=== PATIENT | female | born 1960 | race African-American/Black ===

== ENCOUNTER 2018-12-14 17:45 | Inpatient (IN) ==
[2018-12-14 19:23] LABS: Apearance,Urine CLEAR (Clear); Bilirubin,Urine Small mg/dL (Negative); Blood, Urine Negative (Negative); Glucose,Urine (UA) Negative (Negative); Hyaline Casts,Urine 7 /LPF (0-3); Ketones,Urine Negative (Negative); Mucus,Urine Occasional /LPF (Occasional); Nitrite,Urine Negative (Negative); Protein,Urine 30 MG/DL; RBC,Urine 2 /HPF (0-4); Squamous Epithelial Cell,Urine Occasional /HPF (0-10); Urine Color Dark yellow (Yellow); Urine Specific Gravity 1.029 (1.001-1.035); WBC,Urine 1 /HPF (0-6)
[2018-12-14 19:43] LABS: Basophils % 0.2 % (0.0-0.8); Hematocrit 36.4 VOL% (35.7-47.0); Hemoglobin 11.5 GM/DL (12.0-16.0); Immature Granulocytes % 0.7 %; Lymphocytes # 0.6 10*3/uL (1.4-4.0); Mean Corpuscular HGB Conc 31.6 GM/DL (32-36); Mean Corpuscular Hemoglobin 32 PG (27-34); Mean Corpuscular Volume 102.2 FL (87-102); Mean Platelet Volume 10.6 FL (9.6-12.0); Monocytes # 0.5 10*3/uL (0.11-0.8); Monocytes % 3.2 % (1.7-12.7); Neutrophils # 13.9 10*3/uL (1.4-7.4); Neutrophils % 91.9 % (38.7-73.9); Platelet Count 168 T/CUMM (130-400); Red Blood Count 3.56 MC/CUMM (3.8-5.5); Red Cell Distribution Width 13.6 % (9.3-17.3); White Blood Count 15.1 T/CUMM (4-12)
[2018-12-14 20:01] LABS: Alanine Aminotransferase 33 U/L (13-56); Albumin 3.3 G/DL (3.4-5.0); Alkaline Phosphatase 210 U/L (45-117); Aspartate Amino Transferase 45 U/L (0-37); Blood Urea Nitrogen 23 MG/DL (7-18); Calcium 8.8 MG/DL (8.5-10.1); Glucose 78 MG/DL (74-106); Osmolality,Calculated 275.8 MOS/KG (273-304); Potassium 3.6 MMOL/L (3.5-5.1); Sodium 137 MMOL/L (136-145); Total Protein 7.8 G/DL (6.4-8.3)
[2018-12-14 20:03] LABS: Band Neutrophils 13 % (0-10); Lymphocytes 2 % (20-55); Platelet Estimate Adequate; Segmented Neutrophils 82 % (50-85); Total Cells Counted 100
[2018-12-14] MEDS ORDERED: IBUPROFEN 800 MG TABLET PO STA (21:42)
[2018-12-14] MEDS ORDERED: IBUPROFEN 400 MG TABLET ONE (21:44)
[2018-12-14] MEDS ORDERED: SODIUM CHLORIDE 0.9% 1,000 ML IV STA (22:02)
[2018-12-14] MEDS ORDERED: HYDROmorphone 2 MG/1 ML VIAL IV STA (22:17)
[2018-12-14] MEDS ORDERED: HYDROmorphone 2 MG/1 ML VIAL ONE (22:18)
[2018-12-14] MEDS ORDERED: ONDANSETRON 4 MG/2 ML VIAL IV PRN (22:32)
[2018-12-14] MEDS ORDERED: LORATADINE 10 MG TABLET PO PRN (22:41)
[2018-12-14] MEDS: SODIUM CHLORIDE 0.9% 1,000 ML IV SCH (23:52)
[2018-12-15] MEDS: AZTREONAM 2,000 MG in SYRINGE 1 EACH IV SCH ×4 (01:13→21:36)
[2018-12-15] MEDS: DULoxetine 30 MG CAPSULE PO SCH ×2 (01:13→21:13)
[2018-12-15] MEDS: VANCOMYCIN INJ 2,000 MG in SODIUM CHLORIDE 0.9% 500 ML IV SCH ×2 (01:22→13:54)
[2018-12-15] MEDS: HYDROmorphone 2 MG/1 ML VIAL IV PRN ×6 (02:29→23:14)
[2018-12-15] MEDS: oxyCODONE IR 5 MG TABLET PO PRN ×2 (04:34→21:14)
[2018-12-15] MEDS: LEVOTHYROXINE 100 MCG TABLET PO SCH (05:39)
[2018-12-15 07:17] LABS: Basophils % 0.2 % (0.0-0.8); Hematocrit 34.2 VOL% (35.7-47.0); Hemoglobin 10.8 GM/DL (12.0-16.0); Immature Granulocytes % 0.4 %; Immature Granulocytes Absolute 0.05 #; Lymphocytes # 0.4 10*3/uL (1.4-4.0); Lymphocytes % 3.6 % (21.3-54.2); Mean Corpuscular HGB Conc 31.6 GM/DL (32-36); Mean Corpuscular Hemoglobin 32 PG (27-34); Mean Corpuscular Volume 101.2 FL (87-102); Mean Platelet Volume 10.7 FL (9.6-12.0); Monocytes # 0.5 10*3/uL (0.11-0.8); Monocytes % 4.2 % (1.7-12.7); Neutrophils # 10.4 10*3/uL (1.4-7.4); Neutrophils % 91.6 % (38.7-73.9); Platelet Count 139 T/CUMM (130-400); Red Blood Count 3.38 MC/CUMM (3.8-5.5); White Blood Count 11.3 T/CUMM (4-12)
[2018-12-15 07:36] LABS: Albumin 2.9 G/DL (3.4-5.0); Bilirubin,Total 0.8 MG/DL (0.2-1.0); Calcium 8.2 MG/DL (8.5-10.1); Osmolality,Calculated 265.5 MOS/KG (273-304); Potassium 3.3 MMOL/L (3.5-5.1); Total Protein 7.3 G/DL (6.4-8.3)
[2018-12-15 07:41] LABS: Band Neutrophils 23 % (0-10); Lymphocytes 3 % (20-55); Polychromasia Slight; Segmented Neutrophils 70 % (50-85); Total Cells Counted 100
[2018-12-15 07:42] LABS: Ovalocytes Slight; Platelet Estimate Adequate; Schistocytes Slight; Tear Drop Cells Slight
[2018-12-15] MEDS: ENOXAPARIN 40 MG/0.4 ML SYRINGE SUBCUT SCH (09:22)
[2018-12-15] MEDS: GABAPENTIN 600 MG TABLET PO SCH ×2 (09:23→21:14)
[2018-12-15] MEDS: CHOLECALCIFEROL 1,000 UNIT TABLET PO SCH (09:23)
[2018-12-15] MEDS: FERROUS SULFATE 325 MG TABLET PO SCH ×2 (09:23→21:13)
[2018-12-15] MEDS: DIAZEPAM 5 MG TABLET PO SCH ×2 (09:23→21:14)
[2018-12-15] MEDS: VITAMIN E 400 UNIT CAPSULE PO SCH (09:23)
[2018-12-15] MEDS: PANTOPRAZOLE 40 MG TABLET PO SCH (09:23)
[2018-12-15] MEDS: ASCORBIC ACID 500 MG TABLET PO SCH (09:24)
[2018-12-15] MEDS: valACYclovir 500 MG TABLET PO SCH (09:24)
[2018-12-15] MEDS: CILOSTAZOL 50 MG TABLET PO SCH ×2 (10:48→21:13)
[2018-12-15] MEDS ORDERED: HYDROmorphone 2 MG/1 ML VIAL IV ONE (11:00)
[2018-12-15] MEDS: SODIUM CHLORIDE 0.9% 1,000 ML IV SCH ×2 (11:09→21:12)
[2018-12-15] MEDS: LINACLOTIDE 145 MCG CAPSULE PO SCH (11:11)
[2018-12-15] MEDS: POTASSIUM CHLORIDE 8 MEQ CAPSULE PO SCH (11:11)
[2018-12-15] MEDS: ACETAMINOPHEN 325 MG TABLET PO PRN ×2 (13:53→21:13)
[2018-12-15] MEDS: METHOCARBAMOL 500 MG TABLET PO PRN ×2 (13:54→18:25)
[2018-12-15] MEDS: PERPHENAZINE 2 MG TABLET PO SCH (21:14)
[2018-12-16] MEDS: VANCOMYCIN INJ 2,000 MG in SODIUM CHLORIDE 0.9% 500 ML IV SCH ×2 (00:41→14:08)
[2018-12-16] MEDS: HYDROmorphone 2 MG/1 ML VIAL IV PRN ×7 (02:34→23:44)
[2018-12-16] MEDS: AZTREONAM 2,000 MG in SYRINGE 1 EACH IV SCH ×2 (02:35→08:28)
[2018-12-16] MEDS: LEVOTHYROXINE 100 MCG TABLET PO SCH (07:08)
[2018-12-16] MEDS: CHOLECALCIFEROL 1,000 UNIT TABLET PO SCH (08:23)
[2018-12-16] MEDS: valACYclovir 500 MG TABLET PO SCH (08:24)
[2018-12-16] MEDS: POTASSIUM CHLORIDE 8 MEQ CAPSULE PO SCH (08:24)
[2018-12-16] MEDS: ASCORBIC ACID 500 MG TABLET PO SCH (08:24)
[2018-12-16] MEDS: GABAPENTIN 600 MG TABLET PO SCH ×2 (08:25→21:03)
[2018-12-16] MEDS: CILOSTAZOL 50 MG TABLET PO SCH ×2 (08:25→21:03)
[2018-12-16] MEDS: ACETAMINOPHEN 325 MG TABLET PO PRN ×3 (08:25→23:43)
[2018-12-16] MEDS: VITAMIN E 400 UNIT CAPSULE PO SCH (08:25)
[2018-12-16] MEDS: FERROUS SULFATE 325 MG TABLET PO SCH ×2 (08:25→21:03)
[2018-12-16] MEDS: LINACLOTIDE 145 MCG CAPSULE PO SCH (08:26)
[2018-12-16] MEDS: DIAZEPAM 5 MG TABLET PO SCH ×2 (08:26→21:03)
[2018-12-16] MEDS: PANTOPRAZOLE 40 MG TABLET PO SCH (08:26)
[2018-12-16] MEDS: ENOXAPARIN 40 MG/0.4 ML SYRINGE SUBCUT SCH (08:27)
[2018-12-16] MEDS: SODIUM CHLORIDE 0.9% 1,000 ML IV SCH ×2 (08:28→16:34)
[2018-12-16] MEDS: oxyCODONE IR 5 MG TABLET PO PRN (10:02)
[2018-12-16] MEDS ORDERED: KETOROLAC 30 MG/1 ML VIAL IV ONE (15:00)
[2018-12-16] MEDS: METHOCARBAMOL 500 MG TABLET PO PRN (15:41)
[2018-12-16] MEDS: DULoxetine 30 MG CAPSULE PO SCH (21:03)
[2018-12-16] MEDS: KETOROLAC 15 MG/1 ML VIAL IV SCH (21:03)
[2018-12-16] MEDS: PERPHENAZINE 2 MG TABLET PO SCH (21:03)
[2018-12-17] MEDS: VANCOMYCIN INJ 2,000 MG in SODIUM CHLORIDE 0.9% 500 ML IV SCH ×2 (01:16→13:20)
[2018-12-17] MEDS: KETOROLAC 15 MG/1 ML VIAL IV SCH ×4 (03:35→20:45)
[2018-12-17] MEDS: SODIUM CHLORIDE 0.9% 1,000 ML IV SCH ×2 (05:16→14:24)
[2018-12-17 05:37] LABS: Calcium 8.4 MG/DL (8.5-10.1); Osmolality,Calculated 270.8 MOS/KG (273-304); Potassium 3.4 MMOL/L (3.5-5.1)
[2018-12-17] MEDS: METHOCARBAMOL 500 MG TABLET PO PRN (06:13)
[2018-12-17] MEDS: LEVOTHYROXINE 100 MCG TABLET PO SCH (06:13)
[2018-12-17] MEDS: HYDROmorphone 2 MG/1 ML VIAL IV PRN ×3 (07:06→14:24)
[2018-12-17] MEDS: MULTIVITAMIN (BEROCCA) TABLET PO SCH (08:40)
[2018-12-17] MEDS: CILOSTAZOL 50 MG TABLET PO SCH ×2 (08:40→20:45)
[2018-12-17] MEDS: valACYclovir 500 MG TABLET PO SCH (08:40)
[2018-12-17] MEDS: VITAMIN E 400 UNIT CAPSULE PO SCH (08:40)
[2018-12-17] MEDS: DIAZEPAM 5 MG TABLET PO SCH ×2 (08:40→20:45)
[2018-12-17] MEDS: FERROUS SULFATE 325 MG TABLET PO SCH ×2 (08:41→20:45)
[2018-12-17] MEDS: POTASSIUM CHLORIDE 8 MEQ CAPSULE PO SCH (08:41)
[2018-12-17] MEDS: ENOXAPARIN 40 MG/0.4 ML SYRINGE SUBCUT SCH (08:41)
[2018-12-17] MEDS: GABAPENTIN 600 MG TABLET PO SCH ×2 (08:41→20:45)
[2018-12-17] MEDS: CHOLECALCIFEROL 1,000 UNIT TABLET PO SCH (08:41)
[2018-12-17] MEDS: ASCORBIC ACID 500 MG TABLET PO SCH (08:41)
[2018-12-17] MEDS: LINACLOTIDE 145 MCG CAPSULE PO SCH (08:41)
[2018-12-17] MEDS: PANTOPRAZOLE 40 MG TABLET PO SCH (08:41)
[2018-12-17] MEDS: fentaNYL 100 MCG/HR PATCH TRANSDERM SCH (08:52)
[2018-12-17] MEDS ORDERED: POTASSIUM CHLORIDE 20 MEQ TABLET PO ONE (10:30)
[2018-12-17] MEDS: ERGOCALCIFEROL 50,000 UNIT CAPSULE PO SCH (10:40)
[2018-12-17] MEDS ORDERED: ALBUTEROL/IPRATROPIUM 3 ML NEB RESP TX ONE (12:19)
[2018-12-17] MEDS: ACETAMINOPHEN 325 MG TABLET PO PRN ×2 (12:47→20:45)
[2018-12-17 12:51] LABS: ABG Base Excess -3.1 MMOL/L (-2.5-2.5); ABG HCO3 21.6 MMOL/L (20-26); ABG Oxygen Saturation 86.2 % (95-100); ABG PCO2 32.9 MM HG (35-48); ABG PH 7.409 (7.35-7.45); ABG TCO2 18.8 MMOL/L (23-27); Allen Test Positive
[2018-12-17] MEDS: oxyCODONE IR 5 MG TABLET PO PRN (13:22)
[2018-12-17] MEDS: ALBUTEROL/IPRATROPIUM 3 ML NEB RESP TX SCH ×4 (14:10→23:06)
[2018-12-17] MEDS: DULoxetine 30 MG CAPSULE PO SCH (20:45)
[2018-12-17] MEDS: PERPHENAZINE 2 MG TABLET PO SCH (20:52)
[2018-12-18] MEDS: HYDROmorphone 2 MG/1 ML VIAL IV PRN ×7 (01:02→23:28)
[2018-12-18] MEDS: VANCOMYCIN INJ 2,000 MG in SODIUM CHLORIDE 0.9% 500 ML IV SCH ×2 (01:04→12:24)
[2018-12-18] MEDS: KETOROLAC 15 MG/1 ML VIAL IV SCH ×4 (03:18→20:55)
[2018-12-18] MEDS: ALBUTEROL/IPRATROPIUM 3 ML NEB RESP TX SCH ×5 (03:57→19:58)
[2018-12-18] MEDS: ACETAMINOPHEN 325 MG TABLET PO PRN ×3 (06:21→21:00)
[2018-12-18] MEDS: LEVOTHYROXINE 100 MCG TABLET PO SCH (06:21)
[2018-12-18] MEDS: METHOCARBAMOL 500 MG TABLET PO PRN (06:21)
[2018-12-18] MEDS: VITAMIN E 400 UNIT CAPSULE PO SCH (08:39)
[2018-12-18] MEDS: MULTIVITAMIN (BEROCCA) TABLET PO SCH (08:39)
[2018-12-18] MEDS: DIAZEPAM 5 MG TABLET PO SCH ×2 (08:39→21:02)
[2018-12-18] MEDS: GABAPENTIN 600 MG TABLET PO SCH ×2 (08:39→21:01)
[2018-12-18] MEDS: ASCORBIC ACID 500 MG TABLET PO SCH (08:39)
[2018-12-18] MEDS: valACYclovir 500 MG TABLET PO SCH (08:40)
[2018-12-18] MEDS: PANTOPRAZOLE 40 MG TABLET PO SCH (08:40)
[2018-12-18] MEDS: CILOSTAZOL 50 MG TABLET PO SCH (08:40)
[2018-12-18] MEDS: FERROUS SULFATE 325 MG TABLET PO SCH ×2 (08:40→21:02)
[2018-12-18] MEDS: POTASSIUM CHLORIDE 20 MEQ TABLET PO SCH (08:40)
[2018-12-18] MEDS: SODIUM CHLORIDE 0.9% 1,000 ML IV SCH (08:41)
[2018-12-18] MEDS: ENOXAPARIN 40 MG/0.4 ML SYRINGE SUBCUT SCH (08:41)
[2018-12-18] MEDS: LINACLOTIDE 145 MCG CAPSULE PO SCH (08:54)
[2018-12-18] MEDS ORDERED: FUROSEMIDE 40 MG/4 ML VIAL IV ONE (10:30)
[2018-12-18] MEDS: oxyCODONE IR 5 MG TABLET PO PRN (10:56)
[2018-12-18] MEDS: FUROSEMIDE 20 MG/2 ML VIAL IV SCH (15:47)
[2018-12-18] MEDS: LEVOFLOXACIN INJ 750 MG in PREMIX 1 EACH IV SCH (15:48)
[2018-12-18] MEDS: MEROPENEM 1,000 MG in SODIUM CHLORIDE 0.9% 100 ML IV SCH (17:27)
[2018-12-18] MEDS: PERPHENAZINE 2 MG TABLET PO SCH (21:00)
[2018-12-18] MEDS: DULoxetine 30 MG CAPSULE PO SCH (21:01)
[2018-12-19] MEDS: ALBUTEROL/IPRATROPIUM 3 ML NEB RESP TX SCH ×7 (00:12→23:27)
[2018-12-19] MEDS: oxyCODONE IR 5 MG TABLET PO PRN ×2 (00:38→08:07)
[2018-12-19] MEDS: VANCOMYCIN INJ 2,000 MG in SODIUM CHLORIDE 0.9% 500 ML IV SCH ×3 (00:39→16:49)
[2018-12-19] MEDS: KETOROLAC 15 MG/1 ML VIAL IV SCH ×4 (02:43→20:12)
[2018-12-19] MEDS: MEROPENEM 1,000 MG in SODIUM CHLORIDE 0.9% 100 ML IV SCH ×3 (02:47→20:10)
[2018-12-19] MEDS: HYDROmorphone 2 MG/1 ML VIAL IV PRN ×6 (03:47→23:15)
[2018-12-19 05:46] LABS: Basophils % 0.2 % (0.0-0.8); Eosinophils # 0.2 10*3/uL (0.0-0.87); Eosinophils % 0.9 % (0.00-10.9); Hematocrit 29.5 VOL% (35.7-47.0); Hemoglobin 9.3 GM/DL (12.0-16.0); Immature Granulocytes Absolute 0.68 #; Lymphocytes # 1.5 10*3/uL (1.4-4.0); Lymphocytes % 8.9 % (21.3-54.2); Mean Corpuscular HGB Conc 31.5 GM/DL (32-36); Mean Corpuscular Hemoglobin 32 PG (27-34); Mean Corpuscular Volume 100.3 FL (87-102); Mean Platelet Volume 10.7 FL (9.6-12.0); Monocytes # 1.4 10*3/uL (0.11-0.8); Neutrophils # 13.3 10*3/uL (1.4-7.4); Platelet Count 244 T/CUMM (130-400); Red Blood Count 2.94 MC/CUMM (3.8-5.5); Red Cell Distribution Width 14.8 % (9.3-17.3); White Blood Count 17.1 T/CUMM (4-12)
[2018-12-19 06:05] LABS: Calcium 8.6 MG/DL (8.5-10.1)
[2018-12-19 06:06] LABS: Band Neutrophils 1 % (0-10); Hypochromasia 1+; Lymphocytes 11 % (20-55); Ovalocytes Slight; Platelet Estimate Adequate; Segmented Neutrophils 82 % (50-85); Total Cells Counted 100
[2018-12-19] MEDS: LEVOTHYROXINE 100 MCG TABLET PO SCH (06:47)
[2018-12-19 06:50] LABS: HIV Antigen/Antibody Result Nonreactive (Nonreactive)
[2018-12-19] MEDS: valACYclovir 500 MG TABLET PO SCH (09:46)
[2018-12-19] MEDS: ENOXAPARIN 40 MG/0.4 ML SYRINGE SUBCUT SCH (09:46)
[2018-12-19] MEDS: FUROSEMIDE 20 MG/2 ML VIAL IV SCH ×2 (09:47→18:16)
[2018-12-19] MEDS: FERROUS SULFATE 325 MG TABLET PO SCH ×2 (09:47→20:12)
[2018-12-19] MEDS: GABAPENTIN 600 MG TABLET PO SCH ×2 (09:47→20:12)
[2018-12-19] MEDS: VITAMIN E 400 UNIT CAPSULE PO SCH (09:47)
[2018-12-19] MEDS: DIAZEPAM 5 MG TABLET PO SCH ×2 (09:47→20:12)
[2018-12-19] MEDS: POTASSIUM CHLORIDE 20 MEQ TABLET PO SCH (09:47)
[2018-12-19] MEDS: MULTIVITAMIN (BEROCCA) TABLET PO SCH (09:47)
[2018-12-19] MEDS: ASCORBIC ACID 500 MG TABLET PO SCH (09:48)
[2018-12-19] MEDS: LINACLOTIDE 145 MCG CAPSULE PO SCH (09:49)
[2018-12-19] MEDS: PANTOPRAZOLE 40 MG TABLET PO SCH (09:49)
[2018-12-19] MEDS: PERPHENAZINE 2 MG TABLET PO SCH (20:12)
[2018-12-19] MEDS: DULoxetine 30 MG CAPSULE PO SCH (20:12)
[2018-12-19] MEDS: LEVOFLOXACIN INJ 750 MG in PREMIX 1 EACH IV SCH (22:14)
[2018-12-20] MEDS: METHOCARBAMOL 500 MG TABLET PO PRN ×2 (00:39→23:46)
[2018-12-20] MEDS: ACETAMINOPHEN 325 MG TABLET PO PRN (01:30)
[2018-12-20] MEDS: oxyCODONE IR 5 MG TABLET PO PRN ×2 (01:36→12:06)
[2018-12-20] MEDS: ALBUTEROL/IPRATROPIUM 3 ML NEB RESP TX SCH ×6 (02:51→23:42)
[2018-12-20] MEDS: MEROPENEM 1,000 MG in SODIUM CHLORIDE 0.9% 100 ML IV SCH ×3 (03:00→17:49)
[2018-12-20] MEDS: KETOROLAC 15 MG/1 ML VIAL IV SCH ×4 (03:00→20:20)
[2018-12-20] MEDS: HYDROmorphone 2 MG/1 ML VIAL IV PRN ×5 (03:43→23:42)
[2018-12-20 04:13] LABS: Basophils % 0.2 % (0.0-0.8); Eosinophils # 0.1 10*3/uL (0.0-0.87); Eosinophils % 0.7 % (0.00-10.9); Hematocrit 27.5 VOL% (35.7-47.0); Hemoglobin 8.7 GM/DL (12.0-16.0); Immature Granulocytes % 4.7 %; Lymphocytes # 1.4 10*3/uL (1.4-4.0); Lymphocytes % 8.5 % (21.3-54.2); Mean Corpuscular HGB Conc 31.6 GM/DL (32-36); Mean Corpuscular Hemoglobin 31 PG (27-34); Mean Corpuscular Volume 98.6 FL (87-102); Monocytes # 1.3 10*3/uL (0.11-0.8); Monocytes % 7.5 % (1.7-12.7); Neutrophils # 13.3 10*3/uL (1.4-7.4); Neutrophils % 78.4 % (38.7-73.9); Platelet Count 306 T/CUMM (130-400); Red Blood Count 2.79 MC/CUMM (3.8-5.5); Red Cell Distribution Width 14.5 % (9.3-17.3)
[2018-12-20 04:22] LABS: Calcium 8.3 MG/DL (8.5-10.1); Osmolality,Calculated 266.2 MOS/KG (273-304); Potassium 3.6 MMOL/L (3.5-5.1)
[2018-12-20 06:27] LABS: Anisocytosis 1+; Eosinophils 2 % (0-10); Lymphocytes 12 % (20-55); Segmented Neutrophils 81 % (50-85); Total Cells Counted 100
[2018-12-20 06:28] LABS: Hypochromasia Slight; Ovalocytes Slight; Platelet Estimate Adequate
[2018-12-20] MEDS: LEVOTHYROXINE 100 MCG TABLET PO SCH (06:32)
[2018-12-20] MEDS: POTASSIUM CHLORIDE 20 MEQ TABLET PO SCH (08:14)
[2018-12-20] MEDS: LINACLOTIDE 145 MCG CAPSULE PO SCH (08:14)
[2018-12-20] MEDS: FERROUS SULFATE 325 MG TABLET PO SCH ×2 (08:15→20:20)
[2018-12-20] MEDS: PANTOPRAZOLE 40 MG TABLET PO SCH (08:15)
[2018-12-20] MEDS: valACYclovir 500 MG TABLET PO SCH (08:15)
[2018-12-20] MEDS: ASCORBIC ACID 500 MG TABLET PO SCH (08:15)
[2018-12-20] MEDS: GABAPENTIN 600 MG TABLET PO SCH ×2 (08:15→20:20)
[2018-12-20] MEDS: MULTIVITAMIN (BEROCCA) TABLET PO SCH (08:15)
[2018-12-20] MEDS: VITAMIN E 400 UNIT CAPSULE PO SCH (08:16)
[2018-12-20] MEDS: DIAZEPAM 5 MG TABLET PO SCH ×2 (08:16→20:20)
[2018-12-20] MEDS: FUROSEMIDE 20 MG/2 ML VIAL IV SCH ×2 (08:20→16:17)
[2018-12-20] MEDS: fentaNYL 100 MCG/HR PATCH TRANSDERM SCH (08:21)
[2018-12-20] MEDS: ENOXAPARIN 40 MG/0.4 ML SYRINGE SUBCUT SCH (08:24)
[2018-12-20] MEDS: VANCOMYCIN INJ 2,000 MG in SODIUM CHLORIDE 0.9% 500 ML IV SCH (14:20)
[2018-12-20] MEDS: LEVOFLOXACIN INJ 750 MG in PREMIX 1 EACH IV SCH (16:19)
[2018-12-20] MEDS: DULoxetine 30 MG CAPSULE PO SCH (20:19)
[2018-12-20] MEDS: PERPHENAZINE 2 MG TABLET PO SCH (20:24)
[2018-12-21] MEDS: MEROPENEM 1,000 MG in SODIUM CHLORIDE 0.9% 100 ML IV SCH ×3 (01:13→17:00)
[2018-12-21] MEDS: oxyCODONE IR 5 MG TABLET PO PRN ×2 (02:30→20:24)
[2018-12-21] MEDS: KETOROLAC 15 MG/1 ML VIAL IV SCH ×3 (03:30→15:28)
[2018-12-21] MEDS: ALBUTEROL/IPRATROPIUM 3 ML NEB RESP TX SCH ×5 (03:30→23:00)
[2018-12-21 05:09] LABS: Basophils # 0.1 10*3/uL (0.0-0.2); Basophils % 0.2 % (0.0-0.8); Eosinophils # 0.1 10*3/uL (0.0-0.87); Eosinophils % 0.5 % (0.00-10.9); Hematocrit 27.8 VOL% (35.7-47.0); Hemoglobin 8.9 GM/DL (12.0-16.0); Immature Granulocytes % 4.8 %; Immature Granulocytes Absolute 0.97 #; Lymphocytes # 1.8 10*3/uL (1.4-4.0); Lymphocytes % 8.6 % (21.3-54.2); Mean Corpuscular Hemoglobin 32 PG (27-34); Mean Corpuscular Volume 98.6 FL (87-102); Mean Platelet Volume 9.6 FL (9.6-12.0); Monocytes # 1.3 10*3/uL (0.11-0.8); Monocytes % 6.5 % (1.7-12.7); Neutrophils # 16.1 10*3/uL (1.4-7.4); Neutrophils % 79.4 % (38.7-73.9); Platelet Count 359 T/CUMM (130-400); Red Blood Count 2.82 MC/CUMM (3.8-5.5); Red Cell Distribution Width 14.6 % (9.3-17.3); White Blood Count 20.3 T/CUMM (4-12)
[2018-12-21 05:29] LABS: Calcium 8.4 MG/DL (8.5-10.1); Osmolality,Calculated 272.8 MOS/KG (273-304); Potassium 3.8 MMOL/L (3.5-5.1)
[2018-12-21] MEDS: LEVOTHYROXINE 100 MCG TABLET PO SCH (05:32)
[2018-12-21] MEDS: HYDROmorphone 2 MG/1 ML VIAL IV PRN ×5 (05:32→22:17)
[2018-12-21 05:44] LABS: Anisocytosis 1+; Band Neutrophils 1 % (0-10); Hypochromasia 1+; Lymphocytes 10 % (20-55); Platelet Estimate Adequate; Segmented Neutrophils 81 % (50-85); Total Cells Counted 100
[2018-12-21] MEDS: FUROSEMIDE 20 MG/2 ML VIAL IV SCH ×2 (09:30→16:05)
[2018-12-21] MEDS: MULTIVITAMIN (BEROCCA) TABLET PO SCH (09:44)
[2018-12-21] MEDS: valACYclovir 500 MG TABLET PO SCH (09:44)
[2018-12-21] MEDS: DIAZEPAM 5 MG TABLET PO SCH ×2 (09:44→20:24)
[2018-12-21] MEDS: VITAMIN E 400 UNIT CAPSULE PO SCH (09:45)
[2018-12-21] MEDS: GABAPENTIN 600 MG TABLET PO SCH ×2 (09:45→20:23)
[2018-12-21] MEDS: ASCORBIC ACID 500 MG TABLET PO SCH (09:45)
[2018-12-21] MEDS: FERROUS SULFATE 325 MG TABLET PO SCH ×2 (09:45→20:24)
[2018-12-21] MEDS: LINACLOTIDE 145 MCG CAPSULE PO SCH (09:45)
[2018-12-21] MEDS: PANTOPRAZOLE 40 MG TABLET PO SCH (09:45)
[2018-12-21] MEDS: ENOXAPARIN 40 MG/0.4 ML SYRINGE SUBCUT SCH (09:46)
[2018-12-21] MEDS: VANCOMYCIN INJ 2,000 MG in SODIUM CHLORIDE 0.9% 500 ML IV SCH (14:00)
[2018-12-21] MEDS: POTASSIUM CHLORIDE 20 MEQ TABLET PO SCH (15:27)
[2018-12-21] MEDS: LEVOFLOXACIN INJ 750 MG in PREMIX 1 EACH IV SCH (16:30)
[2018-12-21] MEDS: DULoxetine 30 MG CAPSULE PO SCH (20:22)
[2018-12-21] MEDS: PERPHENAZINE 2 MG TABLET PO SCH (20:22)
[2018-12-21] MEDS: SENNA 8.6 MG TABLET PO SCH (22:48)
[2018-12-21] MEDS: LUBIPROSTONE 24 MCG CAPSULE PO SCH (22:49)
[2018-12-21] MEDS: METHOCARBAMOL 500 MG TABLET PO PRN (23:25)
[2018-12-22] MEDS: HYDROmorphone 2 MG/1 ML VIAL IV PRN ×7 (00:24→21:08)
[2018-12-22] MEDS: MEROPENEM 1,000 MG in SODIUM CHLORIDE 0.9% 100 ML IV SCH ×2 (00:44→09:27)
[2018-12-22] MEDS: ACETAMINOPHEN 325 MG TABLET PO PRN (00:45)
[2018-12-22] MEDS: ALBUTEROL/IPRATROPIUM 3 ML NEB RESP TX SCH ×6 (02:40→22:41)
[2018-12-22] MEDS: oxyCODONE IR 5 MG TABLET PO PRN ×3 (03:23→23:06)
[2018-12-22 05:30] LABS: Basophils # 0.1 10*3/uL (0.0-0.2); Basophils % 0.3 % (0.0-0.8); Eosinophils # 0.1 10*3/uL (0.0-0.87); Eosinophils % 0.2 % (0.00-10.9); Hematocrit 27.1 VOL% (35.7-47.0); Hemoglobin 8.9 GM/DL (12.0-16.0); Immature Granulocytes % 4.4 %; Immature Granulocytes Absolute 1.08 #; Lymphocytes # 1.9 10*3/uL (1.4-4.0); Lymphocytes % 7.7 % (21.3-54.2); Mean Corpuscular HGB Conc 32.8 GM/DL (32-36); Mean Corpuscular Hemoglobin 32 PG (27-34); Mean Corpuscular Volume 98.5 FL (87-102); Mean Platelet Volume 9.5 FL (9.6-12.0); Monocytes # 1.3 10*3/uL (0.11-0.8); Monocytes % 5.3 % (1.7-12.7); Neutrophils # 19.9 10*3/uL (1.4-7.4); Neutrophils % 82.1 % (38.7-73.9); Platelet Count 397 T/CUMM (130-400); Red Blood Count 2.75 MC/CUMM (3.8-5.5); Red Cell Distribution Width 14.5 % (9.3-17.3); White Blood Count 24.3 T/CUMM (4-12)
[2018-12-22 05:58] LABS: Band Neutrophils 4 % (0-10); Hypochromasia 1+; Lymphocytes 4 % (20-55); Platelet Estimate Adequate; Segmented Neutrophils 86 % (50-85); Total Cells Counted 100
[2018-12-22 06:06] LABS: Calcium 8.9 MG/DL (8.5-10.1); Osmolality,Calculated 265.2 MOS/KG (273-304); Potassium 4.1 MMOL/L (3.5-5.1)
[2018-12-22] MEDS: LEVOTHYROXINE 100 MCG TABLET PO SCH (06:26)
[2018-12-22] MEDS ORDERED: MIDAZOLAM 10 MG/2 ML VIAL ONE (07:25)
[2018-12-22] MEDS ORDERED: MEPERIDINE 25 MG/1 ML VIAL ONE (07:25)
[2018-12-22] MEDS ORDERED: SODIUM CHLORIDE 0.9% 1,000 ML IV SCH (07:30)
[2018-12-22] MEDS ORDERED: MEPERIDINE 25 MG/1 ML VIAL IV ONE (08:14)
[2018-12-22] MEDS ORDERED: MIDAZOLAM 2 MG/2 ML VIAL IV ONE (08:14)
[2018-12-22] MEDS: FUROSEMIDE 20 MG/2 ML VIAL IV SCH ×2 (09:30→16:23)
[2018-12-22] MEDS: ENOXAPARIN 40 MG/0.4 ML SYRINGE SUBCUT SCH (09:38)
[2018-12-22] MEDS ORDERED: oxyCODONE IR 5 MG TABLET PO PRN (11:50)
[2018-12-22] MEDS: POLYETHYLENE GLYCOL POWDER 17 GM PACK PO SCH ×2 (12:24→21:15)
[2018-12-22] MEDS: POTASSIUM CHLORIDE 20 MEQ TABLET PO SCH (12:25)
[2018-12-22] MEDS: ASCORBIC ACID 500 MG TABLET PO SCH (12:25)
[2018-12-22] MEDS: FERROUS SULFATE 325 MG TABLET PO SCH ×2 (12:25→22:00)
[2018-12-22] MEDS: VITAMIN E 400 UNIT CAPSULE PO SCH (12:25)
[2018-12-22] MEDS: MULTIVITAMIN (BEROCCA) TABLET PO SCH (12:25)
[2018-12-22] MEDS: LACTULOSE 20 GM/30 ML UDCUP PO SCH ×2 (12:25→22:00)
[2018-12-22] MEDS: valACYclovir 500 MG TABLET PO SCH (12:25)
[2018-12-22] MEDS: GABAPENTIN 600 MG TABLET PO SCH ×2 (12:25→21:14)
[2018-12-22] MEDS: DOCUSATE SODIUM 100 MG CAPSULE PO SCH ×2 (12:25→21:14)
[2018-12-22] MEDS: DIAZEPAM 5 MG TABLET PO SCH ×2 (12:26→21:14)
[2018-12-22] MEDS: PANTOPRAZOLE 40 MG TABLET PO SCH (12:26)
[2018-12-22] MEDS: LUBIPROSTONE 24 MCG CAPSULE PO SCH ×2 (12:26→21:54)
[2018-12-22] MEDS: VANCOMYCIN INJ 2,000 MG in SODIUM CHLORIDE 0.9% 500 ML IV SCH (16:28)
[2018-12-22] MEDS: LEVOFLOXACIN INJ 750 MG in PREMIX 1 EACH IV SCH (19:12)
[2018-12-22] MEDS: DULoxetine 30 MG CAPSULE PO SCH (21:14)
[2018-12-22] MEDS: PERPHENAZINE 2 MG TABLET PO SCH (21:53)
[2018-12-22] MEDS: SENNA 8.6 MG TABLET PO SCH (22:01)
[2018-12-22] MEDS ORDERED: SODIUM CHLORIDE 0.9% 1,000 ML IV PRN (23:27)
[2018-12-23] MEDS: HYDROmorphone 2 MG/1 ML VIAL IV PRN ×6 (00:05→23:42)
[2018-12-23 00:24] LABS: Hematocrit 26.7 VOL% (35.7-47.0); Hemoglobin 8.7 GM/DL (12.0-16.0)
[2018-12-23] MEDS: ACETAMINOPHEN 325 MG TABLET PO PRN (01:05)
[2018-12-23] MEDS: METHOCARBAMOL 500 MG TABLET PO PRN ×3 (01:05→20:32)
[2018-12-23] MEDS: ALBUTEROL/IPRATROPIUM 3 ML NEB RESP TX SCH ×6 (02:34→23:28)
[2018-12-23 05:41] LABS: Basophils % 0.2 % (0.0-0.8); Eosinophils # 0.1 10*3/uL (0.0-0.87); Eosinophils % 0.3 % (0.00-10.9); Hematocrit 28.8 VOL% (35.7-47.0); Hemoglobin 9.5 GM/DL (12.0-16.0); Immature Granulocytes Absolute 0.73 #; Lymphocytes % 8.1 % (21.3-54.2); Mean Corpuscular Hemoglobin 32 PG (27-34); Mean Corpuscular Volume 97.6 FL (87-102); Mean Platelet Volume 9.7 FL (9.6-12.0); Monocytes # 1.1 10*3/uL (0.11-0.8); Monocytes % 4.5 % (1.7-12.7); Neutrophils # 20.2 10*3/uL (1.4-7.4); Neutrophils % 83.9 % (38.7-73.9); Platelet Count 458 T/CUMM (130-400); Red Blood Count 2.95 MC/CUMM (3.8-5.5); Red Cell Distribution Width 14.2 % (9.3-17.3); White Blood Count 24.1 T/CUMM (4-12)
[2018-12-23] MEDS: VANCOMYCIN INJ 2,000 MG in SODIUM CHLORIDE 0.9% 500 ML IV SCH ×2 (05:45→18:16)
[2018-12-23 05:56] LABS: Calcium 9.1 MG/DL (8.5-10.1); Osmolality,Calculated 263.4 MOS/KG (273-304); Potassium 4.1 MMOL/L (3.5-5.1)
[2018-12-23 06:00] LABS: Band Neutrophils 1 % (0-10); Hypochromasia 1+; Lymphocytes 8 % (20-55); Polychromasia Slight; Segmented Neutrophils 89 % (50-85); Total Cells Counted 100
[2018-12-23 06:01] LABS: Giant Platelets Few; Macrocytosis Slight
[2018-12-23] MEDS: LACTULOSE 20 GM/30 ML UDCUP PO SCH ×2 (08:05→20:39)
[2018-12-23] MEDS: DIAZEPAM 5 MG TABLET PO SCH ×2 (08:05→20:31)
[2018-12-23] MEDS: LUBIPROSTONE 24 MCG CAPSULE PO SCH ×2 (08:05→20:32)
[2018-12-23] MEDS: DOCUSATE SODIUM 100 MG CAPSULE PO SCH ×2 (08:05→20:32)
[2018-12-23] MEDS: ASCORBIC ACID 500 MG TABLET PO SCH (08:06)
[2018-12-23] MEDS: PANTOPRAZOLE 40 MG TABLET PO SCH (08:06)
[2018-12-23] MEDS: VITAMIN E 400 UNIT CAPSULE PO SCH (08:06)
[2018-12-23] MEDS: GABAPENTIN 600 MG TABLET PO SCH ×2 (08:06→20:33)
[2018-12-23] MEDS: FERROUS SULFATE 325 MG TABLET PO SCH ×2 (08:06→20:33)
[2018-12-23] MEDS: MULTIVITAMIN (BEROCCA) TABLET PO SCH (08:06)
[2018-12-23] MEDS: valACYclovir 500 MG TABLET PO SCH (08:06)
[2018-12-23] MEDS: fentaNYL 100 MCG/HR PATCH TRANSDERM SCH (08:07)
[2018-12-23] MEDS: LEVOTHYROXINE 100 MCG TABLET PO SCH (08:07)
[2018-12-23] MEDS: POTASSIUM CHLORIDE 20 MEQ TABLET PO SCH (08:08)
[2018-12-23] MEDS: POLYETHYLENE GLYCOL POWDER 17 GM PACK PO SCH ×2 (08:09→20:39)
[2018-12-23] MEDS: ENOXAPARIN 40 MG/0.4 ML SYRINGE SUBCUT SCH (08:10)
[2018-12-23] MEDS: FUROSEMIDE 20 MG/2 ML VIAL IV SCH ×2 (08:31→15:50)
[2018-12-23] MEDS: LEVOFLOXACIN INJ 750 MG in PREMIX 1 EACH IV SCH (09:32)
[2018-12-23] MEDS: oxyCODONE IR 5 MG TABLET PO PRN ×3 (10:09→22:11)
[2018-12-23] MEDS: PERPHENAZINE 2 MG TABLET PO SCH (20:32)
[2018-12-23] MEDS: DULoxetine 30 MG CAPSULE PO SCH (20:32)
[2018-12-23] MEDS: SENNA 8.6 MG TABLET PO SCH (20:33)
[2018-12-24] MEDS: oxyCODONE IR 5 MG TABLET PO PRN ×5 (02:45→23:50)
[2018-12-24] MEDS: ALBUTEROL/IPRATROPIUM 3 ML NEB RESP TX SCH ×6 (03:15→19:00)
[2018-12-24] MEDS: HYDROmorphone 2 MG/1 ML VIAL IV PRN ×5 (04:22→20:21)
[2018-12-24 05:55] LABS: Calcium 8.9 MG/DL (8.5-10.1); Osmolality,Calculated 263.4 MOS/KG (273-304)
[2018-12-24 06:10] LABS: Basophils % 0.2 % (0.0-0.8); Eosinophils # 0.1 10*3/uL (0.0-0.87); Eosinophils % 0.4 % (0.00-10.9); Hematocrit 31.2 VOL% (35.7-47.0); Hemoglobin 9.4 GM/DL (12.0-16.0); Immature Granulocytes Absolute 0.38 #; Lymphocytes # 1.5 10*3/uL (1.4-4.0); Lymphocytes % 7.9 % (21.3-54.2); Mean Corpuscular HGB Conc 30.1 GM/DL (32-36); Mean Corpuscular Hemoglobin 31 PG (27-34); Mean Corpuscular Volume 103.7 FL (87-102); Mean Platelet Volume 10.3 FL (9.6-12.0); Neutrophils # 16.1 10*3/uL (1.4-7.4); Neutrophils % 84.5 % (38.7-73.9); Platelet Count 443 T/CUMM (130-400); Red Blood Count 3.01 MC/CUMM (3.8-5.5); Red Cell Distribution Width 14.4 % (9.3-17.3)
[2018-12-24] MEDS: LEVOTHYROXINE 100 MCG TABLET PO SCH (06:30)
[2018-12-24] MEDS: VANCOMYCIN INJ 2,000 MG in SODIUM CHLORIDE 0.9% 500 ML IV SCH ×2 (06:30→17:54)
[2018-12-24 06:31] LABS: Platelet Estimate Adequate
[2018-12-24 06:32] LABS: Hypochromasia Slight; Macrocytosis Slight
[2018-12-24] MEDS: FUROSEMIDE 20 MG/2 ML VIAL IV SCH ×2 (09:20→16:14)
[2018-12-24] MEDS: POTASSIUM CHLORIDE 20 MEQ TABLET PO SCH (09:21)
[2018-12-24] MEDS: LEVOFLOXACIN INJ 750 MG in PREMIX 1 EACH IV SCH (09:21)
[2018-12-24] MEDS: PANTOPRAZOLE 40 MG TABLET PO SCH (09:22)
[2018-12-24] MEDS: DOCUSATE SODIUM 100 MG CAPSULE PO SCH ×2 (09:22→20:25)
[2018-12-24] MEDS: valACYclovir 500 MG TABLET PO SCH (09:23)
[2018-12-24] MEDS: POLYETHYLENE GLYCOL POWDER 17 GM PACK PO SCH ×2 (09:23→20:19)
[2018-12-24] MEDS: VITAMIN E 400 UNIT CAPSULE PO SCH (09:23)
[2018-12-24] MEDS: FERROUS SULFATE 325 MG TABLET PO SCH ×2 (09:23→20:25)
[2018-12-24] MEDS: GABAPENTIN 600 MG TABLET PO SCH ×2 (09:23→20:26)
[2018-12-24] MEDS: ERGOCALCIFEROL 50,000 UNIT CAPSULE PO SCH (09:23)
[2018-12-24] MEDS: ASCORBIC ACID 500 MG TABLET PO SCH (09:23)
[2018-12-24] MEDS: ENOXAPARIN 40 MG/0.4 ML SYRINGE SUBCUT SCH (09:23)
[2018-12-24] MEDS: LACTULOSE 20 GM/30 ML UDCUP PO SCH ×2 (09:39→20:18)
[2018-12-24] MEDS: MULTIVITAMIN (BEROCCA) TABLET PO SCH (09:42)
[2018-12-24] MEDS: LUBIPROSTONE 24 MCG CAPSULE PO SCH ×2 (09:43→20:26)
[2018-12-24] MEDS: DIAZEPAM 5 MG TABLET PO SCH ×2 (16:51→20:25)
[2018-12-24] MEDS: PERPHENAZINE 2 MG TABLET PO SCH (20:20)
[2018-12-24] MEDS: SENNA 8.6 MG TABLET PO SCH (20:25)
[2018-12-24] MEDS: DULoxetine 30 MG CAPSULE PO SCH (20:37)
[2018-12-25] MEDS: HYDROmorphone 2 MG/1 ML VIAL IV PRN ×5 (02:17→22:04)
[2018-12-25] MEDS: ALBUTEROL/IPRATROPIUM 3 ML NEB RESP TX SCH ×7 (03:05→23:03)
[2018-12-25] MEDS: oxyCODONE IR 5 MG TABLET PO PRN ×3 (05:00→18:15)
[2018-12-25] MEDS: VANCOMYCIN INJ 2,000 MG in SODIUM CHLORIDE 0.9% 500 ML IV SCH (05:00)
[2018-12-25] MEDS: LEVOTHYROXINE 100 MCG TABLET PO SCH (06:08)
[2018-12-25] MEDS: LUBIPROSTONE 24 MCG CAPSULE PO SCH ×2 (10:37→21:58)
[2018-12-25] MEDS: ASCORBIC ACID 500 MG TABLET PO SCH (10:37)
[2018-12-25] MEDS: GABAPENTIN 600 MG TABLET PO SCH ×2 (10:37→21:57)
[2018-12-25] MEDS: VITAMIN E 400 UNIT CAPSULE PO SCH (10:37)
[2018-12-25] MEDS: DIAZEPAM 5 MG TABLET PO SCH ×2 (10:37→21:56)
[2018-12-25] MEDS: valACYclovir 500 MG TABLET PO SCH (10:37)
[2018-12-25] MEDS: PANTOPRAZOLE 40 MG TABLET PO SCH (10:38)
[2018-12-25] MEDS: FERROUS SULFATE 325 MG TABLET PO SCH ×2 (10:38→21:56)
[2018-12-25] MEDS: MULTIVITAMIN (BEROCCA) TABLET PO SCH (10:38)
[2018-12-25] MEDS: POTASSIUM CHLORIDE 20 MEQ TABLET PO SCH (10:38)
[2018-12-25] MEDS: FUROSEMIDE 20 MG/2 ML VIAL IV SCH ×2 (10:38→15:40)
[2018-12-25] MEDS: DOCUSATE SODIUM 100 MG CAPSULE PO SCH ×2 (10:38→21:56)
[2018-12-25] MEDS: POLYETHYLENE GLYCOL POWDER 17 GM PACK PO SCH ×2 (10:39→21:55)
[2018-12-25] MEDS: LACTULOSE 20 GM/30 ML UDCUP PO SCH ×2 (10:39→22:04)
[2018-12-25] MEDS: ENOXAPARIN 40 MG/0.4 ML SYRINGE SUBCUT SCH (10:39)
[2018-12-25] MEDS: METHOCARBAMOL 500 MG TABLET PO PRN (19:50)
[2018-12-25] MEDS: ACETAMINOPHEN 325 MG TABLET PO PRN (19:50)
[2018-12-25] MEDS: DULoxetine 30 MG CAPSULE PO SCH (21:56)
[2018-12-25] MEDS: SENNA 8.6 MG TABLET PO SCH (21:56)
[2018-12-25] MEDS: PERPHENAZINE 2 MG TABLET PO SCH (21:56)
[2018-12-26] MEDS: ALBUTEROL/IPRATROPIUM 3 ML NEB RESP TX SCH ×3 (02:29→11:04)
[2018-12-26] MEDS: oxyCODONE IR 5 MG TABLET PO PRN ×3 (03:10→12:15)
[2018-12-26] MEDS: HYDROmorphone 2 MG/1 ML VIAL IV PRN ×2 (04:09→10:23)
[2018-12-26] MEDS: LEVOTHYROXINE 100 MCG TABLET PO SCH (06:07)
[2018-12-26] MEDS: FUROSEMIDE 20 MG/2 ML VIAL IV SCH (09:02)
[2018-12-26] MEDS: fentaNYL 100 MCG/HR PATCH TRANSDERM SCH (09:02)
[2018-12-26] MEDS: ENOXAPARIN 40 MG/0.4 ML SYRINGE SUBCUT SCH (09:03)
[2018-12-26] MEDS: POLYETHYLENE GLYCOL POWDER 17 GM PACK PO SCH (09:03)
[2018-12-26] MEDS: LUBIPROSTONE 24 MCG CAPSULE PO SCH (09:03)
[2018-12-26] MEDS: MULTIVITAMIN (BEROCCA) TABLET PO SCH (09:04)
[2018-12-26] MEDS: ASCORBIC ACID 500 MG TABLET PO SCH (09:04)
[2018-12-26] MEDS: valACYclovir 500 MG TABLET PO SCH (09:04)
[2018-12-26] MEDS: PANTOPRAZOLE 40 MG TABLET PO SCH (09:05)
[2018-12-26] MEDS: DOCUSATE SODIUM 100 MG CAPSULE PO SCH (09:05)
[2018-12-26] MEDS: VITAMIN E 400 UNIT CAPSULE PO SCH (09:05)
[2018-12-26] MEDS: FERROUS SULFATE 325 MG TABLET PO SCH (09:05)
[2018-12-26] MEDS: GABAPENTIN 600 MG TABLET PO SCH (09:05)
[2018-12-26] MEDS: DIAZEPAM 5 MG TABLET PO SCH (09:05)
[2018-12-26] MEDS: LACTULOSE 20 GM/30 ML UDCUP PO SCH (09:07)
[2018-12-26] MEDS: POTASSIUM CHLORIDE 20 MEQ TABLET PO SCH (10:22)
[2018-12-26] MEDS ORDERED: ALTEPLASE 2 MG VIAL ONE (10:39)
[2018-12-26 11:40] VITALS: BP 133/70
== END 2018-12-26 15:29 | disposition home health service (06) | DRG 720 ==
LOC: EDUNIT# → EDBD → N.EDINP 17:45 → N.ED 17:45 → N.EDINP 23:18 → N.2E 23:29 → SUATTDRO 12-15 15:15
PROVIDERS: ADMIT Hospitalist; ATTEND Hospitalist

== ENCOUNTER 2018-12-26 22:19 | Inpatient (IN) ==
[2018-12-26 23:29] LABS: Albumin 2.8 G/DL (3.4-5.0); Bilirubin,Total 0.8 MG/DL (0.2-1.0); Calcium 9.3 MG/DL (8.5-10.1); Osmolality,Calculated 265.7 MOS/KG (273-304); Potassium 4.3 MMOL/L (3.5-5.1); Total Protein 8.7 G/DL (6.4-8.3)
[2018-12-26 23:31] LABS: Basophils % 0.1 % (0.0-0.8); Hematocrit 33.2 VOL% (35.7-47.0); Hemoglobin 10.7 GM/DL (12.0-16.0); Immature Granulocytes % 1.2 %; Immature Granulocytes Absolute 0.29 #; Lymphocytes # 1.1 10*3/uL (1.4-4.0); Lymphocytes % 4.5 % (21.3-54.2); Mean Corpuscular HGB Conc 32.2 GM/DL (32-36); Mean Corpuscular Hemoglobin 32 PG (27-34); Mean Corpuscular Volume 98.2 FL (87-102); Monocytes # 0.6 10*3/uL (0.11-0.8); Monocytes % 2.6 % (1.7-12.7); Neutrophils # 22.3 10*3/uL (1.4-7.4); Neutrophils % 91.6 % (38.7-73.9); Red Blood Count 3.38 MC/CUMM (3.8-5.5); Red Cell Distribution Width 13.8 % (9.3-17.3)
[2018-12-26 23:33] LABS: Platelet Count 629 T/CUMM (130-400); White Blood Count 24.3 T/CUMM (4-12)
[2018-12-27] MEDS ORDERED: ONDANSETRON 4 MG/2 ML VIAL IV PRN (01:31)
[2018-12-27] MEDS ORDERED: BISACODYL 5 MG TABLET PO PRN (01:31)
[2018-12-27] MEDS ORDERED: NICOTINE 21 MG/24 HR PATCH TRANSDERM PRN (01:31)
[2018-12-27 01:45] LABS: ABG HCO3 32.5 MMOL/L (20-26); ABG Oxygen Saturation 95.6 % (95-100); ABG PCO2 45.2 MM HG (35-48); ABG PH 7.475 (7.35-7.45); ABG PO2 85.3 MM HG (80-95); ABG TCO2 33.9 MMOL/L (23-27); Allen Test Positive
[2018-12-27] MEDS: SODIUM CHLORIDE 0.9% 1,000 ML IV SCH ×3 (03:09→18:23)
[2018-12-27 03:16] LABS: Anisocytosis Slight; Band Neutrophils 5 % (0-10); Lymphocytes 5 % (20-55); Macrocytosis Slight; Platelet Estimate Increased; Segmented Neutrophils 87 % (50-85); Total Cells Counted 100
[2018-12-27] MEDS: VANCOMYCIN INJ 2,000 MG in SODIUM CHLORIDE 0.9% 500 ML IV SCH ×2 (04:23→18:37)
[2018-12-27] MEDS: PANTOPRAZOLE 40 MG TABLET PO SCH (08:59)
[2018-12-27] MEDS: ACETAMINOPHEN 325 MG TABLET PO PRN ×4 (09:02→22:43)
[2018-12-28] MEDS: SODIUM CHLORIDE 0.9% 1,000 ML IV SCH ×3 (02:28→17:44)
[2018-12-28] MEDS: ACETAMINOPHEN 325 MG TABLET PO PRN ×3 (02:38→23:29)
[2018-12-28] MEDS: VANCOMYCIN INJ 2,000 MG in SODIUM CHLORIDE 0.9% 500 ML IV SCH ×2 (06:29→17:58)
[2018-12-28 09:23] LABS: Basophils % 0.3 % (0.0-0.8); Eosinophils # 0.1 10*3/uL (0.0-0.87); Eosinophils % 1.1 % (0.00-10.9); Hematocrit 28.6 VOL% (35.7-47.0); Hemoglobin 8.8 GM/DL (12.0-16.0); Immature Granulocytes % 0.7 %; Immature Granulocytes Absolute 0.06 #; Lymphocytes # 1.1 10*3/uL (1.4-4.0); Lymphocytes % 11.5 % (21.3-54.2); Mean Corpuscular HGB Conc 30.8 GM/DL (32-36); Mean Corpuscular Hemoglobin 31 PG (27-34); Mean Corpuscular Volume 101.4 FL (87-102); Monocytes # 0.4 10*3/uL (0.11-0.8); Monocytes % 4.3 % (1.7-12.7); Neutrophils # 7.5 10*3/uL (1.4-7.4); Neutrophils % 82.1 % (38.7-73.9); Platelet Count 583 T/CUMM (130-400); Red Blood Count 2.82 MC/CUMM (3.8-5.5); Red Cell Distribution Width 13.6 % (9.3-17.3); White Blood Count 9.1 T/CUMM (4-12)
[2018-12-28] MEDS: oxyCODONE IR 5 MG TABLET PO PRN ×2 (09:55→17:58)
[2018-12-28] MEDS: PANTOPRAZOLE 40 MG TABLET PO SCH (09:57)
[2018-12-29] MEDS: SODIUM CHLORIDE 0.9% 1,000 ML IV SCH ×4 (00:10→17:12)
[2018-12-29] MEDS: oxyCODONE IR 5 MG TABLET PO PRN ×3 (02:53→22:22)
[2018-12-29] MEDS: VANCOMYCIN INJ 2,000 MG in SODIUM CHLORIDE 0.9% 500 ML IV SCH ×2 (06:10→17:11)
[2018-12-29] MEDS: PANTOPRAZOLE 40 MG TABLET PO SCH (08:08)
[2018-12-29] MEDS: ACETAMINOPHEN 325 MG TABLET PO PRN ×2 (08:11→20:13)
[2018-12-29] MEDS: GABAPENTIN 600 MG TABLET PO SCH (20:13)
[2018-12-29] MEDS: LUBIPROSTONE 24 MCG CAPSULE PO SCH (20:13)
[2018-12-29] MEDS: DOCUSATE SODIUM 100 MG CAPSULE PO SCH (20:13)
[2018-12-30] MEDS: ACETAMINOPHEN 325 MG TABLET PO PRN ×3 (03:48→18:12)
[2018-12-30] MEDS: SODIUM CHLORIDE 0.9% 1,000 ML IV SCH ×2 (03:50→18:08)
[2018-12-30] MEDS: VANCOMYCIN INJ 2,000 MG in SODIUM CHLORIDE 0.9% 500 ML IV SCH (06:21)
[2018-12-30] MEDS: LEVOTHYROXINE 100 MCG TABLET PO SCH (06:22)
[2018-12-30] MEDS: oxyCODONE IR 5 MG TABLET PO PRN ×3 (06:23→21:40)
[2018-12-30] MEDS: LUBIPROSTONE 24 MCG CAPSULE PO SCH ×2 (09:27→20:59)
[2018-12-30] MEDS: DOCUSATE SODIUM 100 MG CAPSULE PO SCH ×2 (09:29→20:59)
[2018-12-30] MEDS: GABAPENTIN 600 MG TABLET PO SCH ×2 (09:31→21:00)
[2018-12-30] MEDS: PANTOPRAZOLE 40 MG TABLET PO SCH (09:31)
[2018-12-30] MEDS: valACYclovir 500 MG TABLET PO SCH (09:31)
[2018-12-30 09:37] LABS: Basophils % 0.5 % (0.0-0.8); Eosinophils # 0.1 10*3/uL (0.0-0.87); Eosinophils % 0.7 % (0.00-10.9); Hemoglobin 8.5 GM/DL (12.0-16.0); Immature Granulocytes % 0.4 %; Immature Granulocytes Absolute 0.03 #; Lymphocytes # 1.4 10*3/uL (1.4-4.0); Mean Corpuscular HGB Conc 31.5 GM/DL (32-36); Mean Corpuscular Hemoglobin 32 PG (27-34); Mean Corpuscular Volume 101.9 FL (87-102); Mean Platelet Volume 8.4 FL (9.6-12.0); Monocytes # 0.4 10*3/uL (0.11-0.8); Monocytes % 5.9 % (1.7-12.7); Neutrophils # 5.6 10*3/uL (1.4-7.4); Neutrophils % 74.5 % (38.7-73.9); Platelet Count 512 T/CUMM (130-400); Red Blood Count 2.65 MC/CUMM (3.8-5.5); Red Cell Distribution Width 13.5 % (9.3-17.3); White Blood Count 7.5 T/CUMM (4-12)
[2018-12-30 09:45] LABS: ABG Base Excess 4.3 MMOL/L (-2.5-2.5); ABG HCO3 28.8 MMOL/L (20-26); ABG Oxygen Saturation 97.4 % (95-100); ABG PH 7.444 (7.35-7.45); ABG TCO2 30.1 MMOL/L (23-27)
[2018-12-30 09:54] LABS: Albumin 2.1 G/DL (3.4-5.0); Bilirubin,Direct 0.15 MG/DL (0.0-0.20); Bilirubin,Indirect 0.3 MG/DL (0.0-1.0); Bilirubin,Total 0.4 MG/DL (0.2-1.0); Calcium 8.7 MG/DL (8.5-10.1); Osmolality,Calculated 274.5 MOS/KG (273-304); Potassium 3.7 MMOL/L (3.5-5.1); Total Protein 6.9 G/DL (6.4-8.3)
[2018-12-30] MEDS: FERROUS SULFATE 325 MG TABLET PO SCH (21:00)
[2018-12-30] MEDS: CILOSTAZOL 50 MG TABLET PO SCH (21:00)
[2018-12-30] MEDS ORDERED: SENNA 8.6 MG TABLET PO SCH (21:00)
[2018-12-30] MEDS: VANCOMYCIN INJ 1,500 MG in SODIUM CHLORIDE 0.9% 500 ML IV SCH (21:00)
[2018-12-30] MEDS: POLYETHYLENE GLYCOL POWDER 17 GM PACK PO SCH (21:05)
[2018-12-31] MEDS: SODIUM CHLORIDE 0.9% 1,000 ML IV SCH ×3 (02:46→10:05)
[2018-12-31] MEDS: ACETAMINOPHEN 325 MG TABLET PO PRN (02:47)
[2018-12-31] MEDS ORDERED: NAPROXEN 250 MG TABLET PO PRN (04:01)
[2018-12-31 05:08] LABS: Calcium 8.8 MG/DL (8.5-10.1); Osmolality,Calculated 277.3 MOS/KG (273-304); Potassium 3.5 MMOL/L (3.5-5.1)
[2018-12-31] MEDS: oxyCODONE IR 5 MG TABLET PO PRN (05:24)
[2018-12-31] MEDS: LEVOTHYROXINE 100 MCG TABLET PO SCH (06:45)
[2018-12-31] MEDS ORDERED: oxyCODONE IR 5 MG TABLET PO ONE (09:09)
[2018-12-31] MEDS: FERROUS SULFATE 325 MG TABLET PO SCH (09:29)
[2018-12-31] MEDS: CILOSTAZOL 50 MG TABLET PO SCH (09:29)
[2018-12-31] MEDS: GABAPENTIN 600 MG TABLET PO SCH (09:29)
[2018-12-31] MEDS: valACYclovir 500 MG TABLET PO SCH (09:29)
[2018-12-31] MEDS: LUBIPROSTONE 24 MCG CAPSULE PO SCH (09:29)
[2018-12-31] MEDS: DOCUSATE SODIUM 100 MG CAPSULE PO SCH (09:29)
[2018-12-31] MEDS: PANTOPRAZOLE 40 MG TABLET PO SCH (09:29)
[2018-12-31] MEDS: VANCOMYCIN INJ 1,500 MG in SODIUM CHLORIDE 0.9% 500 ML IV SCH (09:30)
[2018-12-31] MEDS: POLYETHYLENE GLYCOL POWDER 17 GM PACK PO SCH (09:30)
[2018-12-31] MEDS ORDERED: fentaNYL 50 MCG/HR PATCH TRANSDERM SCH (09:30)
[2018-12-31 10:13] VITALS: BP 161/85
== END 2018-12-31 11:20 | disposition hospice, home (50) | DRG 49 ==
LOC: N.ED 22:19 → SUATTDRO 12-27 01:31 → N.5E 12-27 02:05
PROVIDERS: ADMIT Hospitalist; ATTEND Internal Medicine

== ENCOUNTER 2019-04-24 10:30 | Inpatient (IN) ==
[2019-04-24] MEDS ORDERED: ASPIRIN 325 MG TABLET PO STA (10:58)
[2019-04-24 11:22] LABS: Basophils # 0.1 10*3/uL (0.0-0.2); Basophils % 0.5 % (0.0-0.8); Eosinophils % 0.2 % (0.00-10.9); Hematocrit 28.4 VOL% (35.7-47.0); Hemoglobin 8.8 GM/DL (12.0-16.0); Immature Granulocytes % 0.6 %; Immature Granulocytes Absolute 0.06 #; Lymphocytes # 1.3 10*3/uL (1.4-4.0); Lymphocytes % 11.6 % (21.3-54.2); Mean Corpuscular Volume 90.4 FL (87-102); Monocytes % 7.2 % (1.7-12.7); Neutrophils % 79.9 % (38.7-73.9); Platelet Count 283 T/CUMM (130-400); Red Blood Count 3.14 MC/CUMM (3.8-5.5); Red Cell Distribution Width 15.9 % (9.3-17.3); White Blood Count 10.8 T/CUMM (4-12)
[2019-04-24 11:48] LABS: Calcium 8.9 MG/DL (8.5-10.1); Osmolality,Calculated 271.5 MOS/KG (273-304)
[2019-04-24] MEDS ORDERED: SODIUM CHLORIDE 0.9% 500 ML IV STA ×2 (12:07→15:25)
[2019-04-24 12:39] LABS: Apearance,Urine CLOUDY (Clear); Bacteria,Urine Occasional /HPF (Few); Bilirubin,Urine Negative (Negative); Blood, Urine Moderate mg/dL (Negative); Glucose,Urine (UA) Negative (Negative); Hyaline Casts,Urine 52 /LPF (0-3); Ketones,Urine Negative (Negative); Mucus,Urine Few /LPF (Occasional); Nitrite,Urine Negative (Negative); Protein,Urine 30 MG/DL; RBC,Urine 9 /HPF (0-4); Squamous Epithelial Cell,Urine Occasional /HPF (0-10); Urine Color Amber (Yellow); Urine Specific Gravity 1.014 (1.001-1.035); Urine Urobilinogen < 2.0 EU/DL (0.2-1.0); WBC,Urine 20 /HPF (0-6)
[2019-04-24] MEDS ORDERED: ONDANSETRON 4 MG/2 ML VIAL IV PRN (17:49)
[2019-04-24] MEDS ORDERED: MAGNESIUM SULF RIDER 2 GM in PREMIX 1 EACH IV PRN (17:58)
[2019-04-24] MEDS ORDERED: MAGNESIUM SULF RIDER 4 GM in PREMIX 1 EACH IV PRN (17:58)
[2019-04-24] MEDS: VANCOMYCIN INJ 1,750 MG in SODIUM CHLORIDE 0.9% 500 ML IV SCH (21:08)
[2019-04-24] MEDS: SODIUM CHLORIDE 0.9% 1,000 ML IV SCH (21:08)
[2019-04-24] MEDS: GABAPENTIN 600 MG TABLET PO SCH (21:09)
[2019-04-24] MEDS: DULoxetine 30 MG CAPSULE PO SCH (21:09)
[2019-04-24] MEDS: QUEtiapine 25 MG TABLET PO SCH (21:09)
[2019-04-24] MEDS: oxyCODONE IR 5 MG TABLET PO PRN (22:30)
[2019-04-24] MEDS: chlorproMAZINE 25 MG TABLET PO SCH (22:30)
[2019-04-25 05:53] LABS: Basophils % 0.2 % (0.0-0.8); Eosinophils # 0.1 10*3/uL (0.0-0.87); Eosinophils % 1.3 % (0.00-10.9); Hematocrit 24.8 VOL% (35.7-47.0); Hemoglobin 7.6 GM/DL (12.0-16.0); Immature Granulocytes % 0.3 %; Immature Granulocytes Absolute 0.02 #; Lymphocytes % 16.6 % (21.3-54.2); Mean Corpuscular HGB Conc 30.6 GM/DL (32-36); Mean Corpuscular Volume 90.8 FL (87-102); Mean Platelet Volume 9.8 FL (9.6-12.0); Monocytes % 7.1 % (1.7-12.7); Neutrophils % 74.5 % (38.7-73.9); Platelet Count 267 T/CUMM (130-400); Red Blood Count 2.73 MC/CUMM (3.8-5.5); Red Cell Distribution Width 15.9 % (9.3-17.3); White Blood Count 6.2 T/CUMM (4-12)
[2019-04-25 06:17] LABS: Calcium 8.5 MG/DL (8.5-10.1); Osmolality,Calculated 286.4 MOS/KG (273-304); Thyroid Stimulating Hormone 1.02 uIU/ml (0.358-3.74); VLDL CHOLESTEROL 28.8 MG/DL
[2019-04-25] MEDS: oxyCODONE IR 5 MG TABLET PO PRN ×3 (06:29→21:03)
[2019-04-25] MEDS: LEVOTHYROXINE 100 MCG TABLET PO SCH (06:30)
[2019-04-25 08:54] LABS: % Iron Saturation 7.6 % (18-50); Ferritin 206.5 ng/ml (8-252)
[2019-04-25] MEDS ORDERED: LISINOPRIL 20 MG TABLET PO SCH (09:00)
[2019-04-25 09:03] LABS: Hematocrit 26.2 VOL% (35.7-47.0); Hemoglobin 8.1 GM/DL (12.0-16.0)
[2019-04-25] MEDS: ACETAMINOPHEN 325 MG TABLET PO PRN ×2 (09:10→18:10)
[2019-04-25] MEDS: QUEtiapine 25 MG TABLET PO SCH ×2 (09:10→21:04)
[2019-04-25] MEDS: GABAPENTIN 600 MG TABLET PO SCH ×2 (09:10→21:03)
[2019-04-25] MEDS: FLUCONAZOLE 100 MG TABLET PO SCH (09:10)
[2019-04-25] MEDS: PANTOPRAZOLE 40 MG TABLET PO SCH (09:10)
[2019-04-25] MEDS: valACYclovir 500 MG TABLET PO SCH (09:10)
[2019-04-25] MEDS: ENOXAPARIN 40 MG/0.4 ML SYRINGE SUBCUT SCH (09:11)
[2019-04-25 12:19] LABS: Folate 14.2 NG/ML (5.4-24.0)
[2019-04-25] MEDS: SODIUM CHLORIDE 0.9% 1,000 ML IV SCH (16:17)
[2019-04-25] MEDS: VANCOMYCIN INJ 1,750 MG in SODIUM CHLORIDE 0.9% 500 ML IV SCH (18:49)
[2019-04-25] MEDS: DULoxetine 30 MG CAPSULE PO SCH (21:03)
[2019-04-25] MEDS: chlorproMAZINE 25 MG TABLET PO SCH (21:04)
[2019-04-26 05:30] LABS: Basophils % 0.3 % (0.0-0.8); Eosinophils # 0.1 10*3/uL (0.0-0.87); Eosinophils % 1.3 % (0.00-10.9); Hematocrit 26.5 VOL% (35.7-47.0); Immature Granulocytes % 0.4 %; Immature Granulocytes Absolute 0.03 #; Lymphocytes # 1.3 10*3/uL (1.4-4.0); Lymphocytes % 16.9 % (21.3-54.2); Mean Corpuscular HGB Conc 30.2 GM/DL (32-36); Mean Corpuscular Volume 91.4 FL (87-102); Mean Platelet Volume 9.7 FL (9.6-12.0); Neutrophils % 75.1 % (38.7-73.9); Platelet Count 320 T/CUMM (130-400); Red Cell Distribution Width 15.9 % (9.3-17.3); White Blood Count 7.9 T/CUMM (4-12)
[2019-04-26 06:24] LABS: Calcium 9.5 MG/DL (8.5-10.1); Osmolality,Calculated 277.4 MOS/KG (273-304)
[2019-04-26] MEDS: valACYclovir 500 MG TABLET PO SCH (08:26)
[2019-04-26] MEDS: GABAPENTIN 600 MG TABLET PO SCH ×2 (08:26→21:06)
[2019-04-26] MEDS: ENOXAPARIN 40 MG/0.4 ML SYRINGE SUBCUT SCH (08:27)
[2019-04-26] MEDS: FLUCONAZOLE 100 MG TABLET PO SCH (08:27)
[2019-04-26] MEDS: QUEtiapine 25 MG TABLET PO SCH ×2 (08:27→21:06)
[2019-04-26] MEDS: PANTOPRAZOLE 40 MG TABLET PO SCH (08:27)
[2019-04-26] MEDS: LEVOTHYROXINE 100 MCG TABLET PO SCH (08:27)
[2019-04-26] MEDS: FUROSEMIDE 40 MG/4 ML VIAL IV SCH (08:32)
[2019-04-26] MEDS: oxyCODONE IR 5 MG TABLET PO PRN ×3 (08:41→21:14)
[2019-04-26] MEDS: ACETAMINOPHEN 325 MG TABLET PO PRN (17:56)
[2019-04-26] MEDS: VANCOMYCIN INJ 1,750 MG in SODIUM CHLORIDE 0.9% 500 ML IV SCH (18:03)
[2019-04-26] MEDS: DULoxetine 30 MG CAPSULE PO SCH (21:06)
[2019-04-26] MEDS: chlorproMAZINE 25 MG TABLET PO SCH (21:13)
[2019-04-27 04:55] LABS: Basophils % 0.2 % (0.0-0.8); Eosinophils # 0.1 10*3/uL (0.0-0.87); Eosinophils % 1.4 % (0.00-10.9); Hematocrit 26.4 VOL% (35.7-47.0); Immature Granulocytes % 0.5 %; Immature Granulocytes Absolute 0.04 #; Lymphocytes # 1.3 10*3/uL (1.4-4.0); Lymphocytes % 16.4 % (21.3-54.2); Mean Corpuscular HGB Conc 30.3 GM/DL (32-36); Mean Corpuscular Volume 90.4 FL (87-102); Mean Platelet Volume 9.4 FL (9.6-12.0); Monocytes % 7.1 % (1.7-12.7); Neutrophils % 74.4 % (38.7-73.9); Platelet Count 335 T/CUMM (130-400); Red Blood Count 2.92 MC/CUMM (3.8-5.5); Red Cell Distribution Width 15.9 % (9.3-17.3)
[2019-04-27 05:20] LABS: Calcium 9.6 MG/DL (8.5-10.1); Osmolality,Calculated 280.1 MOS/KG (273-304)
[2019-04-27] MEDS: oxyCODONE IR 5 MG TABLET PO PRN ×3 (05:59→22:38)
[2019-04-27] MEDS: LEVOTHYROXINE 100 MCG TABLET PO SCH (06:00)
[2019-04-27] MEDS: GABAPENTIN 600 MG TABLET PO SCH ×2 (08:49→22:38)
[2019-04-27] MEDS: QUEtiapine 25 MG TABLET PO SCH ×2 (08:49→22:37)
[2019-04-27] MEDS: ENOXAPARIN 40 MG/0.4 ML SYRINGE SUBCUT SCH (08:49)
[2019-04-27] MEDS: FUROSEMIDE 40 MG/4 ML VIAL IV SCH (08:49)
[2019-04-27] MEDS: FLUCONAZOLE 100 MG TABLET PO SCH (08:49)
[2019-04-27] MEDS: PANTOPRAZOLE 40 MG TABLET PO SCH (08:49)
[2019-04-27] MEDS: valACYclovir 500 MG TABLET PO SCH (08:49)
[2019-04-27 10:53] LABS: Lymphocytes,Synovial Fluid 7 %; Neutrophils,Synovial Fluid 93 %
[2019-04-27] MEDS: VANCOMYCIN INJ 1,500 MG in SODIUM CHLORIDE 0.9% 500 ML IV SCH ×2 (14:14→22:48)
[2019-04-27] MEDS ORDERED: IRON SUCROSE 300 MG in SODIUM CHLORIDE 0.9% 100 ML IV ONE (15:09)
[2019-04-27] MEDS: ACETAMINOPHEN 325 MG TABLET PO PRN (16:04)
[2019-04-27] MEDS: chlorproMAZINE 25 MG TABLET PO SCH (22:35)
[2019-04-27] MEDS: DULoxetine 30 MG CAPSULE PO SCH (22:37)
[2019-04-28] MEDS: LEVOTHYROXINE 100 MCG TABLET PO SCH (06:11)
[2019-04-28] MEDS: FUROSEMIDE 40 MG/4 ML VIAL IV SCH (09:00)
[2019-04-28] MEDS: oxyCODONE IR 5 MG TABLET PO PRN ×2 (09:01→16:16)
[2019-04-28] MEDS: ENOXAPARIN 40 MG/0.4 ML SYRINGE SUBCUT SCH (09:01)
[2019-04-28] MEDS: FLUCONAZOLE 100 MG TABLET PO SCH (09:02)
[2019-04-28] MEDS: valACYclovir 500 MG TABLET PO SCH (09:02)
[2019-04-28] MEDS: QUEtiapine 25 MG TABLET PO SCH ×2 (09:02→20:20)
[2019-04-28] MEDS: PANTOPRAZOLE 40 MG TABLET PO SCH (09:02)
[2019-04-28] MEDS: GABAPENTIN 600 MG TABLET PO SCH ×2 (09:02→20:22)
[2019-04-28 09:24] LABS: Basophils % 0.1 % (0.0-0.8); Eosinophils # 0.1 10*3/uL (0.0-0.87); Eosinophils % 0.9 % (0.00-10.9); Hemoglobin 9.4 GM/DL (12.0-16.0); Immature Granulocytes % 0.4 %; Immature Granulocytes Absolute 0.03 #; Lymphocytes # 1.3 10*3/uL (1.4-4.0); Lymphocytes % 16.8 % (21.3-54.2); Mean Corpuscular HGB Conc 31.3 GM/DL (32-36); Mean Corpuscular Volume 88.8 FL (87-102); Mean Platelet Volume 9.4 FL (9.6-12.0); Monocytes % 4.7 % (1.7-12.7); Neutrophils % 77.1 % (38.7-73.9); Platelet Count 421 T/CUMM (130-400); Red Blood Count 3.38 MC/CUMM (3.8-5.5); Red Cell Distribution Width 15.9 % (9.3-17.3); White Blood Count 7.7 T/CUMM (4-12)
[2019-04-28 10:00] LABS: Alanine Aminotransferase 36 U/L (13-56); Albumin 2.6 G/DL (3.4-5.0); Alkaline Phosphatase 153 U/L (45-117); Aspartate Amino Transferase 31 U/L (0-37); Bilirubin,Total < 0.39 MG/DL (0.2-1.0); Blood Urea Nitrogen 5 MG/DL (7-18); Calcium 9.4 MG/DL (8.5-10.1); Glucose 131 MG/DL (74-106); Osmolality,Calculated 277.4 MOS/KG (273-304); Total Protein 7.9 G/DL (6.4-8.3)
[2019-04-28] MEDS: VANCOMYCIN INJ 1,500 MG in SODIUM CHLORIDE 0.9% 500 ML IV SCH ×2 (11:48→23:09)
[2019-04-28] MEDS: METHOCARBAMOL 500 MG TABLET PO PRN ×2 (11:56→21:07)
[2019-04-28] MEDS: ACETAMINOPHEN 325 MG TABLET PO PRN (20:18)
[2019-04-28] MEDS: chlorproMAZINE 25 MG TABLET PO SCH (20:21)
[2019-04-28] MEDS: DULoxetine 30 MG CAPSULE PO SCH (20:21)
[2019-04-29] MEDS: oxyCODONE IR 5 MG TABLET PO PRN ×3 (02:44→21:18)
[2019-04-29 05:06] LABS: Basophils % 0.2 % (0.0-0.8); Eosinophils # 0.1 10*3/uL (0.0-0.87); Eosinophils % 1.4 % (0.00-10.9); Hematocrit 30.3 VOL% (35.7-47.0); Hemoglobin 9.1 GM/DL (12.0-16.0); Immature Granulocytes % 0.4 %; Immature Granulocytes Absolute 0.04 #; Lymphocytes # 1.6 10*3/uL (1.4-4.0); Lymphocytes % 17.5 % (21.3-54.2); Monocytes % 5.8 % (1.7-12.7); Neutrophils % 74.7 % (38.7-73.9); Platelet Count 446 T/CUMM (130-400); Red Blood Count 3.33 MC/CUMM (3.8-5.5); Red Cell Distribution Width 15.8 % (9.3-17.3); White Blood Count 9.2 T/CUMM (4-12)
[2019-04-29 05:39] LABS: Albumin 2.8 G/DL (3.4-5.0); Bilirubin,Total 0.6 MG/DL (0.2-1.0); Calcium 9.6 MG/DL (8.5-10.1); Osmolality,Calculated 280.1 MOS/KG (273-304); Total Protein 7.9 G/DL (6.4-8.3)
[2019-04-29] MEDS: LEVOTHYROXINE 100 MCG TABLET PO SCH (06:11)
[2019-04-29] MEDS: GABAPENTIN 600 MG TABLET PO SCH ×2 (09:30→21:16)
[2019-04-29] MEDS: valACYclovir 500 MG TABLET PO SCH (09:30)
[2019-04-29] MEDS: QUEtiapine 25 MG TABLET PO SCH ×2 (09:30→21:17)
[2019-04-29] MEDS: FLUCONAZOLE 100 MG TABLET PO SCH (09:30)
[2019-04-29] MEDS: ENOXAPARIN 40 MG/0.4 ML SYRINGE SUBCUT SCH (09:30)
[2019-04-29] MEDS: PANTOPRAZOLE 40 MG TABLET PO SCH (09:31)
[2019-04-29] MEDS: FUROSEMIDE 40 MG/4 ML VIAL IV SCH (10:25)
[2019-04-29] MEDS: VANCOMYCIN INJ 1,500 MG in SODIUM CHLORIDE 0.9% 500 ML IV SCH ×2 (11:55→22:49)
[2019-04-29] MEDS: ACETAMINOPHEN 325 MG TABLET PO PRN (12:09)
[2019-04-29] MEDS ORDERED: GENTAMICIN 80 MG/2 ML VIAL ONE ×2 (16:28→17:10)
[2019-04-29] MEDS ORDERED: fentaNYL 100 MCG/2 ML VIAL ONE (17:04)
[2019-04-29] MEDS ORDERED: ONDANSETRON 4 MG/2 ML VIAL IV PRN (17:57)
[2019-04-29] MEDS: HYDROmorphone 2 MG/1 ML VIAL IV PRN ×4 (18:05→18:35)
[2019-04-29] MEDS ORDERED: ROCURONIUM 100 MG/10 ML VIAL IV ONE (18:39)
[2019-04-29] MEDS ORDERED: ONDANSETRON 4 MG/2 ML VIAL ONE (18:39)
[2019-04-29] MEDS ORDERED: LACTATED RINGERS 1,000 ML IV ONE (18:39)
[2019-04-29] MEDS ORDERED: SEVOFLURANE 1 UNIT/15 MINUTE INH ONE (18:39)
[2019-04-29] MEDS ORDERED: PROPOFOL 200 MG/20 ML VIAL IV ONE (18:39)
[2019-04-29] MEDS ORDERED: SUCCINYLCHOLINE 200 MG/10 ML VIAL ONE (18:39)
[2019-04-29] MEDS: chlorproMAZINE 25 MG TABLET PO SCH (21:17)
[2019-04-29] MEDS: DULoxetine 30 MG CAPSULE PO SCH (21:17)
[2019-04-30] MEDS: METHOCARBAMOL 500 MG TABLET PO PRN ×2 (02:09→20:09)
[2019-04-30] MEDS: oxyCODONE IR 5 MG TABLET PO PRN ×4 (02:56→22:24)
[2019-04-30 05:19] LABS: Basophils % 0.2 % (0.0-0.8); Hematocrit 28.4 VOL% (35.7-47.0); Hemoglobin 8.7 GM/DL (12.0-16.0); Immature Granulocytes % 0.6 %; Immature Granulocytes Absolute 0.07 #; Lymphocytes # 1.7 10*3/uL (1.4-4.0); Lymphocytes % 13.8 % (21.3-54.2); Mean Corpuscular HGB Conc 30.6 GM/DL (32-36); Mean Corpuscular Volume 90.7 FL (87-102); Monocytes % 3.4 % (1.7-12.7); Platelet Count 466 T/CUMM (130-400); Red Blood Count 3.13 MC/CUMM (3.8-5.5); Red Cell Distribution Width 15.6 % (9.3-17.3)
[2019-04-30 06:00] LABS: Albumin 2.6 G/DL (3.4-5.0); Bilirubin,Total 0.9 MG/DL (0.2-1.0); Calcium 9.2 MG/DL (8.5-10.1); Osmolality,Calculated 275.5 MOS/KG (273-304); Total Protein 7.4 G/DL (6.4-8.3)
[2019-04-30] MEDS: LEVOTHYROXINE 100 MCG TABLET PO SCH (06:50)
[2019-04-30] MEDS: ENOXAPARIN 40 MG/0.4 ML SYRINGE SUBCUT SCH (09:04)
[2019-04-30] MEDS: PANTOPRAZOLE 40 MG TABLET PO SCH (09:04)
[2019-04-30] MEDS: GABAPENTIN 600 MG TABLET PO SCH ×2 (09:05→20:08)
[2019-04-30] MEDS: valACYclovir 500 MG TABLET PO SCH (09:05)
[2019-04-30] MEDS: QUEtiapine 25 MG TABLET PO SCH ×2 (09:05→20:09)
[2019-04-30] MEDS: FLUCONAZOLE 100 MG TABLET PO SCH (09:05)
[2019-04-30] MEDS: FUROSEMIDE 40 MG/4 ML VIAL IV SCH (09:06)
[2019-04-30] MEDS: VANCOMYCIN INJ 1,500 MG in SODIUM CHLORIDE 0.9% 500 ML IV SCH ×2 (11:12→22:24)
[2019-04-30] MEDS: ACETAMINOPHEN 325 MG TABLET PO PRN ×2 (13:55→20:09)
[2019-04-30] MEDS: DULoxetine 30 MG CAPSULE PO SCH (20:08)
[2019-04-30] MEDS: chlorproMAZINE 25 MG TABLET PO SCH (20:08)
[2019-05-01] MEDS: oxyCODONE IR 5 MG TABLET PO PRN ×3 (04:41→21:47)
[2019-05-01 05:45] LABS: Basophils % 0.2 % (0.0-0.8); Eosinophils # 0.1 10*3/uL (0.0-0.87); Eosinophils % 1.2 % (0.00-10.9); Hematocrit 28.7 VOL% (35.7-47.0); Hemoglobin 8.8 GM/DL (12.0-16.0); Immature Granulocytes % 0.5 %; Immature Granulocytes Absolute 0.04 #; Lymphocytes # 2.1 10*3/uL (1.4-4.0); Mean Corpuscular HGB Conc 30.7 GM/DL (32-36); Mean Corpuscular Volume 91.7 FL (87-102); Mean Platelet Volume 9.1 FL (9.6-12.0); Monocytes % 4.7 % (1.7-12.7); Neutrophils % 68.4 % (38.7-73.9); Platelet Count 468 T/CUMM (130-400); Red Blood Count 3.13 MC/CUMM (3.8-5.5); White Blood Count 8.3 T/CUMM (4-12)
[2019-05-01 06:05] LABS: Albumin 2.7 G/DL (3.4-5.0); Bilirubin,Total 0.4 MG/DL (0.2-1.0); Calcium 9.2 MG/DL (8.5-10.1); Osmolality,Calculated 278.3 MOS/KG (273-304); Total Protein 7.3 G/DL (6.4-8.3)
[2019-05-01] MEDS: LEVOTHYROXINE 100 MCG TABLET PO SCH (06:17)
[2019-05-01] MEDS: PANTOPRAZOLE 40 MG TABLET PO SCH (09:06)
[2019-05-01] MEDS: QUEtiapine 25 MG TABLET PO SCH ×2 (09:06→21:48)
[2019-05-01] MEDS: FLUCONAZOLE 100 MG TABLET PO SCH (09:06)
[2019-05-01] MEDS: ENOXAPARIN 40 MG/0.4 ML SYRINGE SUBCUT SCH (09:06)
[2019-05-01] MEDS: GABAPENTIN 600 MG TABLET PO SCH ×2 (09:06→21:48)
[2019-05-01] MEDS: valACYclovir 500 MG TABLET PO SCH (09:06)
[2019-05-01] MEDS: FUROSEMIDE 40 MG/4 ML VIAL IV SCH (09:07)
[2019-05-01] MEDS: VANCOMYCIN INJ 1,500 MG in SODIUM CHLORIDE 0.9% 500 ML IV SCH ×3 (11:10→23:39)
[2019-05-01] MEDS: chlorproMAZINE 25 MG TABLET PO SCH (21:47)
[2019-05-01] MEDS: DULoxetine 30 MG CAPSULE PO SCH (21:48)
[2019-05-02] MEDS: oxyCODONE IR 5 MG TABLET PO PRN (04:57)
[2019-05-02 05:30] LABS: Basophils % 0.2 % (0.0-0.8); Eosinophils # 0.2 10*3/uL (0.0-0.87); Eosinophils % 2.1 % (0.00-10.9); Hematocrit 29.3 VOL% (35.7-47.0); Hemoglobin 8.8 GM/DL (12.0-16.0); Immature Granulocytes % 0.5 %; Immature Granulocytes Absolute 0.06 #; Lymphocytes % 18.4 % (21.3-54.2); Mean Corpuscular Volume 92.1 FL (87-102); Monocytes % 4.7 % (1.7-12.7); Neutrophils % 74.1 % (38.7-73.9); Platelet Count 538 T/CUMM (130-400); Red Blood Count 3.18 MC/CUMM (3.8-5.5); White Blood Count 11.1 T/CUMM (4-12)
[2019-05-02 05:48] LABS: Alanine Aminotransferase 28 U/L (13-56); Albumin 2.9 G/DL (3.4-5.0); Alkaline Phosphatase 128 U/L (45-117); Aspartate Amino Transferase 19 U/L (0-37); Bilirubin,Total < 0.39 MG/DL (0.2-1.0); Blood Urea Nitrogen 10 MG/DL (7-18); Calcium 9.8 MG/DL (8.5-10.1); Glucose 91 MG/DL (74-106); Osmolality,Calculated 275.5 MOS/KG (273-304)
[2019-05-02] MEDS: LEVOTHYROXINE 100 MCG TABLET PO SCH (06:41)
[2019-05-02] MEDS: VANCOMYCIN INJ 1,500 MG in SODIUM CHLORIDE 0.9% 500 ML IV SCH (06:44)
[2019-05-02] MEDS: QUEtiapine 25 MG TABLET PO SCH ×2 (09:34→20:29)
[2019-05-02] MEDS: valACYclovir 500 MG TABLET PO SCH (09:34)
[2019-05-02] MEDS: GABAPENTIN 600 MG TABLET PO SCH ×2 (09:34→20:29)
[2019-05-02] MEDS: PANTOPRAZOLE 40 MG TABLET PO SCH (09:34)
[2019-05-02] MEDS: FLUCONAZOLE 100 MG TABLET PO SCH (09:34)
[2019-05-02] MEDS: ENOXAPARIN 40 MG/0.4 ML SYRINGE SUBCUT SCH (09:35)
[2019-05-02] MEDS: FUROSEMIDE 40 MG/4 ML VIAL IV SCH (09:35)
[2019-05-02] MEDS: ACETAMINOPHEN 325 MG TABLET PO PRN ×3 (09:49→20:29)
[2019-05-02] MEDS ORDERED: MAGNESIUM HYDROXIDE SUSP 30 ML UDCUP PO ONE (11:13)
[2019-05-02] MEDS ORDERED: BISACODYL 5 MG TABLET PO ONE (11:14)
[2019-05-02] MEDS: DULoxetine 30 MG CAPSULE PO SCH (20:28)
[2019-05-02] MEDS: chlorproMAZINE 25 MG TABLET PO SCH (20:29)
[2019-05-02] MEDS: DOCUSATE SODIUM 100 MG CAPSULE PO SCH (20:29)
[2019-05-03] MEDS: VANCOMYCIN INJ 1,500 MG in SODIUM CHLORIDE 0.9% 500 ML IV SCH ×2 (01:05→17:04)
[2019-05-03 05:07] LABS: Basophils % 0.3 % (0.0-0.8); Eosinophils # 0.2 10*3/uL (0.0-0.87); Eosinophils % 1.9 % (0.00-10.9); Hematocrit 32.3 VOL% (35.7-47.0); Hemoglobin 9.8 GM/DL (12.0-16.0); Immature Granulocytes % 0.5 %; Immature Granulocytes Absolute 0.06 #; Lymphocytes # 2.1 10*3/uL (1.4-4.0); Lymphocytes % 17.4 % (21.3-54.2); Mean Corpuscular HGB Conc 30.3 GM/DL (32-36); Mean Corpuscular Volume 92.6 FL (87-102); Neutrophils % 75.9 % (38.7-73.9); Platelet Count 614 T/CUMM (130-400); Red Blood Count 3.49 MC/CUMM (3.8-5.5); White Blood Count 11.8 T/CUMM (4-12)
[2019-05-03 05:32] LABS: Bilirubin,Total 0.6 MG/DL (0.2-1.0); Calcium 9.6 MG/DL (8.5-10.1); Osmolality,Calculated 275.5 MOS/KG (273-304); Total Protein 8.5 G/DL (6.4-8.3)
[2019-05-03] MEDS: LEVOTHYROXINE 100 MCG TABLET PO SCH (06:55)
[2019-05-03] MEDS: QUEtiapine 25 MG TABLET PO SCH ×2 (09:31→20:57)
[2019-05-03] MEDS: PANTOPRAZOLE 40 MG TABLET PO SCH (09:31)
[2019-05-03] MEDS: valACYclovir 500 MG TABLET PO SCH (09:31)
[2019-05-03] MEDS: GABAPENTIN 600 MG TABLET PO SCH ×2 (09:31→20:56)
[2019-05-03] MEDS: DOCUSATE SODIUM 100 MG CAPSULE PO SCH ×2 (09:31→20:57)
[2019-05-03] MEDS: ACETAMINOPHEN 325 MG TABLET PO PRN ×3 (09:31→20:57)
[2019-05-03] MEDS: FUROSEMIDE 40 MG/4 ML VIAL IV SCH (09:32)
[2019-05-03] MEDS: ENOXAPARIN 40 MG/0.4 ML SYRINGE SUBCUT SCH (09:34)
[2019-05-03] MEDS ORDERED: MAGNESIUM HYDROXIDE SUSP 30 ML UDCUP PO PRN (10:05)
[2019-05-03] MEDS: METHOCARBAMOL 500 MG TABLET PO PRN ×2 (11:13→21:11)
[2019-05-03] MEDS: POLYETHYLENE GLYCOL POWDER 17 GM PACK PO SCH (11:13)
[2019-05-03] MEDS: CETIRIZINE 10 MG TABLET PO SCH (20:56)
[2019-05-03] MEDS: DULoxetine 30 MG CAPSULE PO SCH (20:56)
[2019-05-03] MEDS: chlorproMAZINE 25 MG TABLET PO SCH (21:11)
[2019-05-04] MEDS: ACETAMINOPHEN 325 MG TABLET PO PRN ×4 (03:47→20:51)
[2019-05-04 05:52] LABS: Basophils % 0.2 % (0.0-0.8); Eosinophils # 0.1 10*3/uL (0.0-0.87); Eosinophils % 0.7 % (0.00-10.9); Hematocrit 33.7 VOL% (35.7-47.0); Hemoglobin 10.4 GM/DL (12.0-16.0); Immature Granulocytes % 0.7 %; Immature Granulocytes Absolute 0.09 #; Lymphocytes # 2.3 10*3/uL (1.4-4.0); Lymphocytes % 16.9 % (21.3-54.2); Mean Corpuscular HGB Conc 30.9 GM/DL (32-36); Mean Corpuscular Volume 90.8 FL (87-102); Mean Platelet Volume 9.1 FL (9.6-12.0); Monocytes % 3.9 % (1.7-12.7); Neutrophils % 77.6 % (38.7-73.9); Platelet Count 700 T/CUMM (130-400); Red Blood Count 3.71 MC/CUMM (3.8-5.5); Red Cell Distribution Width 16.2 % (9.3-17.3); White Blood Count 13.8 T/CUMM (4-12)
[2019-05-04 06:02] LABS: Albumin 3.3 G/DL (3.4-5.0); Bilirubin,Total 0.7 MG/DL (0.2-1.0); Osmolality,Calculated 273.8 MOS/KG (273-304); Total Protein 9.1 G/DL (6.4-8.3)
[2019-05-04] MEDS: LEVOTHYROXINE 100 MCG TABLET PO SCH (06:19)
[2019-05-04] MEDS ORDERED: oxyCODONE IR 5 MG TABLET PO PRN (08:55)
[2019-05-04] MEDS: POLYETHYLENE GLYCOL POWDER 17 GM PACK PO SCH (09:06)
[2019-05-04] MEDS: PANTOPRAZOLE 40 MG TABLET PO SCH (09:06)
[2019-05-04] MEDS: valACYclovir 500 MG TABLET PO SCH (09:06)
[2019-05-04] MEDS: ENOXAPARIN 40 MG/0.4 ML SYRINGE SUBCUT SCH (09:06)
[2019-05-04] MEDS: DOCUSATE SODIUM 100 MG CAPSULE PO SCH ×2 (09:07→20:50)
[2019-05-04] MEDS: GABAPENTIN 600 MG TABLET PO SCH ×2 (09:07→20:49)
[2019-05-04] MEDS: QUEtiapine 25 MG TABLET PO SCH ×2 (09:07→20:48)
[2019-05-04] MEDS: FUROSEMIDE 40 MG/4 ML VIAL IV SCH (09:08)
[2019-05-04] MEDS: METHOCARBAMOL 500 MG TABLET PO PRN ×2 (11:13→19:31)
[2019-05-04] MEDS: VANCOMYCIN INJ 1,000 MG in SODIUM CHLORIDE 0.9% 250 ML IV SCH ×2 (12:45→20:59)
[2019-05-04] MEDS: VANCOMYCIN INJ 1,500 MG in SODIUM CHLORIDE 0.9% 500 ML IV SCH (12:50)
[2019-05-04] MEDS: DULoxetine 30 MG CAPSULE PO SCH (20:49)
[2019-05-04] MEDS: CETIRIZINE 10 MG TABLET PO SCH (20:49)
[2019-05-04] MEDS: chlorproMAZINE 25 MG TABLET PO SCH (20:50)
[2019-05-05] MEDS: ACETAMINOPHEN 325 MG TABLET PO PRN ×2 (03:10→07:09)
[2019-05-05 04:07] LABS: Basophils % 0.3 % (0.0-0.8); Eosinophils # 0.1 10*3/uL (0.0-0.87); Eosinophils % 0.4 % (0.00-10.9); Hematocrit 34.5 VOL% (35.7-47.0); Hemoglobin 10.3 GM/DL (12.0-16.0); Immature Granulocytes % 0.3 %; Immature Granulocytes Absolute 0.04 #; Lymphocytes # 2.2 10*3/uL (1.4-4.0); Lymphocytes % 18.7 % (21.3-54.2); Mean Corpuscular HGB Conc 29.9 GM/DL (32-36); Mean Platelet Volume 8.9 FL (9.6-12.0); Neutrophils % 76.3 % (38.7-73.9); Platelet Count 639 T/CUMM (130-400); Red Blood Count 3.75 MC/CUMM (3.8-5.5); Red Cell Distribution Width 16.5 % (9.3-17.3); White Blood Count 11.9 T/CUMM (4-12)
[2019-05-05] MEDS: METHOCARBAMOL 500 MG TABLET PO PRN (04:09)
[2019-05-05] MEDS: LEVOTHYROXINE 100 MCG TABLET PO SCH (06:08)
[2019-05-05] MEDS: VANCOMYCIN INJ 1,000 MG in SODIUM CHLORIDE 0.9% 250 ML IV SCH (09:36)
[2019-05-05] MEDS: FUROSEMIDE 40 MG/4 ML VIAL IV SCH (09:45)
[2019-05-05] MEDS: QUEtiapine 25 MG TABLET PO SCH (09:46)
[2019-05-05] MEDS: POLYETHYLENE GLYCOL POWDER 17 GM PACK PO SCH (09:46)
[2019-05-05] MEDS: GABAPENTIN 600 MG TABLET PO SCH (09:46)
[2019-05-05] MEDS: valACYclovir 500 MG TABLET PO SCH (09:46)
[2019-05-05] MEDS: DOCUSATE SODIUM 100 MG CAPSULE PO SCH (09:47)
[2019-05-05] MEDS: PANTOPRAZOLE 40 MG TABLET PO SCH (09:47)
[2019-05-05] MEDS: ENOXAPARIN 40 MG/0.4 ML SYRINGE SUBCUT SCH (09:52)
[2019-05-05 11:44] VITALS: BP 127/73
== END 2019-05-05 15:20 | disposition swing bed (61) | DRG 349 ==
LOC: EDBD → EDUNIT# → N.ED 10:30 → N.EDINP 17:47 → SUATTDRO 17:47 → N.2E 18:33
PROVIDERS: ADMIT Internal Medicine; ATTEND Family Medicine

== ENCOUNTER 2019-06-20 08:51 | Inpatient (IN) ==
[2019-06-20] MEDS ORDERED: SODIUM CHLORIDE 0.9% 500 ML IV STA (09:46)
[2019-06-20 10:19] LABS: Basophils % 0.2 % (0.0-0.8); Eosinophils # 0.2 10*3/uL (0.0-0.87); Eosinophils % 1.4 % (0.00-10.9); Hematocrit 32.6 VOL% (35.7-47.0); Immature Granulocytes % 0.5 %; Immature Granulocytes Absolute 0.05 #; Lymphocytes # 1.2 10*3/uL (1.4-4.0); Lymphocytes % 11.4 % (21.3-54.2); Mean Corpuscular HGB Conc 30.7 GM/DL (32-36); Mean Corpuscular Volume 93.4 FL (87-102); Mean Platelet Volume 9.6 FL (9.6-12.0); Monocytes % 6.7 % (1.7-12.7); Neutrophils % 79.8 % (38.7-73.9); Platelet Count 286 T/CUMM (130-400); Red Blood Count 3.49 MC/CUMM (3.8-5.5); Red Cell Distribution Width 16.8 % (9.3-17.3); White Blood Count 10.6 T/CUMM (4-12)
[2019-06-20 10:38] LABS: Albumin 3.3 G/DL (3.4-5.0); Bilirubin,Total 0.5 MG/DL (0.2-1.0); Calcium 9.1 MG/DL (8.5-10.1); Osmolality,Calculated 272.7 MOS/KG (273-304); Total Protein 7.6 G/DL (6.4-8.3)
[2019-06-20] MEDS ORDERED: KETOROLAC 30 MG/1 ML VIAL ONE (11:22)
[2019-06-20] MEDS ORDERED: KETOROLAC 30 MG/1 ML VIAL IV STA (11:22)
[2019-06-20] MEDS ORDERED: VANCOMYCIN INJ 1,500 MG in SODIUM CHLORIDE 0.9% 500 ML IV STA (11:39)
[2019-06-20] MEDS ORDERED: ONDANSETRON 4 MG/2 ML VIAL IV PRN (12:18)
[2019-06-20] MEDS ORDERED: METHOCARBAMOL 500 MG TABLET PO PRN (12:49)
[2019-06-20] MEDS ORDERED: INFLUENZA VIRUS VACCINE 0.5 ML SYRINGE IM ONE (14:38)
[2019-06-20] MEDS ORDERED: MAGNESIUM SULF RIDER 2 GM in PREMIX 1 EACH IV PRN (15:03)
[2019-06-20] MEDS ORDERED: MAGNESIUM SULF RIDER 4 GM in PREMIX 1 EACH IV PRN (15:03)
[2019-06-20 15:46] LABS: Apearance,Urine CLEAR (Clear); Bilirubin,Urine Negative (Negative); Blood, Urine Negative (Negative); Glucose,Urine (UA) Negative (Negative); Ketones,Urine Negative (Negative); Mucus,Urine Occasional /LPF (Occasional); Nitrite,Urine Negative (Negative); Protein,Urine Negative; RBC,Urine 1 /HPF (0-4); Squamous Epithelial Cell,Urine Occasional /HPF (0-10); Urine Color Yellow (Yellow); Urine Specific Gravity 1.024 (1.001-1.035); Urine Urobilinogen < 2.0 EU/DL (0.2-1.0); WBC,Urine 1 /HPF (0-6)
[2019-06-20] MEDS: oxyCODONE IR 5 MG TABLET PO PRN ×2 (16:56→22:27)
[2019-06-20] MEDS: fentaNYL 50 MCG/HR PATCH TRANSDERM SCH (21:26)
[2019-06-20] MEDS: chlorproMAZINE 25 MG TABLET PO SCH (21:26)
[2019-06-20] MEDS: GABAPENTIN 600 MG TABLET PO SCH (21:26)
[2019-06-20] MEDS: QUEtiapine 25 MG TABLET PO SCH (21:26)
[2019-06-20] MEDS: CETIRIZINE 10 MG TABLET PO SCH (21:26)
[2019-06-20] MEDS: LURASIDONE 40 MG TABLET PO SCH (21:33)
[2019-06-20] MEDS: ENOXAPARIN 40 MG/0.4 ML SYRINGE SUBCUT SCH (21:34)
[2019-06-20] MEDS: DULoxetine 30 MG CAPSULE PO SCH (21:42)
[2019-06-21] MEDS: VANCOMYCIN INJ 1,750 MG in SODIUM CHLORIDE 0.9% 500 ML IV SCH ×4 (00:28→23:45)
[2019-06-21] MEDS: ACETAMINOPHEN 325 MG TABLET PO PRN (00:52)
[2019-06-21 04:58] LABS: Basophils % 0.2 % (0.0-0.8); Eosinophils # 0.2 10*3/uL (0.0-0.87); Eosinophils % 1.7 % (0.00-10.9); Hematocrit 26.2 VOL% (35.7-47.0); Hemoglobin 8.2 GM/DL (12.0-16.0); Immature Granulocytes % 0.4 %; Immature Granulocytes Absolute 0.04 #; Lymphocytes # 1.4 10*3/uL (1.4-4.0); Lymphocytes % 15.5 % (21.3-54.2); Mean Corpuscular HGB Conc 31.3 GM/DL (32-36); Mean Corpuscular Volume 92.9 FL (87-102); Mean Platelet Volume 9.5 FL (9.6-12.0); Monocytes % 6.9 % (1.7-12.7); Neutrophils % 75.3 % (38.7-73.9); Platelet Count 268 T/CUMM (130-400); Red Blood Count 2.82 MC/CUMM (3.8-5.5); Red Cell Distribution Width 16.6 % (9.3-17.3); White Blood Count 9.3 T/CUMM (4-12)
[2019-06-21 05:25] LABS: Calcium 8.6 MG/DL (8.5-10.1); Osmolality,Calculated 274.5 MOS/KG (273-304)
[2019-06-21] MEDS ORDERED: TOBRAMYCIN 1.2 GM VIAL TOP ONE ×2 (06:22→07:04)
[2019-06-21] MEDS ORDERED: VANCOMYCIN 1,000 MG VIAL ONE (06:22)
[2019-06-21] MEDS: LEVOTHYROXINE 100 MCG TABLET PO SCH (06:26)
[2019-06-21] MEDS ORDERED: HYDROmorphone 2 MG/1 ML VIAL IV PRN (07:21)
[2019-06-21] MEDS ORDERED: diphenhydrAMINE 50 MG/1 ML VIAL IV PRN (07:21)
[2019-06-21] MEDS ORDERED: ONDANSETRON 4 MG/2 ML VIAL IV PRN (07:21)
[2019-06-21] MEDS ORDERED: PROMETHAZINE INJ 25 MG in SODIUM CHLORIDE 0.9% 50 ML IV PRN ×2 (07:21→12:10)
[2019-06-21] MEDS ORDERED: GENTAMICIN 80 MG/2 ML VIAL ONE (09:20)
[2019-06-21] MEDS: CHOLECALCIFEROL 1,000 UNIT TABLET PO SCH (10:11)
[2019-06-21] MEDS: CYANOCOBALAMIN 500 MCG TABLET PO SCH (10:11)
[2019-06-21] MEDS: ASCORBIC ACID 500 MG TABLET PO SCH (10:11)
[2019-06-21] MEDS: PANTOPRAZOLE 40 MG TABLET PO SCH (10:11)
[2019-06-21] MEDS: VITAMIN E 400 UNIT CAPSULE PO SCH (10:11)
[2019-06-21] MEDS ORDERED: ALBUTEROL/IPRATROPIUM 3 ML NEB RESP TX ONE (11:40)
[2019-06-21] MEDS ORDERED: SEVOFLURANE 1 UNIT/15 MINUTE INH ONE (11:46)
[2019-06-21] MEDS ORDERED: PROPOFOL 200 MG/20 ML VIAL IV ONE (11:46)
[2019-06-21] MEDS ORDERED: LIDOCAINE 2% 5 ML VIAL ONE (11:46)
[2019-06-21] MEDS ORDERED: KETOROLAC 30 MG/1 ML VIAL ONE (11:47)
[2019-06-21] MEDS ORDERED: ONDANSETRON 4 MG/2 ML VIAL ONE ×2 (11:47→11:49)
[2019-06-21] MEDS ORDERED: MIDAZOLAM 2 MG/2 ML VIAL ONE (11:47)
[2019-06-21] MEDS ORDERED: DEXAMETHASONE 4 MG/1 ML VIAL ONE (11:47)
[2019-06-21] MEDS ORDERED: fentaNYL 100 MCG/2 ML VIAL ONE (11:47)
[2019-06-21] MEDS ORDERED: TRANEXAMIC ACID 1,000 MG/10 ML VIAL ONE (11:47)
[2019-06-21] MEDS ORDERED: ACETAMINOPHEN 1,000 MG/100 ML VIAL IV ONE (11:47)
[2019-06-21] MEDS ORDERED: PROMETHAZINE 25 MG/1 ML VIAL ONE (11:49)
[2019-06-21] MEDS ORDERED: MEPERIDINE 25 MG/1 ML VIAL ONE ×2 (11:49→11:57)
[2019-06-21] MEDS: MEPERIDINE 25 MG/1 ML VIAL IV PRN ×2 (11:54→12:10)
[2019-06-21 12:02] LABS: HIV Antigen/Antibody Result Nonreactive (Nonreactive); Hepatitis B Surface Ag Quant 0.45 Index; Hepatitis B Surface Ag Result Negative (Negative); Hepatitis C Virus Ab Quant 0.02 Index; Hepatitis C Virus Ab Result Negative (Negative)
[2019-06-21] MEDS: valACYclovir 500 MG TABLET PO SCH (12:48)
[2019-06-21] MEDS: QUEtiapine 25 MG TABLET PO SCH ×2 (12:48→21:31)
[2019-06-21] MEDS: FUROSEMIDE 20 MG TABLET PO SCH (12:48)
[2019-06-21] MEDS: GABAPENTIN 600 MG TABLET PO SCH ×2 (12:48→21:32)
[2019-06-21] MEDS: oxyCODONE IR 5 MG TABLET PO PRN ×2 (13:37→19:31)
[2019-06-21] MEDS: DULoxetine 30 MG CAPSULE PO SCH (21:31)
[2019-06-21] MEDS: chlorproMAZINE 25 MG TABLET PO SCH (21:31)
[2019-06-21] MEDS: ENOXAPARIN 40 MG/0.4 ML SYRINGE SUBCUT SCH (21:31)
[2019-06-21] MEDS: LURASIDONE 40 MG TABLET PO SCH (21:32)
[2019-06-21] MEDS: CETIRIZINE 10 MG TABLET PO SCH (21:32)
[2019-06-22 05:27] LABS: Basophils % 0.2 % (0.0-0.8); Hematocrit 23.7 VOL% (35.7-47.0); Hemoglobin 7.2 GM/DL (12.0-16.0); Immature Granulocytes % 0.5 %; Immature Granulocytes Absolute 0.06 #; Lymphocytes # 1.7 10*3/uL (1.4-4.0); Lymphocytes % 13.8 % (21.3-54.2); Mean Corpuscular HGB Conc 30.4 GM/DL (32-36); Mean Platelet Volume 9.4 FL (9.6-12.0); Neutrophils % 83.5 % (38.7-73.9); Platelet Count 252 T/CUMM (130-400); Red Blood Count 2.47 MC/CUMM (3.8-5.5); Red Cell Distribution Width 16.1 % (9.3-17.3)
[2019-06-22 05:58] LABS: Osmolality,Calculated 280.3 MOS/KG (273-304)
[2019-06-22] MEDS: LEVOTHYROXINE 100 MCG TABLET PO SCH (06:09)
[2019-06-22] MEDS ORDERED: SODIUM CHLORIDE 0.9% 1,000 ML IV PRN (07:49)
[2019-06-22] MEDS: oxyCODONE IR 5 MG TABLET PO PRN ×3 (08:14→22:32)
[2019-06-22] MEDS: GABAPENTIN 600 MG TABLET PO SCH ×2 (09:41→20:50)
[2019-06-22] MEDS: PANTOPRAZOLE 40 MG TABLET PO SCH (09:41)
[2019-06-22] MEDS: FUROSEMIDE 20 MG TABLET PO SCH (09:41)
[2019-06-22] MEDS: QUEtiapine 25 MG TABLET PO SCH ×2 (09:41→20:50)
[2019-06-22] MEDS: CYANOCOBALAMIN 500 MCG TABLET PO SCH (09:42)
[2019-06-22] MEDS: valACYclovir 500 MG TABLET PO SCH (09:42)
[2019-06-22] MEDS: ASCORBIC ACID 500 MG TABLET PO SCH (09:42)
[2019-06-22] MEDS: VITAMIN E 400 UNIT CAPSULE PO SCH (09:42)
[2019-06-22] MEDS: CHOLECALCIFEROL 1,000 UNIT TABLET PO SCH (09:42)
[2019-06-22] MEDS ORDERED: FUROSEMIDE 40 MG/4 ML VIAL IV ONE (11:31)
[2019-06-22] MEDS: VANCOMYCIN INJ 1,750 MG in SODIUM CHLORIDE 0.9% 500 ML IV SCH (17:13)
[2019-06-22] MEDS: LURASIDONE 40 MG TABLET PO SCH (20:50)
[2019-06-22] MEDS: chlorproMAZINE 25 MG TABLET PO SCH (20:50)
[2019-06-22] MEDS: DULoxetine 30 MG CAPSULE PO SCH (20:50)
[2019-06-22] MEDS: ENOXAPARIN 40 MG/0.4 ML SYRINGE SUBCUT SCH (20:50)
[2019-06-22] MEDS: CETIRIZINE 10 MG TABLET PO SCH (20:50)
[2019-06-22 20:59] LABS: Hematocrit 26.7 VOL% (35.7-47.0); Hemoglobin 8.4 GM/DL (12.0-16.0)
[2019-06-23] MEDS: ACETAMINOPHEN 325 MG TABLET PO PRN ×2 (00:47→09:16)
[2019-06-23] MEDS: VANCOMYCIN INJ 1,750 MG in SODIUM CHLORIDE 0.9% 500 ML IV SCH ×2 (04:26→16:36)
[2019-06-23] MEDS: oxyCODONE IR 5 MG TABLET PO PRN ×3 (04:26→20:49)
[2019-06-23 05:12] LABS: Basophils % 0.1 % (0.0-0.8); Eosinophils # 0.1 10*3/uL (0.0-0.87); Eosinophils % 1.5 % (0.00-10.9); Hematocrit 27.8 VOL% (35.7-47.0); Hemoglobin 8.6 GM/DL (12.0-16.0); Immature Granulocytes % 0.6 %; Immature Granulocytes Absolute 0.05 #; Lymphocytes # 2.7 10*3/uL (1.4-4.0); Lymphocytes % 30.8 % (21.3-54.2); Mean Corpuscular HGB Conc 30.9 GM/DL (32-36); Mean Corpuscular Volume 94.2 FL (87-102); Mean Platelet Volume 9.5 FL (9.6-12.0); Monocytes % 4.7 % (1.7-12.7); Neutrophils % 62.3 % (38.7-73.9); Platelet Count 268 T/CUMM (130-400); Red Blood Count 2.95 MC/CUMM (3.8-5.5); Red Cell Distribution Width 15.9 % (9.3-17.3); White Blood Count 8.8 T/CUMM (4-12)
[2019-06-23 05:33] LABS: Calcium 8.7 MG/DL (8.5-10.1); Osmolality,Calculated 282.8 MOS/KG (273-304)
[2019-06-23 05:38] LABS: Calcium 8.4 MG/DL (8.5-10.1); Osmolality,Calculated 276.3 MOS/KG (273-304)
[2019-06-23] MEDS: LEVOTHYROXINE 100 MCG TABLET PO SCH (07:02)
[2019-06-23] MEDS: valACYclovir 500 MG TABLET PO SCH (09:15)
[2019-06-23] MEDS: GABAPENTIN 600 MG TABLET PO SCH ×2 (09:15→20:42)
[2019-06-23] MEDS: FUROSEMIDE 20 MG TABLET PO SCH (09:15)
[2019-06-23] MEDS: CYANOCOBALAMIN 500 MCG TABLET PO SCH (09:15)
[2019-06-23] MEDS: PANTOPRAZOLE 40 MG TABLET PO SCH (09:15)
[2019-06-23] MEDS: QUEtiapine 25 MG TABLET PO SCH ×2 (09:15→20:42)
[2019-06-23] MEDS: ASCORBIC ACID 500 MG TABLET PO SCH (09:16)
[2019-06-23] MEDS: CHOLECALCIFEROL 1,000 UNIT TABLET PO SCH (09:16)
[2019-06-23] MEDS: VITAMIN E 400 UNIT CAPSULE PO SCH (09:20)
[2019-06-23] MEDS: fentaNYL 50 MCG/HR PATCH TRANSDERM SCH (20:40)
[2019-06-23] MEDS: LURASIDONE 40 MG TABLET PO SCH (20:41)
[2019-06-23] MEDS: CETIRIZINE 10 MG TABLET PO SCH (20:41)
[2019-06-23] MEDS: chlorproMAZINE 25 MG TABLET PO SCH (20:42)
[2019-06-23] MEDS: DULoxetine 30 MG CAPSULE PO SCH (20:42)
[2019-06-23] MEDS: ENOXAPARIN 40 MG/0.4 ML SYRINGE SUBCUT SCH (20:42)
[2019-06-24] MEDS: VANCOMYCIN INJ 1,750 MG in SODIUM CHLORIDE 0.9% 500 ML IV SCH ×2 (04:22→18:31)
[2019-06-24 04:50] LABS: Basophils % 0.2 % (0.0-0.8); Eosinophils # 0.4 10*3/uL (0.0-0.87); Hematocrit 29.2 VOL% (35.7-47.0); Immature Granulocytes % 0.7 %; Immature Granulocytes Absolute 0.06 #; Lymphocytes # 2.6 10*3/uL (1.4-4.0); Mean Corpuscular HGB Conc 30.8 GM/DL (32-36); Mean Corpuscular Volume 94.2 FL (87-102); Mean Platelet Volume 9.3 FL (9.6-12.0); Monocytes % 5.4 % (1.7-12.7); Neutrophils % 59.7 % (38.7-73.9); Platelet Count 298 T/CUMM (130-400); Red Cell Distribution Width 15.5 % (9.3-17.3); White Blood Count 8.7 T/CUMM (4-12)
[2019-06-24 05:16] LABS: Calcium 8.6 MG/DL (8.5-10.1); Osmolality,Calculated 278.3 MOS/KG (273-304)
[2019-06-24] MEDS: LEVOTHYROXINE 100 MCG TABLET PO SCH (06:31)
[2019-06-24] MEDS: FUROSEMIDE 20 MG TABLET PO SCH (09:33)
[2019-06-24] MEDS: CYANOCOBALAMIN 500 MCG TABLET PO SCH (09:33)
[2019-06-24] MEDS: PANTOPRAZOLE 40 MG TABLET PO SCH (09:33)
[2019-06-24] MEDS: GABAPENTIN 600 MG TABLET PO SCH ×2 (09:33→20:51)
[2019-06-24] MEDS: QUEtiapine 25 MG TABLET PO SCH ×2 (09:33→20:51)
[2019-06-24] MEDS: VITAMIN E 400 UNIT CAPSULE PO SCH (09:33)
[2019-06-24] MEDS: ASCORBIC ACID 500 MG TABLET PO SCH (09:33)
[2019-06-24] MEDS: valACYclovir 500 MG TABLET PO SCH (09:33)
[2019-06-24] MEDS: oxyCODONE IR 5 MG TABLET PO PRN ×2 (09:34→19:09)
[2019-06-24] MEDS: CHOLECALCIFEROL 1,000 UNIT TABLET PO SCH (09:34)
[2019-06-24] MEDS: DULoxetine 30 MG CAPSULE PO SCH (20:51)
[2019-06-24] MEDS: ENOXAPARIN 40 MG/0.4 ML SYRINGE SUBCUT SCH (20:51)
[2019-06-24] MEDS: CETIRIZINE 10 MG TABLET PO SCH (20:51)
[2019-06-24] MEDS: chlorproMAZINE 25 MG TABLET PO SCH (20:51)
[2019-06-24] MEDS: LURASIDONE 40 MG TABLET PO SCH (20:51)
[2019-06-25] MEDS: LEVOTHYROXINE 100 MCG TABLET PO SCH (06:06)
[2019-06-25 06:15] LABS: Basophils % 0.2 % (0.0-0.8); Eosinophils # 0.4 10*3/uL (0.0-0.87); Eosinophils % 4.7 % (0.00-10.9); Hematocrit 31.3 VOL% (35.7-47.0); Hemoglobin 9.5 GM/DL (12.0-16.0); Immature Granulocytes % 0.9 %; Immature Granulocytes Absolute 0.08 #; Lymphocytes # 2.2 10*3/uL (1.4-4.0); Lymphocytes % 23.5 % (21.3-54.2); Mean Corpuscular HGB Conc 30.4 GM/DL (32-36); Mean Corpuscular Volume 96.3 FL (87-102); Mean Platelet Volume 9.1 FL (9.6-12.0); Monocytes % 5.2 % (1.7-12.7); Neutrophils % 65.5 % (38.7-73.9); Platelet Count 327 T/CUMM (130-400); Red Blood Count 3.25 MC/CUMM (3.8-5.5); Red Cell Distribution Width 15.7 % (9.3-17.3); White Blood Count 9.2 T/CUMM (4-12)
[2019-06-25 06:39] LABS: Alanine Aminotransferase 21 U/L (13-56); Albumin 2.4 G/DL (3.4-5.0); Alkaline Phosphatase 119 U/L (45-117); Aspartate Amino Transferase 10 U/L (0-37); Bilirubin,Total < 0.39 MG/DL (0.2-1.0); Blood Urea Nitrogen 9 MG/DL (7-18); Calcium 8.7 MG/DL (8.5-10.1); Estimated Glom Filtration Rate 155 ML/MIN; Glucose 96 MG/DL (74-106); Osmolality,Calculated 275.5 MOS/KG (273-304); Total Protein 6.6 G/DL (6.4-8.3)
[2019-06-25] MEDS: CHOLECALCIFEROL 1,000 UNIT TABLET PO SCH (09:48)
[2019-06-25] MEDS: GABAPENTIN 600 MG TABLET PO SCH (09:48)
[2019-06-25] MEDS: ASCORBIC ACID 500 MG TABLET PO SCH (09:48)
[2019-06-25] MEDS: valACYclovir 500 MG TABLET PO SCH (09:48)
[2019-06-25] MEDS: VITAMIN E 400 UNIT CAPSULE PO SCH (09:48)
[2019-06-25] MEDS: PANTOPRAZOLE 40 MG TABLET PO SCH (09:49)
[2019-06-25] MEDS: QUEtiapine 25 MG TABLET PO SCH (09:49)
[2019-06-25] MEDS: FUROSEMIDE 20 MG TABLET PO SCH (09:49)
[2019-06-25] MEDS: CYANOCOBALAMIN 500 MCG TABLET PO SCH (09:49)
[2019-06-25] MEDS: oxyCODONE IR 5 MG TABLET PO PRN (09:54)
[2019-06-25 11:06] VITALS: BP 124/54
[2019-06-25] MEDS ORDERED: VANCOMYCIN INJ 1,750 MG in SODIUM CHLORIDE 0.9% 500 ML IV SCH (12:00)
[2019-06-26] MEDS ORDERED: FUROSEMIDE 20 MG TABLET PO SCH (09:00)
== END 2019-06-25 17:40 | DRG 302 ==
LOC: N.ED 08:51 → SUATTDRO 12:18 → N.EDINP 12:18 → N.3E 14:01
PROVIDERS: ADMIT Internal Medicine; ATTEND Internal Medicine Cardiovascular Disease

== ENCOUNTER 2019-08-07 10:41 | Observation (INO) ==
[2019-08-07 11:31] LABS: Basophils % 0.2 % (0.0-0.8); Eosinophils # 0.2 10*3/uL (0.0-0.87); Eosinophils % 2.2 % (0.00-10.9); Hematocrit 30.3 VOL% (35.7-47.0); Hemoglobin 9.2 GM/DL (12.0-16.0); Immature Granulocytes % 0.4 %; Immature Granulocytes Absolute 0.04 #; Lymphocytes # 1.4 10*3/uL (1.4-4.0); Lymphocytes % 15.7 % (21.3-54.2); Mean Corpuscular HGB Conc 30.4 GM/DL (32-36); Mean Corpuscular Volume 93.8 FL (87-102); Mean Platelet Volume 9.5 FL (9.6-12.0); Monocytes % 3.7 % (1.7-12.7); Neutrophils % 77.8 % (38.7-73.9); Platelet Count 337 T/CUMM (130-400); Red Blood Count 3.23 MC/CUMM (3.8-5.5); Red Cell Distribution Width 14.8 % (9.3-17.3); White Blood Count 9.1 T/CUMM (4-12)
[2019-08-07 11:53] LABS: Albumin 3.2 G/DL (3.4-5.0); Bilirubin,Total 0.5 MG/DL (0.2-1.0); Calcium 8.9 MG/DL (8.5-10.1); Osmolality,Calculated 282.4 MOS/KG (273-304); Total Protein 7.5 G/DL (6.4-8.3)
[2019-08-07 13:25] LABS: Sedimentation Rate-Westergren 114 MM/HR (0-30)
[2019-08-07] MEDS ORDERED: ONDANSETRON 4 MG/2 ML VIAL IV PRN (13:41)
[2019-08-07] MEDS ORDERED: ACETAMINOPHEN 325 MG TABLET PO PRN (13:41)
[2019-08-07] MEDS ORDERED: SODIUM CHLORIDE 0.9% 2,000 ML IV ONE (13:44)
[2019-08-07] MEDS ORDERED: fentaNYL 50 MCG/HR PATCH TRANSDERM SCH (14:00)
[2019-08-07 14:05] LABS: Apearance,Urine CLEAR (Clear); Bacteria,Urine Occasional /HPF (Few); Bilirubin,Urine Negative (Negative); Blood, Urine Moderate mg/dL (Negative); Glucose,Urine (UA) Negative (Negative); Ketones,Urine Negative (Negative); Mucus,Urine Occasional /LPF (Occasional); Nitrite,Urine Negative (Negative); Protein,Urine Negative; RBC,Urine 1 /HPF (0-4); Squamous Epithelial Cell,Urine Occasional /HPF (0-10); Urine Color Yellow (Yellow); Urine Specific Gravity 1.009 (1.001-1.035); Urine Urobilinogen < 2.0 EU/DL (0.2-1.0); WBC,Urine 3 /HPF (0-6)
[2019-08-07] MEDS: SODIUM CHLORIDE 0.9% 1,000 ML IV SCH (17:56)
[2019-08-07] MEDS: DULoxetine 30 MG CAPSULE PO SCH (21:04)
[2019-08-07] MEDS: busPIRone 10 MG TABLET PO PRN (21:05)
[2019-08-07] MEDS: oxyCODONE IR 5 MG TABLET PO PRN (21:05)
[2019-08-07] MEDS: CETIRIZINE 10 MG TABLET PO SCH (21:05)
[2019-08-07] MEDS: QUEtiapine 25 MG TABLET PO SCH (21:05)
[2019-08-07] MEDS: LURASIDONE 40 MG TABLET PO SCH (21:05)
[2019-08-07] MEDS: METHOCARBAMOL 500 MG TABLET PO PRN (21:06)
[2019-08-07] MEDS: GABAPENTIN 600 MG TABLET PO SCH (22:57)
[2019-08-07] MEDS: HEPARIN 5,000 UNIT/1 ML VIAL SUBCUT SCH (22:57)
[2019-08-07] MEDS: chlorproMAZINE 25 MG TABLET PO SCH (23:01)
[2019-08-08] MEDS: SODIUM CHLORIDE 0.9% 1,000 ML IV SCH ×4 (00:48→23:02)
[2019-08-08] MEDS: HEPARIN 5,000 UNIT/1 ML VIAL SUBCUT SCH ×3 (06:35→22:34)
[2019-08-08] MEDS: LEVOTHYROXINE 100 MCG TABLET PO SCH (06:37)
[2019-08-08 06:41] LABS: Basophils % 0.2 % (0.0-0.8); Eosinophils # 0.2 10*3/uL (0.0-0.87); Eosinophils % 3.4 % (0.00-10.9); Hematocrit 24.5 VOL% (35.7-47.0); Immature Granulocytes % 0.4 %; Immature Granulocytes Absolute 0.02 #; Lymphocytes # 1.7 10*3/uL (1.4-4.0); Lymphocytes % 30.7 % (21.3-54.2); Mean Corpuscular HGB Conc 31.4 GM/DL (32-36); Mean Corpuscular Volume 90.7 FL (87-102); Mean Platelet Volume 9.6 FL (9.6-12.0); Monocytes % 6.8 % (1.7-12.7); Neutrophils % 58.5 % (38.7-73.9); Platelet Count 289 T/CUMM (130-400); Red Cell Distribution Width 14.9 % (9.3-17.3); White Blood Count 5.6 T/CUMM (4-12)
[2019-08-08 06:43] LABS: Hemoglobin 7.7 GM/DL (12.0-16.0)
[2019-08-08 07:01] LABS: Calcium 8.7 MG/DL (8.5-10.1); Osmolality,Calculated 285.7 MOS/KG (273-304)
[2019-08-08] MEDS: CHOLECALCIFEROL 1,000 UNIT TABLET PO SCH (09:30)
[2019-08-08] MEDS: ASCORBIC ACID 500 MG TABLET PO SCH (09:30)
[2019-08-08] MEDS: VITAMIN E 400 UNIT CAPSULE PO SCH (09:30)
[2019-08-08] MEDS: valACYclovir 500 MG TABLET PO SCH (09:30)
[2019-08-08] MEDS: PANTOPRAZOLE 40 MG TABLET PO SCH (09:30)
[2019-08-08] MEDS: ROSUVASTATIN 20 MG TABLET PO SCH (09:31)
[2019-08-08] MEDS: CYANOCOBALAMIN 500 MCG TABLET PO SCH (09:31)
[2019-08-08] MEDS: busPIRone 10 MG TABLET PO PRN ×2 (09:31→21:00)
[2019-08-08] MEDS: GABAPENTIN 600 MG TABLET PO SCH ×2 (09:31→21:00)
[2019-08-08] MEDS: oxyCODONE IR 5 MG TABLET PO PRN ×2 (09:32→20:59)
[2019-08-08] MEDS: QUEtiapine 25 MG TABLET PO SCH ×2 (09:32→21:00)
[2019-08-08] MEDS: ZINC GLUCONATE 50 MG TABLET PO SCH (09:38)
[2019-08-08] MEDS: amLODIPine 10 MG TABLET PO SCH (11:16)
[2019-08-08 13:53] LABS: Hematocrit 26.7 VOL% (35.7-47.0); Hemoglobin 8.1 GM/DL (12.0-16.0)
[2019-08-08] MEDS: chlorproMAZINE 25 MG TABLET PO SCH (20:59)
[2019-08-08] MEDS: LURASIDONE 40 MG TABLET PO SCH (20:59)
[2019-08-08] MEDS: DULoxetine 30 MG CAPSULE PO SCH (21:00)
[2019-08-08] MEDS: METHOCARBAMOL 500 MG TABLET PO PRN (21:00)
[2019-08-08] MEDS: CETIRIZINE 10 MG TABLET PO SCH (21:03)
[2019-08-08 22:43] LABS: Hematocrit 27.2 VOL% (35.7-47.0); Hemoglobin 8.5 GM/DL (12.0-16.0)
[2019-08-09 06:13] LABS: Calcium 9.4 MG/DL (8.5-10.1); Osmolality,Calculated 284.3 MOS/KG (273-304)
[2019-08-09 06:32] LABS: Hematocrit 30.9 VOL% (35.7-47.0); Hemoglobin 9.5 GM/DL (12.0-16.0)
[2019-08-09] MEDS: LEVOTHYROXINE 100 MCG TABLET PO SCH (06:52)
[2019-08-09] MEDS: HEPARIN 5,000 UNIT/1 ML VIAL SUBCUT SCH ×2 (06:52→13:21)
[2019-08-09] MEDS: oxyCODONE IR 5 MG TABLET PO PRN ×2 (10:32→16:39)
[2019-08-09] MEDS: CYANOCOBALAMIN 500 MCG TABLET PO SCH (10:35)
[2019-08-09] MEDS: VITAMIN E 400 UNIT CAPSULE PO SCH (10:35)
[2019-08-09] MEDS: PANTOPRAZOLE 40 MG TABLET PO SCH (10:35)
[2019-08-09] MEDS: CHOLECALCIFEROL 1,000 UNIT TABLET PO SCH (10:35)
[2019-08-09] MEDS: amLODIPine 10 MG TABLET PO SCH (10:36)
[2019-08-09] MEDS: ZINC GLUCONATE 50 MG TABLET PO SCH (10:36)
[2019-08-09] MEDS: ROSUVASTATIN 20 MG TABLET PO SCH (10:36)
[2019-08-09] MEDS: ASCORBIC ACID 500 MG TABLET PO SCH (10:36)
[2019-08-09] MEDS: valACYclovir 500 MG TABLET PO SCH (10:36)
[2019-08-09] MEDS: QUEtiapine 25 MG TABLET PO SCH (10:36)
[2019-08-09] MEDS: GABAPENTIN 600 MG TABLET PO SCH (10:39)
[2019-08-09] MEDS: SODIUM CHLORIDE 0.9% 1,000 ML IV SCH (10:45)
[2019-08-09] MEDS: METHOCARBAMOL 500 MG TABLET PO PRN (14:27)
[2019-08-09 16:08] VITALS: BP 116/68
== END 2019-08-09 18:29 | disposition home or self-care (01) ==
LOC: N.ED 10:41 → N.EDINP 10:41 → SUATTDRO 13:41 → N.5E 15:28
PROVIDERS: ADMIT Emergency Medicine; ATTEND Internal Medicine

== ENCOUNTER 2019-09-11 06:13 | Inpatient (IN) ==
[~2019-09-11 06:13] MED LIST: LACTATED RINGERS 1,000 ML IV SCH
[2019-09-11] MEDS ORDERED: DEXMEDETOMIDINE 200 MCG/2 ML VIAL IV ONE (06:57)
[2019-09-11] MEDS ORDERED: VANCOMYCIN INJ 1,000 MG in SODIUM CHLORIDE 0.9% 250 ML IV ONE (07:00)
[2019-09-11] MEDS ORDERED: VANCOMYCIN 1,000 MG VIAL ONE (07:15)
[2019-09-11] MEDS ORDERED: ROPIVACAINE 0.5% 30 ML VIAL ONE (07:19)
[2019-09-11] MEDS ORDERED: LIDOCAINE 1% 5 ML VIAL ONE (07:19)
[2019-09-11] MEDS ORDERED: MIDAZOLAM 2 MG/2 ML VIAL ONE (07:20)
[2019-09-11] MEDS ORDERED: DEXAMETHASONE 4 MG/1 ML VIAL ONE (07:20)
[2019-09-11] MEDS ORDERED: PHENYLEPHRINE DRIP 20 MG/250 ML PREMIX IV ONE (07:20)
[2019-09-11 07:31] LABS: Osmolality,Calculated 276.2 MOS/KG (273-304)
[2019-09-11] MEDS ORDERED: POTASSIUM CHLORIDE 20 MEQ TABLET PO ONE (09:45)
[2019-09-11] MEDS: SODIUM CHLORIDE 0.9% 1,000 ML IV SCH ×2 (10:20→21:07)
[2019-09-11] MEDS ORDERED: fentaNYL 50 MCG/HR PATCH TRANSDERM SCH (10:30)
[2019-09-11] MEDS: oxyCODONE IR 5 MG TABLET PO SCH ×4 (10:51→21:05)
[2019-09-11] MEDS ORDERED: ENOXAPARIN 40 MG/0.4 ML SYRINGE SUBCUT SCH (11:00)
[2019-09-11] MEDS: busPIRone 5 MG TABLET PO SCH ×2 (15:31→21:04)
[2019-09-11] MEDS: METHOCARBAMOL 500 MG TABLET PO SCH ×2 (15:31→21:05)
[2019-09-11] MEDS: chlorproMAZINE 25 MG TABLET PO SCH (21:04)
[2019-09-11] MEDS: GABAPENTIN 600 MG TABLET PO SCH (21:04)
[2019-09-11] MEDS: CETIRIZINE 10 MG TABLET PO SCH (21:05)
[2019-09-11] MEDS: QUEtiapine 25 MG TABLET PO SCH (21:05)
[2019-09-11] MEDS: DULoxetine 30 MG CAPSULE PO SCH (21:05)
[2019-09-11] MEDS: LURASIDONE 40 MG TABLET PO SCH (21:06)
[2019-09-12] MEDS: SODIUM CHLORIDE 0.9% 1,000 ML IV SCH ×3 (04:53→23:17)
[2019-09-12 06:02] LABS: Basophils % 0.1 % (0.0-0.8); Eosinophils # 0.1 10*3/uL (0.0-0.87); Eosinophils % 0.3 % (0.00-10.9); Hematocrit 24.7 VOL% (35.7-47.0); Hemoglobin 7.7 GM/DL (12.0-16.0); Immature Granulocytes % 1.5 %; Lymphocytes # 0.9 10*3/uL (1.4-4.0); Lymphocytes % 4.4 % (21.3-54.2); Mean Corpuscular HGB Conc 31.2 GM/DL (32-36); Mean Corpuscular Volume 89.8 FL (87-102); Mean Platelet Volume 10.1 FL (9.6-12.0); Monocytes % 3.8 % (1.7-12.7); Neutrophils % 89.9 % (38.7-73.9); Platelet Count 293 T/CUMM (130-400); Red Blood Count 2.75 MC/CUMM (3.8-5.5); White Blood Count 20.1 T/CUMM (4-12)
[2019-09-12 06:28] LABS: Anisocytosis 1+; Hypochromasia Slight; Lymphocytes 4 % (20-55); Microcytosis 1+; Platelet Estimate Normal; Segmented Neutrophils 93 % (50-85); Total Cells Counted 100
[2019-09-12 06:29] LABS: Calcium 8.5 MG/DL (8.5-10.1); Osmolality,Calculated 278.2 MOS/KG (273-304); Ovalocytes Slight; Risk Ratio 18.45; Target Cells Few; Thyroid Stimulating Hormone 1.1 uIU/ml (0.358-3.74); VLDL CHOLESTEROL 103.2 MG/DL
[2019-09-12 06:49] LABS: Calcium 8.8 MG/DL (8.5-10.1); Osmolality,Calculated 272.7 MOS/KG (273-304)
[2019-09-12] MEDS: LEVOTHYROXINE 100 MCG TABLET PO SCH (07:10)
[2019-09-12] MEDS: ACETAMINOPHEN 325 MG TABLET PO PRN (07:38)
[2019-09-12] MEDS ORDERED: valACYclovir 500 MG TABLET PO SCH (09:00)
[2019-09-12] MEDS: METHOCARBAMOL 500 MG TABLET PO SCH ×3 (09:48→20:24)
[2019-09-12] MEDS: busPIRone 5 MG TABLET PO SCH ×3 (09:48→21:05)
[2019-09-12] MEDS: CYANOCOBALAMIN 500 MCG TABLET PO SCH (09:48)
[2019-09-12] MEDS: ROSUVASTATIN 20 MG TABLET PO SCH (09:48)
[2019-09-12] MEDS: QUEtiapine 25 MG TABLET PO SCH ×2 (09:48→21:05)
[2019-09-12] MEDS: GABAPENTIN 600 MG TABLET PO SCH ×2 (09:48→20:23)
[2019-09-12] MEDS: CHOLECALCIFEROL 1,000 UNIT TABLET PO SCH (09:48)
[2019-09-12] MEDS: oxyCODONE IR 5 MG TABLET PO SCH ×2 (09:48→14:11)
[2019-09-12] MEDS: ENOXAPARIN 30 MG/0.3 ML SYRINGE SUBCUT SCH (11:53)
[2019-09-12] MEDS ORDERED: SODIUM CHLORIDE 0.9% 250 ML IV ONE ×2 (14:04→16:01)
[2019-09-12] MEDS ORDERED: NALOXONE 0.4 MG/ML VIAL IV ONE (14:53)
[2019-09-12] MEDS ORDERED: NALOXONE 0.4 MG/ML VIAL IV PRN (15:00)
[2019-09-12] MEDS: NALOXONE 0.4 MG/ML VIAL IV PRN (15:50)
[2019-09-12 16:41] LABS: Basophils % 0.1 % (0.0-0.8); Eosinophils % 0.1 % (0.00-10.9); Hematocrit 24.9 VOL% (35.7-47.0); Hemoglobin 7.6 GM/DL (12.0-16.0); Immature Granulocytes % 2.7 %; Immature Granulocytes Absolute 0.54 #; Lymphocytes # 0.8 10*3/uL (1.4-4.0); Mean Corpuscular HGB Conc 30.5 GM/DL (32-36); Mean Corpuscular Volume 91.9 FL (87-102); Mean Platelet Volume 10.3 FL (9.6-12.0); Monocytes % 4.1 % (1.7-12.7); Platelet Count 311 T/CUMM (130-400); Red Blood Count 2.71 MC/CUMM (3.8-5.5); Red Cell Distribution Width 17.2 % (9.3-17.3)
[2019-09-12 17:46] LABS: Apearance,Urine CLOUDY (Clear); Bilirubin,Urine Negative (Negative); Blood, Urine Negative (Negative); Glucose,Urine (UA) Negative (Negative); Hyaline Casts,Urine 70 /LPF (0-3); Ketones,Urine Negative (Negative); Mucus,Urine Occasional /LPF (Occasional); Nitrite,Urine Negative (Negative); Protein,Urine 30 MG/DL; Squamous Epithelial Cell,Urine Occasional /HPF (0-10); Urine Color Amber (Yellow); Urine Specific Gravity 1.024 (1.001-1.035); WBC,Urine 6 /HPF (0-6)
[2019-09-12 18:38] LABS: Lymphocytes 4 % (20-55); Segmented Neutrophils 90 % (50-85); Total Cells Counted 100
[2019-09-12 18:40] LABS: Anisocytosis 2+; Burr Cells 1+; Hypochromasia Slight; Macrocytosis Slight
[2019-09-12 18:41] LABS: Ovalocytes Few; Platelet Estimate Normal; Toxic Granulation 1+
[2019-09-12 20:12] LABS: Folate 6.5 NG/ML (5.4-24.0); Vitamin B12 > 2000 PG/ML (211-911)
[2019-09-12] MEDS: CETIRIZINE 10 MG TABLET PO SCH (20:24)
[2019-09-12] MEDS: chlorproMAZINE 25 MG TABLET PO SCH (21:05)
[2019-09-12] MEDS: DULoxetine 30 MG CAPSULE PO SCH (21:05)
[2019-09-12] MEDS: LURASIDONE 40 MG TABLET PO SCH (21:05)
[2019-09-13 00:23] LABS: Sedimentation Rate-Westergren 128 MM/HR (0-30)
[2019-09-13 04:36] LABS: Basophils % 0.2 % (0.0-0.8); Eosinophils % 0.1 % (0.00-10.9); Hematocrit 24.3 VOL% (35.7-47.0); Hemoglobin 7.6 GM/DL (12.0-16.0); Immature Granulocytes % 1.6 %; Immature Granulocytes Absolute 0.28 #; Lymphocytes % 5.7 % (21.3-54.2); Mean Corpuscular HGB Conc 31.3 GM/DL (32-36); Mean Corpuscular Volume 90.7 FL (87-102); Mean Platelet Volume 10.4 FL (9.6-12.0); Monocytes % 3.8 % (1.7-12.7); Neutrophils % 88.6 % (38.7-73.9); Platelet Count 329 T/CUMM (130-400); Red Blood Count 2.68 MC/CUMM (3.8-5.5); Red Cell Distribution Width 17.4 % (9.3-17.3); White Blood Count 17.1 T/CUMM (4-12)
[2019-09-13 05:23] LABS: Calcium 8.5 MG/DL (8.5-10.1); Osmolality,Calculated 278.5 MOS/KG (273-304)
[2019-09-13 05:39] LABS: Band Neutrophils 20 % (0-10); Lymphocytes 5 % (20-55); Platelet Estimate Normal; Segmented Neutrophils 73 % (50-85); Total Cells Counted 100
[2019-09-13 05:40] LABS: Anisocytosis 1+; Macrocytosis 1+
[2019-09-13] MEDS: ACETAMINOPHEN 325 MG TABLET PO PRN ×3 (06:31→21:18)
[2019-09-13] MEDS: LEVOTHYROXINE 100 MCG TABLET PO SCH (06:31)
[2019-09-13] MEDS: NALOXONE 0.4 MG/ML VIAL IV PRN (07:34)
[2019-09-13] MEDS ORDERED: SODIUM CHLORIDE 0.9% 1,000 ML IV ONE (07:41)
[2019-09-13 07:55] LABS: ABG Base Excess -6.1 MMOL/L (-2.5-2.5); ABG HCO3 19.3 MMOL/L (20-26); ABG Oxygen Saturation 94.1 % (95-100); ABG PCO2 33.7 MM HG (35-48); ABG PH 7.354 (7.35-7.45); ABG PO2 65.2 MM HG (80-95); ABG TCO2 17.6 MMOL/L (23-27); Allen Test Positive
[2019-09-13] MEDS ORDERED: VANCOMYCIN INJ 1,000 MG in SODIUM CHLORIDE 0.9% 250 ML IV SCH (08:00)
[2019-09-13] MEDS ORDERED: MEROPENEM 1,000 MG in SODIUM CHLORIDE 0.9% 100 ML IV SCH (08:00)
[2019-09-13] MEDS ORDERED: VANCOMYCIN INJ 1,500 MG in SODIUM CHLORIDE 0.9% 500 ML IV PRN (08:07)
[2019-09-13] MEDS ORDERED: VANCOMYCIN INJ 1,500 MG in SODIUM CHLORIDE 0.9% 500 ML IV ONE (09:00)
[2019-09-13] MEDS: MEROPENEM 500 MG in SODIUM CHLORIDE 0.9% 100 ML IV SCH ×2 (09:46→20:59)
[2019-09-13] MEDS: busPIRone 5 MG TABLET PO SCH ×3 (09:48→20:59)
[2019-09-13] MEDS: GABAPENTIN 100 MG CAPSULE PO SCH ×3 (09:49→20:57)
[2019-09-13] MEDS: QUEtiapine 25 MG TABLET PO SCH ×2 (09:49→20:57)
[2019-09-13] MEDS: CYANOCOBALAMIN 500 MCG TABLET PO SCH (09:49)
[2019-09-13] MEDS: ROSUVASTATIN 20 MG TABLET PO SCH (09:49)
[2019-09-13] MEDS: METHOCARBAMOL 500 MG TABLET PO SCH ×3 (09:49→20:59)
[2019-09-13] MEDS: CHOLECALCIFEROL 1,000 UNIT TABLET PO SCH (09:50)
[2019-09-13] MEDS: ENOXAPARIN 30 MG/0.3 ML SYRINGE SUBCUT SCH (10:13)
[2019-09-13] MEDS: SODIUM CHLORIDE 0.9% 1,000 ML IV SCH (10:30)
[2019-09-13 14:19] LABS: Apearance,Urine Slightly Hazy (Clear); Bacteria,Urine Occasional /HPF (Few); Bilirubin,Urine Negative (Negative); Blood, Urine Moderate mg/dL (Negative); Glucose,Urine (UA) Negative (Negative); Hyaline Casts,Urine 3 /LPF (0-3); Ketones,Urine Negative (Negative); Nitrite,Urine Negative (Negative); Protein,Urine 30 MG/DL; RBC,Urine 2 /HPF (0-4); Squamous Epithelial Cell,Urine Occasional /HPF (0-10); Urine Color Yellow (Yellow); Urine Specific Gravity 1.009 (1.001-1.035); Urine Urobilinogen < 2.0 EU/DL (0.2-1.0)
[2019-09-13] MEDS: CETIRIZINE 10 MG TABLET PO SCH (20:58)
[2019-09-13] MEDS: DULoxetine 30 MG CAPSULE PO SCH (20:58)
[2019-09-13] MEDS: LURASIDONE 40 MG TABLET PO SCH (21:00)
[2019-09-13] MEDS: chlorproMAZINE 25 MG TABLET PO SCH (21:40)
[2019-09-14] MEDS: ACETAMINOPHEN 325 MG TABLET PO PRN ×3 (04:38→19:11)
[2019-09-14] MEDS: SODIUM CHLORIDE 0.9% 1,000 ML IV SCH ×2 (05:19→19:32)
[2019-09-14 05:21] LABS: Basophils % 0.2 % (0.0-0.8); Eosinophils % 0.2 % (0.00-10.9); Hemoglobin 7.5 GM/DL (12.0-16.0); Immature Granulocytes % 3.1 %; Immature Granulocytes Absolute 0.57 #; Lymphocytes % 5.5 % (21.3-54.2); Mean Corpuscular HGB Conc 31.3 GM/DL (32-36); Mean Corpuscular Volume 88.2 FL (87-102); Mean Platelet Volume 10.1 FL (9.6-12.0); Monocytes % 4.1 % (1.7-12.7); Neutrophils % 86.9 % (38.7-73.9); Platelet Count 347 T/CUMM (130-400); Red Blood Count 2.72 MC/CUMM (3.8-5.5); Red Cell Distribution Width 17.5 % (9.3-17.3); White Blood Count 18.5 T/CUMM (4-12)
[2019-09-14 05:45] LABS: Band Neutrophils 2 % (0-10); Eosinophils 1 % (0-10); Hypochromasia 1+; Lymphocytes 5 % (20-55); Platelet Estimate Adequate; Segmented Neutrophils 85 % (50-85); Total Cells Counted 100
[2019-09-14 06:01] LABS: Albumin 1.5 G/DL (3.4-5.0); Bilirubin,Total 1.4 MG/DL (0.2-1.0); Calcium 8.8 MG/DL (8.5-10.1); Osmolality,Calculated 285.4 MOS/KG (273-304); Total Protein 5.9 G/DL (6.4-8.3)
[2019-09-14] MEDS ORDERED: METHOCARBAMOL 500 MG TABLET PO PRN (08:16)
[2019-09-14] MEDS ORDERED: busPIRone 5 MG TABLET PO PRN (08:18)
[2019-09-14] MEDS: MEROPENEM 500 MG in SODIUM CHLORIDE 0.9% 100 ML IV SCH ×2 (09:03→20:20)
[2019-09-14] MEDS: CYANOCOBALAMIN 500 MCG TABLET PO SCH (09:04)
[2019-09-14] MEDS: GABAPENTIN 100 MG CAPSULE PO SCH ×3 (09:04→20:21)
[2019-09-14] MEDS: LEVOTHYROXINE 100 MCG TABLET PO SCH (09:05)
[2019-09-14] MEDS: CHOLECALCIFEROL 1,000 UNIT TABLET PO SCH (09:05)
[2019-09-14] MEDS: ROSUVASTATIN 20 MG TABLET PO SCH (09:05)
[2019-09-14] MEDS: QUEtiapine 25 MG TABLET PO SCH ×2 (09:10→20:21)
[2019-09-14 09:44] LABS: Hemoglobin A1 (Alkaline) 97.2 % (96.5-98.5); Hemoglobin A2 (Alkaline) 2.8 % (1.5-3.5)
[2019-09-14] MEDS: ENOXAPARIN 30 MG/0.3 ML SYRINGE SUBCUT SCH (11:27)
[2019-09-14] MEDS ORDERED: VANCOMYCIN INJ 1,500 MG in SODIUM CHLORIDE 0.9% 500 ML IV SCH (12:00)
[2019-09-14] MEDS: LURASIDONE 40 MG TABLET PO SCH (20:21)
[2019-09-14] MEDS: DULoxetine 30 MG CAPSULE PO SCH (20:21)
[2019-09-14] MEDS: CETIRIZINE 10 MG TABLET PO SCH (20:21)
[2019-09-15 05:57] LABS: Basophils # 0.1 10*3/uL (0.0-0.2); Basophils % 0.3 % (0.0-0.8); Eosinophils # 0.1 10*3/uL (0.0-0.87); Eosinophils % 0.4 % (0.00-10.9); Hematocrit 22.2 VOL% (35.7-47.0); Hemoglobin 7.2 GM/DL (12.0-16.0); Immature Granulocytes % 8.3 %; Immature Granulocytes Absolute 1.77 #; Lymphocytes # 1.6 10*3/uL (1.4-4.0); Lymphocytes % 7.4 % (21.3-54.2); Mean Corpuscular HGB Conc 32.4 GM/DL (32-36); Mean Corpuscular Volume 85.1 FL (87-102); Mean Platelet Volume 10.1 FL (9.6-12.0); Monocytes % 5.2 % (1.7-12.7); Neutrophils % 78.4 % (38.7-73.9); Platelet Count 385 T/CUMM (130-400); Red Blood Count 2.61 MC/CUMM (3.8-5.5); Red Cell Distribution Width 17.1 % (9.3-17.3); White Blood Count 21.4 T/CUMM (4-12)
[2019-09-15] MEDS: LEVOTHYROXINE 100 MCG TABLET PO SCH (06:18)
[2019-09-15 06:19] LABS: Albumin 1.5 G/DL (3.4-5.0); Band Neutrophils 1 % (0-10); Bilirubin,Total 0.9 MG/DL (0.2-1.0); Calcium 8.6 MG/DL (8.5-10.1); Hypochromasia 1+; Lymphocytes 8 % (20-55); Osmolality,Calculated 274.8 MOS/KG (273-304); Platelet Estimate Adequate; Segmented Neutrophils 86 % (50-85); Total Cells Counted 100; Total Protein 6.3 G/DL (6.4-8.3)
[2019-09-15] MEDS: SODIUM CHLORIDE 0.9% 1,000 ML IV SCH ×2 (07:30→09:32)
[2019-09-15] MEDS: ROSUVASTATIN 20 MG TABLET PO SCH (09:29)
[2019-09-15] MEDS: QUEtiapine 25 MG TABLET PO SCH ×2 (09:29→22:16)
[2019-09-15] MEDS: CYANOCOBALAMIN 500 MCG TABLET PO SCH (09:30)
[2019-09-15] MEDS: CHOLECALCIFEROL 1,000 UNIT TABLET PO SCH (09:30)
[2019-09-15] MEDS: GABAPENTIN 100 MG CAPSULE PO SCH ×3 (09:30→22:14)
[2019-09-15] MEDS: VANCOMYCIN INJ 1,500 MG in SODIUM CHLORIDE 0.9% 500 ML IV SCH ×2 (09:31→22:37)
[2019-09-15] MEDS: ENOXAPARIN 30 MG/0.3 ML SYRINGE SUBCUT SCH (12:19)
[2019-09-15] MEDS: ACETAMINOPHEN 325 MG TABLET PO PRN ×2 (12:20→17:45)
[2019-09-15] MEDS: PANTOPRAZOLE 40 MG TABLET PO SCH (14:10)
[2019-09-15] MEDS: LURASIDONE 40 MG TABLET PO SCH (22:15)
[2019-09-15] MEDS: DULoxetine 30 MG CAPSULE PO SCH (22:15)
[2019-09-15] MEDS: CETIRIZINE 10 MG TABLET PO SCH (22:16)
[2019-09-16] MEDS: LEVOTHYROXINE 100 MCG TABLET PO SCH (06:30)
[2019-09-16] MEDS: ACETAMINOPHEN 325 MG TABLET PO PRN ×2 (06:32→21:28)
[2019-09-16 08:23] LABS: Basophils % 0.2 % (0.0-0.8); Eosinophils % 0.1 % (0.00-10.9); Hematocrit 23.5 VOL% (35.7-47.0); Hemoglobin 7.7 GM/DL (12.0-16.0); Immature Granulocytes % 6.6 %; Immature Granulocytes Absolute 1.44 #; Mean Corpuscular HGB Conc 32.8 GM/DL (32-36); Mean Corpuscular Volume 84.5 FL (87-102); Mean Platelet Volume 10.2 FL (9.6-12.0); Monocytes % 4.4 % (1.7-12.7); Neutrophils % 79.7 % (38.7-73.9); Platelet Count 384 T/CUMM (130-400); Red Blood Count 2.78 MC/CUMM (3.8-5.5); Red Cell Distribution Width 17.2 % (9.3-17.3); White Blood Count 21.7 T/CUMM (4-12)
[2019-09-16 08:40] LABS: Calcium 8.9 MG/DL (8.5-10.1); Osmolality,Calculated 271.8 MOS/KG (273-304)
[2019-09-16 08:43] LABS: Band Neutrophils 2 % (0-10); Hypochromasia 1+; Lymphocytes 10 % (20-55); Platelet Estimate Adequate; Segmented Neutrophils 78 % (50-85); Total Cells Counted 100
[2019-09-16] MEDS: QUEtiapine 25 MG TABLET PO SCH ×2 (08:59→21:29)
[2019-09-16] MEDS: ROSUVASTATIN 20 MG TABLET PO SCH (08:59)
[2019-09-16] MEDS: PANTOPRAZOLE 40 MG TABLET PO SCH (08:59)
[2019-09-16] MEDS: CHOLECALCIFEROL 1,000 UNIT TABLET PO SCH (08:59)
[2019-09-16] MEDS: GABAPENTIN 100 MG CAPSULE PO SCH ×3 (08:59→21:29)
[2019-09-16] MEDS: CYANOCOBALAMIN 500 MCG TABLET PO SCH (09:04)
[2019-09-16] MEDS ORDERED: MAGNESIUM SULF RIDER 2 GM in PREMIX 1 EACH IV ONE (09:31)
[2019-09-16] MEDS: POTASSIUM CHLORIDE 20 MEQ TABLET PO PRN ×3 (10:02→14:50)
[2019-09-16] MEDS: oxyCODONE IR 5 MG TABLET PO PRN ×2 (10:02→17:56)
[2019-09-16] MEDS: VANCOMYCIN INJ 1,500 MG in SODIUM CHLORIDE 0.9% 500 ML IV SCH (10:43)
[2019-09-16] MEDS: ENOXAPARIN 40 MG/0.4 ML SYRINGE SUBCUT SCH (11:19)
[2019-09-16] MEDS: DULoxetine 30 MG CAPSULE PO SCH (21:27)
[2019-09-16] MEDS: LURASIDONE 40 MG TABLET PO SCH (21:27)
[2019-09-16] MEDS: CETIRIZINE 10 MG TABLET PO SCH (21:27)
[2019-09-17] MEDS: VANCOMYCIN INJ 1,500 MG in SODIUM CHLORIDE 0.9% 500 ML IV SCH ×2 (00:19→11:39)
[2019-09-17] MEDS: oxyCODONE IR 5 MG TABLET PO PRN ×2 (05:04→15:42)
[2019-09-17] MEDS: LEVOTHYROXINE 100 MCG TABLET PO SCH (06:29)
[2019-09-17 06:40] LABS: Basophils % 0.2 % (0.0-0.8); Eosinophils # 0.1 10*3/uL (0.0-0.87); Eosinophils % 0.4 % (0.00-10.9); Hematocrit 22.6 VOL% (35.7-47.0); Hemoglobin 7.3 GM/DL (12.0-16.0); Immature Granulocytes % 5.6 %; Lymphocytes # 2.5 10*3/uL (1.4-4.0); Lymphocytes % 10.6 % (21.3-54.2); Mean Corpuscular HGB Conc 32.3 GM/DL (32-36); Mean Platelet Volume 10.1 FL (9.6-12.0); Monocytes % 4.1 % (1.7-12.7); Neutrophils % 79.1 % (38.7-73.9); Platelet Count 392 T/CUMM (130-400); Red Blood Count 2.66 MC/CUMM (3.8-5.5); Red Cell Distribution Width 17.4 % (9.3-17.3); White Blood Count 23.3 T/CUMM (4-12)
[2019-09-17 06:56] LABS: Osmolality,Calculated 272.8 MOS/KG (273-304)
[2019-09-17 07:10] LABS: Band Neutrophils 2 % (0-10); Eosinophils 2 % (0-10); Hypochromasia 1+; Lymphocytes 8 % (20-55); Ovalocytes Slight; Platelet Estimate Adequate; Segmented Neutrophils 84 % (50-85); Total Cells Counted 100
[2019-09-17] MEDS: PANTOPRAZOLE 40 MG TABLET PO SCH (08:38)
[2019-09-17] MEDS: GABAPENTIN 100 MG CAPSULE PO SCH ×3 (08:38→20:51)
[2019-09-17] MEDS: ROSUVASTATIN 20 MG TABLET PO SCH (08:38)
[2019-09-17] MEDS: CHOLECALCIFEROL 1,000 UNIT TABLET PO SCH (08:38)
[2019-09-17] MEDS: CYANOCOBALAMIN 500 MCG TABLET PO SCH (08:38)
[2019-09-17] MEDS: QUEtiapine 25 MG TABLET PO SCH ×2 (08:38→20:51)
[2019-09-17] MEDS: ACETAMINOPHEN 325 MG TABLET PO PRN (11:39)
[2019-09-17] MEDS: ENOXAPARIN 40 MG/0.4 ML SYRINGE SUBCUT SCH (11:39)
[2019-09-17] MEDS: DULoxetine 30 MG CAPSULE PO SCH (20:51)
[2019-09-17] MEDS: LURASIDONE 40 MG TABLET PO SCH (20:52)
[2019-09-17] MEDS: CETIRIZINE 10 MG TABLET PO SCH (20:52)
[2019-09-18] MEDS: VANCOMYCIN INJ 1,500 MG in SODIUM CHLORIDE 0.9% 500 ML IV SCH ×3 (00:47→23:03)
[2019-09-18 05:10] LABS: Basophils # 0.1 10*3/uL (0.0-0.2); Basophils % 0.2 % (0.0-0.8); Eosinophils # 0.1 10*3/uL (0.0-0.87); Eosinophils % 0.5 % (0.00-10.9); Hematocrit 24.2 VOL% (35.7-47.0); Hemoglobin 7.7 GM/DL (12.0-16.0); Immature Granulocytes % 4.9 %; Lymphocytes # 2.7 10*3/uL (1.4-4.0); Lymphocytes % 10.1 % (21.3-54.2); Mean Corpuscular HGB Conc 31.8 GM/DL (32-36); Mean Corpuscular Volume 86.7 FL (87-102); Mean Platelet Volume 10.1 FL (9.6-12.0); Monocytes % 3.6 % (1.7-12.7); Neutrophils % 80.7 % (38.7-73.9); Platelet Count 428 T/CUMM (130-400); Red Blood Count 2.79 MC/CUMM (3.8-5.5); Red Cell Distribution Width 17.3 % (9.3-17.3); White Blood Count 26.6 T/CUMM (4-12)
[2019-09-18 05:38] LABS: Calcium 9.2 MG/DL (8.5-10.1); Osmolality,Calculated 270.1 MOS/KG (273-304)
[2019-09-18] MEDS: oxyCODONE IR 5 MG TABLET PO PRN ×3 (05:59→23:46)
[2019-09-18] MEDS: LEVOTHYROXINE 100 MCG TABLET PO SCH (06:00)
[2019-09-18 06:18] LABS: Lymphocytes 10 % (20-55); Myelocytes 1 %; Segmented Neutrophils 83 % (50-85); Total Cells Counted 100
[2019-09-18 06:21] LABS: Hypochromasia 2+; Platelet Estimate Increased; Target Cells Few
[2019-09-18 06:22] LABS: Polychromasia Few
[2019-09-18] MEDS: CHOLECALCIFEROL 1,000 UNIT TABLET PO SCH (08:55)
[2019-09-18] MEDS: QUEtiapine 25 MG TABLET PO SCH ×2 (08:55→20:39)
[2019-09-18] MEDS: CYANOCOBALAMIN 500 MCG TABLET PO SCH (08:55)
[2019-09-18] MEDS: ROSUVASTATIN 20 MG TABLET PO SCH (08:55)
[2019-09-18] MEDS: PANTOPRAZOLE 40 MG TABLET PO SCH (08:55)
[2019-09-18] MEDS: GABAPENTIN 100 MG CAPSULE PO SCH ×3 (08:56→20:38)
[2019-09-18] MEDS: ENOXAPARIN 40 MG/0.4 ML SYRINGE SUBCUT SCH (12:02)
[2019-09-18] MEDS: DULoxetine 30 MG CAPSULE PO SCH (20:38)
[2019-09-18] MEDS: LURASIDONE 40 MG TABLET PO SCH (20:39)
[2019-09-18] MEDS: CETIRIZINE 10 MG TABLET PO SCH (20:39)
[2019-09-18] MEDS: ACETAMINOPHEN 325 MG TABLET PO PRN (20:43)
[2019-09-19 04:53] LABS: Basophils % 0.2 % (0.0-0.8); Eosinophils # 0.2 10*3/uL (0.0-0.87); Eosinophils % 1.2 % (0.00-10.9); Hematocrit 25.5 VOL% (35.7-47.0); Hemoglobin 7.8 GM/DL (12.0-16.0); Immature Granulocytes Absolute 0.75 #; Lymphocytes # 2.2 10*3/uL (1.4-4.0); Lymphocytes % 12.1 % (21.3-54.2); Mean Corpuscular HGB Conc 30.6 GM/DL (32-36); Mean Corpuscular Volume 89.8 FL (87-102); Mean Platelet Volume 9.8 FL (9.6-12.0); Neutrophils % 79.5 % (38.7-73.9); Platelet Count 478 T/CUMM (130-400); Red Blood Count 2.84 MC/CUMM (3.8-5.5); Red Cell Distribution Width 17.6 % (9.3-17.3); White Blood Count 18.6 T/CUMM (4-12)
[2019-09-19 05:08] LABS: Calcium 9.3 MG/DL (8.5-10.1); Osmolality,Calculated 269.1 MOS/KG (273-304)
[2019-09-19 05:15] LABS: Band Neutrophils 1 % (0-10); Eosinophils 1 % (0-10); Lymphocytes 13 % (20-55); Metamyelocytes 1 %; Platelet Estimate Increased; Polychromasia Few; Segmented Neutrophils 83 % (50-85); Total Cells Counted 100
[2019-09-19 05:16] LABS: Hypochromasia Slight
[2019-09-19] MEDS: LEVOTHYROXINE 100 MCG TABLET PO SCH (06:37)
[2019-09-19] MEDS: ACETAMINOPHEN 325 MG TABLET PO PRN ×2 (06:37→21:36)
[2019-09-19] MEDS: PANTOPRAZOLE 40 MG TABLET PO SCH (09:20)
[2019-09-19] MEDS: ROSUVASTATIN 20 MG TABLET PO SCH (09:21)
[2019-09-19] MEDS: oxyCODONE IR 5 MG TABLET PO PRN (09:21)
[2019-09-19] MEDS: CYANOCOBALAMIN 500 MCG TABLET PO SCH (09:22)
[2019-09-19] MEDS: GABAPENTIN 100 MG CAPSULE PO SCH ×3 (09:22→21:37)
[2019-09-19] MEDS: QUEtiapine 25 MG TABLET PO SCH ×2 (09:22→21:36)
[2019-09-19] MEDS: CHOLECALCIFEROL 1,000 UNIT TABLET PO SCH (09:23)
[2019-09-19] MEDS: VANCOMYCIN INJ 1,500 MG in SODIUM CHLORIDE 0.9% 500 ML IV SCH (11:27)
[2019-09-19] MEDS: ENOXAPARIN 40 MG/0.4 ML SYRINGE SUBCUT SCH (11:27)
[2019-09-19 20:01] VITALS: BP 139/51
[2019-09-19] MEDS: CETIRIZINE 10 MG TABLET PO SCH (21:37)
[2019-09-19] MEDS: LURASIDONE 40 MG TABLET PO SCH (21:37)
[2019-09-19] MEDS: DULoxetine 30 MG CAPSULE PO SCH (21:37)
== END 2019-09-19 22:13 | disposition hospice, home (50) | DRG 349 ==
LOC: N.OR 06:13 → N.SDSINP 06:16 → N.3E 09:24 → N.CC 09-13 08:57 → N.3E 09-14 10:47 → N.5E 09-15 16:21 → N.3E 09-17 10:52
PROVIDERS: ADMIT Internal Medicine; ATTEND Internal Medicine

== ENCOUNTER 2020-02-09 21:12 | Observation (INO) ==
[2020-02-09] MEDS ORDERED: FUROSEMIDE 100 MG/10 ML VIAL IV STA (21:39)
[2020-02-09] MEDS ORDERED: ONDANSETRON 4 MG/2 ML VIAL IV STA (21:39)
[2020-02-09] MEDS ORDERED: VANCOMYCIN INJ 1,000 MG in SODIUM CHLORIDE 0.9% 250 ML IV STA ×2 (21:39→21:45)
[2020-02-09 22:17] LABS: Basophils % 0.2 % (0.0-0.8); Eosinophils # 0.2 10*3/uL (0.0-0.87); Eosinophils % 1.9 % (0.00-10.9); Hematocrit 26.1 VOL% (35.7-47.0); Hemoglobin 8.1 GM/DL (12.0-16.0); Immature Granulocytes % 0.3 %; Immature Granulocytes Absolute 0.03 #; Lymphocytes % 21.2 % (21.3-54.2); Mean Platelet Volume 9.3 FL (9.6-12.0); Monocytes % 4.8 % (1.7-12.7); Neutrophils % 71.6 % (38.7-73.9); Platelet Count 341 T/CUMM (130-400); Red Blood Count 2.61 MC/CUMM (3.8-5.5); Red Cell Distribution Width 18.2 % (9.3-17.3); White Blood Count 9.5 T/CUMM (4-12)
[2020-02-09 22:36] LABS: Alanine Aminotransferase 20 U/L (13-56); Albumin 2.3 G/DL (3.4-5.0); Alkaline Phosphatase 123 U/L (45-117); Aspartate Amino Transferase 47 U/L (0-37); Bilirubin,Total < 0.39 MG/DL (0.2-1.0); Blood Urea Nitrogen 14 MG/DL (7-18); Estimated Glom Filtration Rate 101 ML/MIN; Glucose 97 MG/DL (74-106); Osmolality,Calculated 273.8 MOS/KG (273-304)
[2020-02-09 22:37] LABS: INR 1.1; PT Patient Result 11.4 SECS (9.8-11.9)
[2020-02-09] MEDS ORDERED: MAGNESIUM SULF RIDER 2 GM in PREMIX 1 EACH IV STA (22:37)
[2020-02-09 22:57] LABS: Apearance,Urine CLEAR (Clear); Bilirubin,Urine Negative (Negative); Blood, Urine Negative (Negative); Glucose,Urine (UA) Negative (Negative); Granular Casts,Urine 1 /LPF (0-1); Hyaline Casts,Urine 1 /LPF (0-3); Ketones,Urine Negative (Negative); Mucus,Urine Occasional /LPF (Occasional); Nitrite,Urine Negative (Negative); Protein,Urine Negative; RBC,Urine <1 /HPF (0-4); Urine Color Yellow (Yellow); Urine Specific Gravity 1.012 (1.001-1.035); Urine Urobilinogen < 2.0 EU/DL (0.2-1.0); WBC,Urine <1 /HPF (0-6)
[2020-02-09 23:00] LABS: Barbiturates Screen,Urine Negative (Negative); Benzodiazepines Screen,Urine Negative (Negative); Cannabinoid Screen,Urine Negative (Negative); Opiate Screen,Urine Positive (Negative); Phencyclidine Screen,Urine Negative (Negative)
[2020-02-09] MEDS ORDERED: ONDANSETRON 4 MG/2 ML VIAL IV PRN (23:47)
[2020-02-09] MEDS ORDERED: ACETAMINOPHEN 325 MG TABLET PO PRN (23:47)
[2020-02-09] MEDS ORDERED: DEXTROSE 10% 250 ML BAG IV PRN (23:47)
[2020-02-09] MEDS ORDERED: GLUCAGON 1 MG VIAL IM PRN (23:47)
[2020-02-10] MEDS ORDERED: SODIUM CHLORIDE 0.9% 1,000 ML IV PRN (00:02)
[2020-02-10] MEDS ORDERED: VANCOMYCIN INJ 1,000 MG in SODIUM CHLORIDE 0.9% 250 ML IV ONE (01:30)
[2020-02-10 06:33] LABS: Hematocrit 26.7 VOL% (35.7-47.0); Hemoglobin 8.4 GM/DL (12.0-16.0)
[2020-02-10 07:02] LABS: Albumin 2.3 G/DL (3.4-5.0); Bilirubin,Total 0.4 MG/DL (0.2-1.0); Calcium 8.6 MG/DL (8.5-10.1); Osmolality,Calculated 274.7 MOS/KG (273-304); Total Protein 5.9 G/DL (6.4-8.3)
[2020-02-10] MEDS: BISACODYL 5 MG TABLET PO SCH ×3 (09:04→23:58)
[2020-02-10] MEDS: PANTOPRAZOLE 40 MG TABLET PO SCH ×2 (09:04→21:07)
[2020-02-10 12:39] LABS: Hematocrit 24.6 VOL% (35.7-47.0); Hemoglobin 7.6 GM/DL (12.0-16.0)
[2020-02-10] MEDS: oxyCODONE IR 5 MG TABLET PO PRN (14:16)
[2020-02-10] MEDS: VANCOMYCIN INJ 2,000 MG in SODIUM CHLORIDE 0.9% 500 ML IV SCH (17:00)
[2020-02-10 17:48] LABS: Hematocrit 25.3 VOL% (35.7-47.0); Hemoglobin 7.7 GM/DL (12.0-16.0)
[2020-02-10] MEDS ORDERED: POLYETHYLENE GLYCOL POWDER 255 GM BOTTLE PO ONE (18:00)
[2020-02-10] MEDS ORDERED: MAGNESIUM CITRATE 300 ML BOTTLE PO ONE (21:00)
[2020-02-10] MEDS: ROSUVASTATIN 20 MG TABLET PO SCH (21:07)
[2020-02-10] MEDS: GABAPENTIN 600 MG TABLET PO SCH (21:07)
[2020-02-11 02:16] LABS: Basophils % 0.3 % (0.0-0.8); Eosinophils # 0.2 10*3/uL (0.0-0.87); Eosinophils % 2.8 % (0.00-10.9); Hematocrit 24.5 VOL% (35.7-47.0); Hemoglobin 7.6 GM/DL (12.0-16.0); Immature Granulocytes % 0.3 %; Immature Granulocytes Absolute 0.02 #; Lymphocytes # 1.7 10*3/uL (1.4-4.0); Lymphocytes % 24.5 % (21.3-54.2); Mean Corpuscular Volume 99.2 FL (87-102); Mean Platelet Volume 10.3 FL (9.6-12.0); Monocytes % 5.7 % (1.7-12.7); Neutrophils % 66.4 % (38.7-73.9); Platelet Count 308 T/CUMM (130-400); Red Blood Count 2.47 MC/CUMM (3.8-5.5); White Blood Count 6.9 T/CUMM (4-12)
[2020-02-11 02:18] LABS: Calcium 8.1 MG/DL (8.5-10.1); Osmolality,Calculated 277.3 MOS/KG (273-304)
[2020-02-11] MEDS: LEVOTHYROXINE 100 MCG TABLET PO SCH (06:34)
[2020-02-11] MEDS: VANCOMYCIN INJ 2,000 MG in SODIUM CHLORIDE 0.9% 500 ML IV SCH ×2 (06:34→17:47)
[2020-02-11] MEDS ORDERED: POTASSIUM CHLORIDE 20 MEQ TABLET PO PRN (06:37)
[2020-02-11] MEDS ORDERED: fentaNYL 50 MCG/HR PATCH TRANSDERM SCH (09:00)
[2020-02-11] MEDS: valACYclovir 500 MG TABLET PO SCH (09:25)
[2020-02-11] MEDS: GABAPENTIN 600 MG TABLET PO SCH ×2 (09:25→22:00)
[2020-02-11] MEDS: POTASSIUM CHLORIDE 20 MEQ TABLET PO SCH ×3 (09:26→22:00)
[2020-02-11] MEDS: oxyCODONE IR 5 MG TABLET PO PRN ×2 (09:26→15:30)
[2020-02-11] MEDS: BISACODYL 5 MG TABLET PO SCH ×3 (09:26→23:49)
[2020-02-11] MEDS: PANTOPRAZOLE 40 MG TABLET PO SCH ×2 (09:26→22:00)
[2020-02-11] MEDS ORDERED: SODIUM CHLORIDE 0.9% 1,000 ML IV PRN (11:04)
[2020-02-11] MEDS ORDERED: POLYETHYLENE GLYCOL POWDER 255 GM BOTTLE PO ONE (18:00)
[2020-02-11] MEDS ORDERED: MAGNESIUM CITRATE 300 ML BOTTLE PO ONE (21:00)
[2020-02-11] MEDS ORDERED: DULoxetine 30 MG CAPSULE PO SCH (21:00)
[2020-02-11] MEDS ORDERED: LURASIDONE 40 MG TABLET PO SCH (21:00)
[2020-02-11] MEDS: QUEtiapine 25 MG TABLET PO SCH (22:00)
[2020-02-11] MEDS: ROSUVASTATIN 20 MG TABLET PO SCH (22:00)
[2020-02-12] MEDS: VANCOMYCIN INJ 2,000 MG in SODIUM CHLORIDE 0.9% 500 ML IV SCH (05:26)
[2020-02-12 05:30] LABS: Basophils % 0.1 % (0.0-0.8); Eosinophils # 0.2 10*3/uL (0.0-0.87); Eosinophils % 2.2 % (0.00-10.9); Immature Granulocytes % 0.4 %; Immature Granulocytes Absolute 0.03 #; Lymphocytes # 1.7 10*3/uL (1.4-4.0); Mean Corpuscular Volume 99.2 FL (87-102); Mean Platelet Volume 9.2 FL (9.6-12.0); Monocytes % 6.8 % (1.7-12.7); Neutrophils % 67.5 % (38.7-73.9); Platelet Count 330 T/CUMM (130-400); Red Blood Count 2.52 MC/CUMM (3.8-5.5); Red Cell Distribution Width 17.6 % (9.3-17.3); White Blood Count 7.2 T/CUMM (4-12)
[2020-02-12 05:56] LABS: Calcium 7.9 MG/DL (8.5-10.1); Osmolality,Calculated 274.4 MOS/KG (273-304)
[2020-02-12] MEDS: LEVOTHYROXINE 100 MCG TABLET PO SCH (06:01)
[2020-02-12] MEDS ORDERED: LACTATED RINGERS 1,000 ML IV SCH (06:40)
[2020-02-12] MEDS ORDERED: amLODIPine 10 MG TABLET PO SCH (09:00)
[2020-02-12] MEDS ORDERED: POTASSIUM CHLORIDE 20 MEQ TABLET PO ONE (09:51)
[2020-02-12] MEDS ORDERED: propofoL 200 MG/20 ML VIAL IV ONE (10:00)
[2020-02-12] MEDS ORDERED: LIDOCAINE 2% 5 ML VIAL ONE (10:00)
[2020-02-12] MEDS: PANTOPRAZOLE 40 MG TABLET PO SCH (10:32)
[2020-02-12] MEDS: GABAPENTIN 600 MG TABLET PO SCH (10:32)
[2020-02-12] MEDS: QUEtiapine 25 MG TABLET PO SCH (10:32)
[2020-02-12] MEDS: valACYclovir 500 MG TABLET PO SCH (10:32)
[2020-02-12] MEDS: oxyCODONE IR 5 MG TABLET PO PRN (10:59)
[2020-02-12 12:22] VITALS: BP 113/49
[2020-02-13] MEDS ORDERED: VANCOMYCIN INJ 2,000 MG in SODIUM CHLORIDE 0.9% 500 ML IV SCH (10:00)
== END 2020-02-12 12:34 | disposition home health service (06) ==
LOC: EDUNIT# → EDBD → N.ED 21:12 → INTOOBSV 23:47 → N.EDINP 23:47 → N.TELEN 02-10 00:47
PROVIDERS: ADMIT Internal Medicine; ATTEND Internal Medicine
PROC: COLONBX (2020-02-12 06:35)

== ENCOUNTER 2020-02-22 11:44 | Inpatient (IN) ==
[2020-02-22 13:59] LABS: Apearance,Urine CLEAR (Clear); Bilirubin,Urine Negative (Negative); Blood, Urine Negative (Negative); Glucose,Urine (UA) Negative (Negative); Granular Casts,Urine 1 /LPF (0-1); Ketones,Urine Negative (Negative); Mucus,Urine Occasional /LPF (Occasional); Nitrite,Urine Negative (Negative); Protein,Urine Negative; Squamous Epithelial Cell,Urine Occasional /HPF (0-10); Urine Color Yellow (Yellow); Urine Specific Gravity 1.018 (1.001-1.035); Urine Urobilinogen < 2.0 EU/DL (0.2-1.0)
[2020-02-22 14:28] LABS: Alanine Aminotransferase 15 U/L (13-56); Albumin 2.3 G/DL (3.4-5.0); Alkaline Phosphatase 114 U/L (45-117); Aspartate Amino Transferase 30 U/L (0-37); Bilirubin,Total < 0.39 MG/DL (0.2-1.0); Blood Urea Nitrogen 6 MG/DL (7-18); Calcium 8.5 MG/DL (8.5-10.1); Estimated Glom Filtration Rate 157 ML/MIN; Glucose 88 MG/DL (74-106); Osmolality,Calculated 273.5 MOS/KG (273-304); Total Protein 6.2 G/DL (6.4-8.3)
[2020-02-22 14:42] LABS: Basophils % 0.2 % (0.0-0.8); Eosinophils # 0.1 10*3/uL (0.0-0.87); Eosinophils % 0.8 % (0.00-10.9); Hemoglobin 8.6 GM/DL (12.0-16.0); Immature Granulocytes % 0.3 %; Immature Granulocytes Absolute 0.04 #; Lymphocytes # 1.7 10*3/uL (1.4-4.0); Mean Corpuscular HGB Conc 30.7 GM/DL (32-36); Mean Corpuscular Volume 99.3 FL (87-102); Mean Platelet Volume 8.9 FL (9.6-12.0); Monocytes % 4.4 % (1.7-12.7); Neutrophils % 80.3 % (38.7-73.9); Platelet Count 450 T/CUMM (130-400); Red Blood Count 2.82 MC/CUMM (3.8-5.5); Red Cell Distribution Width 15.5 % (9.3-17.3); White Blood Count 11.8 T/CUMM (4-12)
[2020-02-22] MEDS ORDERED: CLINDAMYCIN INJ 900 MG in PREMIX 1 EACH IV ONE (15:37)
[2020-02-22] MEDS ORDERED: ALBUTEROL/IPRATROPIUM 3 ML NEB RESP TX PRN (16:25)
[2020-02-22] MEDS ORDERED: BISACODYL 5 MG TABLET PO PRN (16:25)
[2020-02-22] MEDS ORDERED: ONDANSETRON 4 MG/2 ML VIAL IV PRN (16:25)
[2020-02-22] MEDS ORDERED: ACETAMINOPHEN 325 MG TABLET PO PRN (16:25)
[2020-02-22 16:39] LABS: Hypochromasia Slight; Lymphocytes 9 % (20-55); Microcytosis Slight; Segmented Neutrophils 87 % (50-85); Total Cells Counted 100
[2020-02-22 17:18] LABS: PT Patient Result 10.9 SECS (9.8-11.9)
[2020-02-22] MEDS: HYDROmorphone 2 MG/1 ML VIAL IV PRN (18:07)
[2020-02-22] MEDS: VANCOMYCIN INJ 2,000 MG in SODIUM CHLORIDE 0.9% 500 ML IV SCH (22:20)
[2020-02-23] MEDS: LACTATED RINGERS 1,000 ML IV SCH ×5 (00:30→16:32)
[2020-02-23 05:13] LABS: Basophils % 0.3 % (0.0-0.8); Eosinophils # 0.2 10*3/uL (0.0-0.87); Eosinophils % 2.6 % (0.00-10.9); Hematocrit 23.3 VOL% (35.7-47.0); Immature Granulocytes % 0.3 %; Immature Granulocytes Absolute 0.02 #; Lymphocytes # 1.5 10*3/uL (1.4-4.0); Lymphocytes % 22.1 % (21.3-54.2); Mean Corpuscular Volume 100.9 FL (87-102); Mean Platelet Volume 8.9 FL (9.6-12.0); Monocytes % 5.2 % (1.7-12.7); Neutrophils % 69.5 % (38.7-73.9); Platelet Count 370 T/CUMM (130-400); Red Blood Count 2.31 MC/CUMM (3.8-5.5); Red Cell Distribution Width 15.7 % (9.3-17.3); White Blood Count 6.9 T/CUMM (4-12)
[2020-02-23 05:30] LABS: Osmolality,Calculated 272.7 MOS/KG (273-304)
[2020-02-23] MEDS: PANTOPRAZOLE 40 MG TABLET PO SCH (08:17)
[2020-02-23] MEDS: VANCOMYCIN INJ 2,000 MG in SODIUM CHLORIDE 0.9% 500 ML IV SCH (08:17)
[2020-02-23] MEDS: POTASSIUM CHLORIDE 20 MEQ TABLET PO PRN ×2 (08:18→14:10)
[2020-02-23] MEDS: HYDROmorphone 2 MG/1 ML VIAL IV PRN ×2 (09:18→15:10)
[2020-02-23] MEDS ORDERED: LIDOCAINE 1%/EPI INJ 20 ML VIAL ONE (10:39)
[2020-02-23] MEDS ORDERED: BUPIVACAINE 0.25% /EPI 10 ML VIAL ONE (10:39)
[2020-02-23] MEDS ORDERED: CLINDAMYCIN INJ 900 MG in PREMIX 1 EACH IV ONE (11:00)
[2020-02-23] MEDS ORDERED: CLINDAMYCIN INJ 50 ML IV ONE (11:08)
[2020-02-23] MEDS ORDERED: MIDAZOLAM 2 MG/2 ML VIAL ONE (13:12)
[2020-02-23] MEDS ORDERED: propofoL 200 MG/20 ML VIAL IV ONE (13:12)
[2020-02-23] MEDS ORDERED: SEVOFLURANE 1 UNIT/15 MINUTE INH ONE (13:12)
[2020-02-23] MEDS ORDERED: LIDOCAINE 2% 5 ML VIAL ONE (13:12)
[2020-02-23] MEDS ORDERED: PHENYLEPHRINE 1 MG/10 ML SYRINGE IV ONE (13:13)
[2020-02-23] MEDS ORDERED: ePHEDrine 50 MG/ML AMP ONE (13:13)
[2020-02-23] MEDS ORDERED: METHOCARBAMOL 500 MG TABLET PO PRN (13:27)
[2020-02-23] MEDS ORDERED: busPIRone 5 MG TABLET PO PRN (13:27)
[2020-02-23] MEDS ORDERED: MAGNESIUM SULF RIDER 2 GM in PREMIX 1 EACH IV PRN (13:32)
[2020-02-23] MEDS ORDERED: MAGNESIUM SULF RIDER 4 GM in PREMIX 1 EACH IV PRN (13:32)
[2020-02-23] MEDS: fentaNYL 50 MCG/HR PATCH TRANSDERM SCH (14:09)
[2020-02-23] MEDS: TORSEMIDE 20 MG TABLET PO SCH ×2 (14:10→21:32)
[2020-02-23] MEDS ORDERED: TUBERCULIN SKIN TEST 0.1 ML SYRINGE INTRADERM ONE (16:00)
[2020-02-23] MEDS: DICYCLOMINE 10 MG CAPSULE PO SCH ×2 (16:15→21:34)
[2020-02-23 16:54] LABS: Apearance,Urine CLEAR (Clear); Bilirubin,Urine Negative (Negative); Blood, Urine Negative (Negative); Glucose,Urine (UA) Negative (Negative); Ketones,Urine Negative (Negative); Nitrite,Urine Negative (Negative); Protein,Urine Negative; RBC,Urine 1 /HPF (0-4); Urine Color Colorless (Yellow); Urine Specific Gravity 1.004 (1.001-1.035); Urine Urobilinogen < 2.0 EU/DL (0.2-1.0); WBC,Urine 2 /HPF (0-6)
[2020-02-23] MEDS: DULoxetine 30 MG CAPSULE PO SCH (21:32)
[2020-02-23] MEDS: QUEtiapine 25 MG TABLET PO SCH (21:33)
[2020-02-23] MEDS: chlorproMAZINE 25 MG TABLET PO SCH (21:33)
[2020-02-23] MEDS: GABAPENTIN 600 MG TABLET PO SCH (21:34)
[2020-02-23] MEDS: CETIRIZINE 10 MG TABLET PO SCH (21:34)
[2020-02-23] MEDS: POTASSIUM CHLORIDE 20 MEQ TABLET PO SCH (21:35)
[2020-02-23] MEDS: LURASIDONE 40 MG TABLET PO SCH (21:35)
[2020-02-24] MEDS: LACTATED RINGERS 1,000 ML IV SCH ×3 (00:32→16:53)
[2020-02-24] MEDS: LEVOTHYROXINE 100 MCG TABLET PO SCH (06:13)
[2020-02-24] MEDS: HYDROmorphone 2 MG/1 ML VIAL IV PRN ×3 (06:31→21:16)
[2020-02-24] MEDS: ASCORBIC ACID 500 MG TABLET PO SCH (08:51)
[2020-02-24] MEDS: DICYCLOMINE 10 MG CAPSULE PO SCH ×4 (08:51→20:49)
[2020-02-24] MEDS: QUEtiapine 25 MG TABLET PO SCH ×2 (08:51→20:48)
[2020-02-24] MEDS: MULTIVITAMIN (CENTRUM) TABLET PO SCH (08:51)
[2020-02-24] MEDS: PANTOPRAZOLE 40 MG TABLET PO SCH (08:51)
[2020-02-24] MEDS: valACYclovir 500 MG TABLET PO SCH (08:51)
[2020-02-24] MEDS: TORSEMIDE 20 MG TABLET PO SCH ×3 (08:52→20:47)
[2020-02-24] MEDS: GABAPENTIN 600 MG TABLET PO SCH ×2 (08:52→20:49)
[2020-02-24] MEDS: POTASSIUM CHLORIDE 20 MEQ TABLET PO SCH ×2 (08:52→20:49)
[2020-02-24] MEDS: CHOLECALCIFEROL 1,000 UNIT TABLET PO SCH (08:52)
[2020-02-24] MEDS: oxyCODONE IR 5 MG TABLET PO PRN (09:06)
[2020-02-24] MEDS: VANCOMYCIN INJ 2,000 MG in SODIUM CHLORIDE 0.9% 500 ML IV SCH (12:08)
[2020-02-24] MEDS: POTASSIUM CHLORIDE 20 MEQ TABLET PO PRN ×2 (12:08→17:03)
[2020-02-24] MEDS: SODIUM HYPOCHLORITE 0.25% IRRIG 473 ML BOTTLE TOP SCH (15:05)
[2020-02-24] MEDS: metOLazone 5 MG TABLET PO SCH (15:26)
[2020-02-24] MEDS: SKIN HEALING OINT (AQUAPHOR) 50 GM TUBE TOP SCH (15:27)
[2020-02-24] MEDS: LURASIDONE 40 MG TABLET PO SCH (20:45)
[2020-02-24] MEDS: chlorproMAZINE 25 MG TABLET PO SCH (20:45)
[2020-02-24] MEDS: DULoxetine 30 MG CAPSULE PO SCH (20:48)
[2020-02-24] MEDS: CETIRIZINE 10 MG TABLET PO SCH (20:50)
[2020-02-25] MEDS: LACTATED RINGERS 1,000 ML IV SCH ×3 (00:38→22:35)
[2020-02-25] MEDS: LEVOTHYROXINE 100 MCG TABLET PO SCH (06:00)
[2020-02-25] MEDS: DICYCLOMINE 10 MG CAPSULE PO SCH ×4 (08:47→21:15)
[2020-02-25] MEDS: TORSEMIDE 20 MG TABLET PO SCH ×3 (08:48→21:15)
[2020-02-25] MEDS: PANTOPRAZOLE 40 MG TABLET PO SCH (08:48)
[2020-02-25] MEDS: POTASSIUM CHLORIDE 20 MEQ TABLET PO SCH ×2 (08:48→21:14)
[2020-02-25] MEDS: MULTIVITAMIN (CENTRUM) TABLET PO SCH (08:48)
[2020-02-25] MEDS: valACYclovir 500 MG TABLET PO SCH (08:48)
[2020-02-25] MEDS: GABAPENTIN 600 MG TABLET PO SCH ×2 (08:48→21:16)
[2020-02-25] MEDS: QUEtiapine 25 MG TABLET PO SCH ×2 (08:49→21:17)
[2020-02-25] MEDS: ASCORBIC ACID 500 MG TABLET PO SCH (08:49)
[2020-02-25] MEDS: HYDROmorphone 2 MG/1 ML VIAL IV PRN ×3 (08:49→22:16)
[2020-02-25] MEDS: CHOLECALCIFEROL 1,000 UNIT TABLET PO SCH (08:49)
[2020-02-25] MEDS: SKIN HEALING OINT (AQUAPHOR) 50 GM TUBE TOP SCH (08:50)
[2020-02-25] MEDS: SODIUM HYPOCHLORITE 0.25% IRRIG 473 ML BOTTLE TOP SCH (08:50)
[2020-02-25] MEDS: VANCOMYCIN INJ 2,000 MG in SODIUM CHLORIDE 0.9% 500 ML IV SCH (12:55)
[2020-02-25] MEDS: chlorproMAZINE 25 MG TABLET PO SCH (21:12)
[2020-02-25] MEDS: LURASIDONE 40 MG TABLET PO SCH (21:14)
[2020-02-25] MEDS: DULoxetine 30 MG CAPSULE PO SCH (21:16)
[2020-02-25] MEDS: CETIRIZINE 10 MG TABLET PO SCH (21:16)
[2020-02-26] MEDS: LEVOTHYROXINE 100 MCG TABLET PO SCH (06:09)
[2020-02-26] MEDS: LACTATED RINGERS 1,000 ML IV SCH ×2 (08:51→16:28)
[2020-02-26] MEDS: TORSEMIDE 20 MG TABLET PO SCH ×2 (08:52→16:28)
[2020-02-26] MEDS: valACYclovir 500 MG TABLET PO SCH (08:53)
[2020-02-26] MEDS: MULTIVITAMIN (CENTRUM) TABLET PO SCH (08:53)
[2020-02-26] MEDS: QUEtiapine 25 MG TABLET PO SCH (08:53)
[2020-02-26] MEDS: CHOLECALCIFEROL 1,000 UNIT TABLET PO SCH (08:54)
[2020-02-26] MEDS: DICYCLOMINE 10 MG CAPSULE PO SCH ×2 (08:54→12:41)
[2020-02-26] MEDS: GABAPENTIN 600 MG TABLET PO SCH (08:54)
[2020-02-26] MEDS: POTASSIUM CHLORIDE 20 MEQ TABLET PO SCH (08:54)
[2020-02-26] MEDS: PANTOPRAZOLE 40 MG TABLET PO SCH (08:55)
[2020-02-26] MEDS: ASCORBIC ACID 500 MG TABLET PO SCH (08:55)
[2020-02-26] MEDS: SKIN HEALING OINT (AQUAPHOR) 50 GM TUBE TOP SCH (08:56)
[2020-02-26] MEDS: SODIUM HYPOCHLORITE 0.25% IRRIG 473 ML BOTTLE TOP SCH (08:56)
[2020-02-26 12:05] VITALS: BP 109/58
[2020-02-26] MEDS: VANCOMYCIN INJ 2,000 MG in SODIUM CHLORIDE 0.9% 500 ML IV SCH (12:41)
[2020-02-26] MEDS: metOLazone 5 MG TABLET PO SCH (12:41)
[2020-02-26] MEDS: fentaNYL 50 MCG/HR PATCH TRANSDERM SCH (12:42)
[2020-02-26] MEDS: oxyCODONE IR 5 MG TABLET PO PRN (12:55)
== END 2020-02-26 16:27 | disposition home health service (06) | DRG 197 ==
LOC: EDBD → EDUNIT# → N.ED 11:44 → N.EDINP 16:25 → N.TELEN 20:55
PROVIDERS: ADMIT Student in an Organized Health Care Education/Training Program; ATTEND Student in an Organized Health Care Education/Training Program

== ENCOUNTER 2020-09-25 19:29 | Observation (INO) ==
[2020-09-25] MEDS ORDERED: SODIUM CHLORIDE 0.9% 500 ML IV STA (19:59)
[2020-09-25] MEDS ORDERED: PANTOPRAZOLE 40 MG VIAL IV STA (19:59)
[2020-09-25] MEDS ORDERED: ONDANSETRON 4 MG/2 ML VIAL IV STA (19:59)
[2020-09-25 20:25] LABS: Albumin 3.6 G/DL (3.4-5.0); Bilirubin,Total 0.6 MG/DL (0.2-1.0); Osmolality,Calculated 270.4 MOS/KG (273-304); Potassium 5.1 MMOL/L (3.5-5.1)
[2020-09-25 20:45] LABS: Basophils % 0.1 % (0.0-0.8); Eosinophils % 0.3 % (0.00-10.9); Hemoglobin 11.2 GM/DL (12.0-16.0); Immature Granulocytes % 0.4 %; Immature Granulocytes Absolute 0.05 #; Lymphocytes # 1.6 10*3/uL (1.4-4.0); Lymphocytes % 13.7 % (21.3-54.2); Mean Corpuscular Volume 97.5 FL (87-102); Mean Platelet Volume 9.7 FL (9.6-12.0); Monocytes # 0.6 10*3/uL (0.11-0.8); Neutrophils % 80.5 % (38.7-73.9); Platelet Count 238 T/CUMM (130-400); Red Blood Count 3.59 MC/CUMM (3.8-5.5); Red Cell Distribution Width 14.6 % (9.3-17.3); White Blood Count 11.9 T/CUMM (4-12)
[2020-09-25 23:46] LABS: Bilirubin,Urine Negative (Negative); Blood, Urine Negative (Negative); Glucose,Urine (UA) Negative (Negative); Ketones,Urine Negative (Negative); Mucus,Urine Occasional /LPF (Occasional); Nitrite,Urine Negative (Negative); Protein,Urine Negative; RBC,Urine 2 /HPF (0-4); Squamous Epithelial Cell,Urine Occasional /HPF (0-10); Urine Appearance CLEAR (Clear); Urine Color Straw (Yellow); Urine Specific Gravity 1.025 (1.001-1.035); Urine Urobilinogen < 2.0 EU/DL (0.2-1.0); WBC,Urine 2 /HPF (0-6)
[2020-09-26] MEDS ORDERED: DEXTROSE 50% 25 GM/50 ML VIAL IV PRN ×2 (01:45→13:00)
[2020-09-26] MEDS ORDERED: ONDANSETRON 4 MG/2 ML VIAL IV PRN (01:45)
[2020-09-26] MEDS ORDERED: GLUCAGON 1 MG VIAL IM PRN (01:45)
[2020-09-26] MEDS ORDERED: busPIRone 5 MG TABLET PO PRN (01:48)
[2020-09-26] MEDS ORDERED: DEXTROSE 50% 25 GM/50 ML SYRINGE IV PRN (01:52)
[2020-09-26 05:46] LABS: Albumin 3.7 G/DL (3.4-5.0); Bilirubin,Total 0.5 MG/DL (0.2-1.0); Calcium 9.4 MG/DL (8.5-10.1); Osmolality,Calculated 276.7 MOS/KG (273-304); Potassium 4.3 MMOL/L (3.5-5.1); Total Protein 8.2 G/DL (6.4-8.3)
[2020-09-26] MEDS ORDERED: LEVOTHYROXINE 50 MCG TABLET PO SCH (06:00)
[2020-09-26] MEDS: metroNIDAZOLE 500 MG TABLET PO SCH ×2 (06:16→15:27)
[2020-09-26 06:29] LABS: Basophils % 0.2 % (0.0-0.8); Eosinophils # 0.1 10*3/uL (0.0-0.87); Eosinophils % 0.6 % (0.00-10.9); Hematocrit 39.2 VOL% (35.7-47.0); Hemoglobin 12.3 GM/DL (12.0-16.0); Immature Granulocytes % 0.4 %; Immature Granulocytes Absolute 0.04 #; Lymphocytes # 1.8 10*3/uL (1.4-4.0); Lymphocytes % 16.7 % (21.3-54.2); Mean Corpuscular HGB Conc 31.4 GM/DL (32-36); Mean Platelet Volume 10.2 FL (9.6-12.0); Monocytes # 0.5 10*3/uL (0.11-0.8); Monocytes % 4.6 % (1.7-12.7); Neutrophils % 77.5 % (38.7-73.9); Platelet Count 264 T/CUMM (130-400); Red Blood Count 3.88 MC/CUMM (3.8-5.5); Red Cell Distribution Width 14.9 % (9.3-17.3); White Blood Count 10.6 T/CUMM (4-12)
[2020-09-26 06:50] LABS: Hematocrit 36.4 VOL% (35.7-47.0); Hemoglobin 11.4 GM/DL (12.0-16.0)
[2020-09-26] MEDS ORDERED: TORSEMIDE 20 MG TABLET PO SCH (09:00)
[2020-09-26] MEDS ORDERED: amLODIPine 10 MG TABLET PO SCH (09:00)
[2020-09-26] MEDS ORDERED: SKIN HEALING OINT (AQUAPHOR) 50 GM TUBE TOP SCH (09:00)
[2020-09-26] MEDS ORDERED: CHOLECALCIFEROL 1,000 UNIT TABLET PO SCH (09:00)
[2020-09-26] MEDS ORDERED: GABAPENTIN 600 MG TABLET PO SCH (09:00)
[2020-09-26] MEDS ORDERED: LACTULOSE 20 GM/30 ML UDCUP PO SCH (09:00)
[2020-09-26] MEDS ORDERED: VITAMIN E 400 UNIT CAPSULE PO SCH (09:00)
[2020-09-26] MEDS ORDERED: SODIUM HYPOCHLORITE 0.25% IRRIG 473 ML BOTTLE TOP SCH (09:00)
[2020-09-26] MEDS ORDERED: metOLazone 5 MG TABLET PO SCH (09:00)
[2020-09-26] MEDS ORDERED: CIPROFLOXACIN 500 MG TABLET PO SCH (09:00)
[2020-09-26] MEDS ORDERED: NON-FORMULARY MEDICATION (Vitamin A 8,000 unit Capsule) PO SCH (09:00)
[2020-09-26] MEDS ORDERED: ASCORBIC ACID 500 MG TABLET PO SCH (09:00)
[2020-09-26] MEDS ORDERED: QUEtiapine 25 MG TABLET PO SCH (09:00)
[2020-09-26] MEDS ORDERED: POTASSIUM CHLORIDE 20 MEQ TABLET PO SCH (09:00)
[2020-09-26] MEDS ORDERED: PANTOPRAZOLE 40 MG VIAL IV SCH (09:00)
[2020-09-26] MEDS ORDERED: CYANOCOBALAMIN 500 MCG TABLET PO SCH (09:00)
[2020-09-26] MEDS ORDERED: DOXYCYCLINE HYCLATE 100 MG CAPSULE PO SCH (09:00)
[2020-09-26] MEDS ORDERED: ZINC GLUCONATE 50 MG TABLET PO SCH (09:00)
[2020-09-26] MEDS ORDERED: valACYclovir 500 MG TABLET PO SCH (09:00)
[2020-09-26] MEDS: ACETAMINOPHEN 325 MG TABLET PO PRN ×2 (09:28→19:05)
[2020-09-26 10:32] LABS: Hematocrit 36.6 VOL% (35.7-47.0); Hemoglobin 11.8 GM/DL (12.0-16.0)
[2020-09-26] MEDS ORDERED: oxyCODONE IR 5 MG TABLET PO PRN (12:26)
[2020-09-26 14:50] LABS: Hematocrit 34.4 VOL% (35.7-47.0); Hemoglobin 11.2 GM/DL (12.0-16.0)
[2020-09-26 16:33] VITALS: BP 136/83
[2020-09-26 17:59] LABS: Hematocrit 34.8 VOL% (35.7-47.0); Hemoglobin 11.2 GM/DL (12.0-16.0)
[2020-09-26] MEDS ORDERED: ROSUVASTATIN 20 MG TABLET PO SCH (21:00)
[2020-09-26] MEDS ORDERED: DULoxetine 30 MG CAPSULE PO SCH (21:00)
[2020-09-26] MEDS ORDERED: LURASIDONE 40 MG TABLET PO SCH (21:00)
== END 2020-09-26 19:55 | disposition home or self-care (01) ==
LOC: EDBD → EDUNIT# → N.ED 19:29 → N.EDINP 19:29 → N.5E 09-26 09:32
PROVIDERS: ADMIT Internal Medicine; ATTEND Internal Medicine

== ENCOUNTER 2020-11-30 11:40 | Observation (INO) ==
[2020-11-30 13:44] LABS: Basophils % 0.1 % (0.0-0.8); Eosinophils # 0.2 10*3/uL (0.0-0.87); Hematocrit 36.3 VOL% (35.7-47.0); Hemoglobin 11.4 GM/DL (12.0-16.0); Immature Granulocytes % 0.3 %; Immature Granulocytes Absolute 0.05 #; Lymphocytes # 1.5 10*3/uL (1.4-4.0); Lymphocytes % 9.4 % (21.3-54.2); Mean Corpuscular HGB Conc 31.4 GM/DL (32-36); Mean Corpuscular Volume 101.7 FL (87-102); Mean Platelet Volume 9.7 FL (9.6-12.0); Monocytes % 3.4 % (1.7-12.7); Neutrophils % 85.8 % (38.7-73.9); Platelet Count 242 T/CUMM (130-400); Red Blood Count 3.57 MC/CUMM (3.8-5.5); Red Cell Distribution Width 14.5 % (9.3-17.3); White Blood Count 15.8 T/CUMM (4-12)
[2020-11-30 14:03] LABS: Albumin 3.2 G/DL (3.4-5.0); Bilirubin,Total 0.4 MG/DL (0.2-1.0); Osmolality,Calculated 268.1 MOS/KG (273-304); Potassium 4.1 MMOL/L (3.5-5.1); Total Protein 7.7 G/DL (5.0-7.5)
[2020-11-30] MEDS ORDERED: MAGNESIUM SULF RIDER 4 GM in PREMIX 1 EACH IV PRN (16:11)
[2020-11-30] MEDS ORDERED: ACETAMINOPHEN 325 MG TABLET PO PRN (16:11)
[2020-11-30] MEDS ORDERED: DEXTROSE 50% 25 GM/50 ML VIAL IV PRN (16:11)
[2020-11-30] MEDS ORDERED: GLUCAGON 1 MG VIAL IM PRN (16:11)
[2020-11-30] MEDS ORDERED: ONDANSETRON 4 MG/2 ML VIAL IV PRN (16:11)
[2020-11-30] MEDS ORDERED: MAGNESIUM SULF RIDER 2 GM in PREMIX 1 EACH IV PRN (16:11)
[2020-11-30] MEDS: ENOXAPARIN 40 MG/0.4 ML SYRINGE SUBCUT SCH (19:14)
[2020-11-30] MEDS: FUROSEMIDE 40 MG/4 ML VIAL IV SCH (19:14)
[2020-11-30] MEDS: PANTOPRAZOLE 40 MG TABLET PO SCH (19:15)
[2020-11-30] MEDS: DICYCLOMINE 10 MG CAPSULE PO SCH ×2 (19:15→22:11)
[2020-11-30] MEDS: oxyCODONE IR 5 MG TABLET PO PRN (20:33)
[2020-11-30] MEDS: DULoxetine 30 MG CAPSULE PO SCH (20:35)
[2020-11-30] MEDS: QUEtiapine 100 MG TABLET PO SCH (20:36)
[2020-11-30] MEDS: ROSUVASTATIN 20 MG TABLET PO SCH (20:36)
[2020-11-30] MEDS: GABAPENTIN 600 MG TABLET PO SCH (20:36)
[2020-11-30] MEDS: POTASSIUM CHLORIDE 20 MEQ TABLET PO SCH (20:37)
[2020-11-30] MEDS: CETIRIZINE 10 MG TABLET PO SCH (20:37)
[2020-11-30] MEDS: LURASIDONE 60 MG TABLET PO SCH (22:12)
[2020-12-01] MEDS: oxyCODONE IR 5 MG TABLET PO PRN ×2 (04:56→17:26)
[2020-12-01 05:20] LABS: Basophils % 0.1 % (0.0-0.8); Eosinophils # 0.2 10*3/uL (0.0-0.87); Eosinophils % 1.5 % (0.00-10.9); Hematocrit 33.9 VOL% (35.7-47.0); Hemoglobin 10.8 GM/DL (12.0-16.0); Immature Granulocytes % 0.3 %; Immature Granulocytes Absolute 0.04 #; Lymphocytes # 1.7 10*3/uL (1.4-4.0); Mean Corpuscular HGB Conc 31.9 GM/DL (32-36); Mean Corpuscular Volume 100.3 FL (87-102); Mean Platelet Volume 9.7 FL (9.6-12.0); Neutrophils % 78.1 % (38.7-73.9); Platelet Count 233 T/CUMM (130-400); Red Blood Count 3.38 MC/CUMM (3.8-5.5); Red Cell Distribution Width 14.4 % (9.3-17.3); White Blood Count 11.5 T/CUMM (4-12)
[2020-12-01 06:01] LABS: Bilirubin,Total 0.8 MG/DL (0.2-1.0); Osmolality,Calculated 268.1 MOS/KG (273-304); Potassium 3.5 MMOL/L (3.5-5.1); Total Protein 7.2 G/DL (5.0-7.5)
[2020-12-01] MEDS: LEVOTHYROXINE 100 MCG TABLET PO SCH (06:18)
[2020-12-01] MEDS: CHOLECALCIFEROL 1,000 UNIT TABLET PO SCH (08:59)
[2020-12-01] MEDS: CYANOCOBALAMIN 500 MCG TABLET PO SCH (08:59)
[2020-12-01] MEDS: GABAPENTIN 600 MG TABLET PO SCH ×2 (09:00→20:22)
[2020-12-01] MEDS: ZINC GLUCONATE 50 MG TABLET PO SCH (09:00)
[2020-12-01] MEDS: POTASSIUM CHLORIDE 20 MEQ TABLET PO SCH ×2 (09:00→20:22)
[2020-12-01] MEDS: QUEtiapine 100 MG TABLET PO SCH ×2 (09:00→20:22)
[2020-12-01] MEDS: ASCORBIC ACID 500 MG TABLET PO SCH (09:00)
[2020-12-01] MEDS: VITAMIN E 400 UNIT CAPSULE PO SCH (09:00)
[2020-12-01] MEDS: PANTOPRAZOLE 40 MG TABLET PO SCH (09:00)
[2020-12-01] MEDS: DICYCLOMINE 10 MG CAPSULE PO SCH ×4 (09:01→20:22)
[2020-12-01] MEDS: FUROSEMIDE 40 MG/4 ML VIAL IV SCH ×2 (09:01→16:48)
[2020-12-01] MEDS: valACYclovir 500 MG TABLET PO SCH (09:01)
[2020-12-01] MEDS ORDERED: VANCOMYCIN INJ 2,250 MG in SODIUM CHLORIDE 0.9% 500 ML IV ONE (11:00)
[2020-12-01] MEDS: LIDOCAINE 1%/EPI INJ 20 ML VIAL MISC INJ ONE ×2 (15:45→17:05)
[2020-12-01] MEDS: ROSUVASTATIN 20 MG TABLET PO SCH (20:21)
[2020-12-01] MEDS: DULoxetine 30 MG CAPSULE PO SCH (20:21)
[2020-12-01] MEDS: CETIRIZINE 10 MG TABLET PO SCH (20:22)
[2020-12-01] MEDS: ENOXAPARIN 40 MG/0.4 ML SYRINGE SUBCUT SCH (20:22)
[2020-12-01] MEDS: LURASIDONE 60 MG TABLET PO SCH (20:25)
[2020-12-02] MEDS: LEVOTHYROXINE 100 MCG TABLET PO SCH (06:18)
[2020-12-02] MEDS: CYANOCOBALAMIN 500 MCG TABLET PO SCH (09:17)
[2020-12-02] MEDS: valACYclovir 500 MG TABLET PO SCH (09:17)
[2020-12-02] MEDS: PANTOPRAZOLE 40 MG TABLET PO SCH (09:17)
[2020-12-02] MEDS: ASCORBIC ACID 500 MG TABLET PO SCH (09:18)
[2020-12-02] MEDS: GABAPENTIN 600 MG TABLET PO SCH ×2 (09:18→20:41)
[2020-12-02] MEDS: POTASSIUM CHLORIDE 20 MEQ TABLET PO SCH ×2 (09:18→20:41)
[2020-12-02] MEDS: DICYCLOMINE 10 MG CAPSULE PO SCH ×4 (09:18→20:41)
[2020-12-02] MEDS: QUEtiapine 100 MG TABLET PO SCH ×2 (09:18→20:41)
[2020-12-02] MEDS: VITAMIN E 400 UNIT CAPSULE PO SCH (09:18)
[2020-12-02] MEDS: ZINC GLUCONATE 50 MG TABLET PO SCH (09:18)
[2020-12-02] MEDS: FUROSEMIDE 40 MG/4 ML VIAL IV SCH ×2 (09:19→16:52)
[2020-12-02] MEDS: oxyCODONE IR 5 MG TABLET PO PRN ×3 (09:19→23:13)
[2020-12-02] MEDS: CHOLECALCIFEROL 1,000 UNIT TABLET PO SCH (09:23)
[2020-12-02] MEDS: LURASIDONE 60 MG TABLET PO SCH (20:21)
[2020-12-02] MEDS: CETIRIZINE 10 MG TABLET PO SCH (20:41)
[2020-12-02] MEDS: DULoxetine 30 MG CAPSULE PO SCH (20:41)
[2020-12-02] MEDS: ROSUVASTATIN 20 MG TABLET PO SCH (20:41)
[2020-12-02] MEDS: ENOXAPARIN 40 MG/0.4 ML SYRINGE SUBCUT SCH (20:41)
[2020-12-03] MEDS: LEVOTHYROXINE 100 MCG TABLET PO SCH (07:02)
[2020-12-03 07:59] VITALS: BP 118/55
[2020-12-03] MEDS: CYANOCOBALAMIN 500 MCG TABLET PO SCH (08:55)
[2020-12-03] MEDS: CHOLECALCIFEROL 1,000 UNIT TABLET PO SCH (08:55)
[2020-12-03] MEDS: VITAMIN E 400 UNIT CAPSULE PO SCH (08:55)
[2020-12-03] MEDS: ASCORBIC ACID 500 MG TABLET PO SCH (08:55)
[2020-12-03] MEDS: DICYCLOMINE 10 MG CAPSULE PO SCH (08:55)
[2020-12-03] MEDS: oxyCODONE IR 5 MG TABLET PO PRN (08:55)
[2020-12-03] MEDS: POTASSIUM CHLORIDE 20 MEQ TABLET PO SCH (08:55)
[2020-12-03] MEDS: PANTOPRAZOLE 40 MG TABLET PO SCH (08:55)
[2020-12-03] MEDS: QUEtiapine 100 MG TABLET PO SCH (08:55)
[2020-12-03] MEDS: valACYclovir 500 MG TABLET PO SCH (08:55)
[2020-12-03] MEDS: ZINC GLUCONATE 50 MG TABLET PO SCH (08:55)
[2020-12-03] MEDS: GABAPENTIN 600 MG TABLET PO SCH (08:55)
[2020-12-03] MEDS: FUROSEMIDE 40 MG/4 ML VIAL IV SCH (09:14)
== END 2020-12-03 09:05 | disposition home health service (06) ==
LOC: N.ED 11:40 → N.EDINP 11:40 → N.5E 19:45 → UNDODISOB 12-03 09:05
PROVIDERS: ADMIT Internal Medicine; ATTEND Internal Medicine